=== PATIENT | male | born 1955 | race Caucasian/White ===

== ENCOUNTER 2016-09-13 09:35 | Inpatient (IN) | payer BC ==
[2016-09-13] VITALS (18 sets, daily range): BP systolic 97–160; BP diastolic 65–89
[~2016-09-13] VITALS: Ht 172.7 cm; Wt 65.3 kg
[2016-09-13] MEDS ORDERED: IV NORMAL SALINE 1000ML BAG 1,000 ML IV SCH (10:44)
[2016-09-13] MEDS ORDERED: MECLIZINE HCL 12.5 MG TABLET. PO ONE (10:45)
[2016-09-13] MEDS ORDERED: FENTANYL PF 100 MCG/2 ML VIAL. IV ONE (10:45)
[2016-09-13 10:56] LABS: BASO # 0.1 x10^3/uL (0.0-0.2); BASO % 1 % (0-3); EOS % 3 % (0-3); HEMATOCRIT 40.1 % (39.0-53.0); HEMOGLOBIN 13.2 g/dL (13.0-17.5); LYMPH # 0.8 x10^3/uL (1.0-4.8); LYMPH % 12 % (24-48); MEAN CORPUSCULAR HEMOGLOBIN 28 pg (25-35); MEAN CORPUSCULAR HGB CONC 33 g/dL (31-37); MEAN CORPUSCULAR VOLUME 84 fL (79-100); MONO % 8 % (0-9); NEUT % 76 % (31-73); PLATELET COUNT 253 x10^3/uL (140-400); RED BLOOD COUNT 4.77 x10^6/uL (4.30-5.70); RED CELL DISTRIBUTION WIDTH 16.5 % (11.5-14.5); WHITE BLOOD COUNT 6.6 x10^3/uL (4.0-11.0)
[2016-09-13] MEDS ORDERED: NICARDIPINE HCL 50 MG in IV NORMAL SALINE 250ML 250 ML IV PRN ×2 (11:15→12:00)
--- NOTE | 2016-09-13 11:16 | RAD ---
Indication difficulty walking. Nausea. Ataxia. Noncontrast imaging through the head was performed. No prior imaging of the head is available. The calvarium appears unremarkable. The visualized paranasal sinuses appear normal. There is a hyperdense, reasonably well-defined, 4.5 cm mass in the right posterior fossa consistent with an area of bleeding. There is some surrounding edema and mass effect. It is uncertain whether the bleeding is intra or extra-axial. There is some associated mild obstructive hydrocephalus. Supratentorially, apart from the mild obstructive hydrocephalus the examination is unremarkable. IMPRESSION: 4.5 cm mass in the right posterior fossa compatible with an area of bleeding. There is some associated obstructive hydrocephalus. It is uncertain whether the bleeding is intra or extra-axial in nature. The etiology is not clear on this exam. MRI should be considered for additional evaluation PQRS Compliance Statement: One or more of the following individualized dose reduction techniques were utilized for this examination: 1. Automated exposure control 2. Adjustment of the mA and/or kV according to patient size 3. Use of iterative reconstruction technique
[2016-09-13 11:18] LABS: CREATININE 0.9 mg/dL (0.7-1.3); GFR 86.4; POTASSIUM 3.5 mmol/L (3.5-5.1)
[2016-09-13] MEDS ORDERED: ONDANSETRON PF 4 MG/2 ML VIAL. IV PRN (11:30)
[2016-09-13] MEDS ORDERED: ACETAMINOPHEN 325 MG TABLET. PO PRN (11:30)
--- NOTE | 2016-09-13 11:55 | EKG ---
[facility] [address] [place] [address] Test Date: 2016-09-13 Test Time: 11:17:24 Pat Name: TERRA SANTAMARIA Department: Room: Gender: [employer] Operator: : 1955 Requested By: Juan David MOSELEY Order Number: [id number] Reading MD: Florencia Avendano Measurements Intervals [place] Rate: 65 P: 36 [place]: 136 QRS: 33 QRSD: 90 T: 36 QT: 446 QTc: 469 Interpretive Statements SINUS RHYTHM NORMAL ECG RI6.01 Unconfirmed report No previous ECG available for comparison Electronically Signed On 09-17-2016 10:13:35 [employer] by Florencia Avendano
[2016-09-13] MEDS ORDERED: DEXAMETHASONE SOD PHOS 20 MG/5 ML VIAL. IV ONE (12:00)
[2016-09-13] MEDS ORDERED: GADOBUTROL 7.5 MMOL/7.5 ML VIAL IV ONE (13:00)
--- NOTE | 2016-09-13 13:04 | RAD ---
PROCEDURE MRI brain without and with contrast. HISTORY Headache with hypertension, [place], dizziness, ataxia, hemorrhage TECHNIQUE Multiplanar, multi sequential pre and post contrast MR imaging was performed of the head. Contrast: 7.5 cc Gadavist COMPARISON None other than CT head earlier the same day FINDINGS Corresponding with the CT findings, there is a large intra-axial, enhancing mass of the right cerebellum, slightly hyperintense on the T1 sequence. Mass measures on the order of 4.6 centimeters transverse by 4.4 centimeters AP by 2.9 centimeters cc. There is some corresponding mild decreased signal on the gradient echo sequence. There is adjacent vasogenic edema signified by T2 and FLAIR hyperintense signal abnormality. There is mass effect of upon the partially effaced 4th ventricle which is somewhat deviated to the left. There are other smaller foci of abnormal intra-axial enhancement such as of the right occipital cortex axial image 12 0.4 cm, left caudate head 0.4 cm, left parietal lobe 0.4 cm axial image 15, left parietal lobe axial image 18 0.2 cm, tiny 0.1 cm right frontal lesion axial image 22, 2 right parietal lesions axial images 18 and 21 with the largest 0.6 cm, right frontal lobe axial image 21 0.4 cm, left lateral cerebellum axial image 3 0.7 cm. There are multiple other small foci of nonenhancing T2 and FLAIR hyperintense signal of the supratentorial white matter in a bilateral distribution greatest of the frontal parietal lobes. Other small enhancing lesions are associated with variable mild T2 and FLAIR hyperintense signal abnormality. There is very mild 3rd and lateral ventriculomegaly. There is no supratentorial midline shift. There is no restricted diffusion suggestive of recent infarct. 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 There is patchy minimal fluid and thickening of the mastoid air cells bilaterally. There is preservation of the major arterial intracranial flow voids at the skull base. There is patchy minimal ethmoid air cell mucosal thickening. There is some deviation of the nasal septum to the left. There is no significant abnormality of the pineal gland or the pituitary gland. IMPRESSION 1. There is a large, partially hemorrhagic, enhancing mass of the right cerebellum, multiple other smaller foci of the supratentorial parenchyma and also left lateral cerebellum. 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 Right cerebellar lesion results in partial effacement of the 4th ventricle, very mild 3rd and lateral ventriculomegaly. 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 2. Other scattered small foci of nonenhancing T2 and FLAIR hyperintense signal abnormality of the supratentorial white matter are nonspecific, may be due to chronic microvascular ischemic disease. Electronically signed by: Иван Ugalde MD (Sep 13, 2016 13:03:55)
[2016-09-13] MEDS: FENTANYL PF 100 MCG/2 ML VIAL. IV PRN ×2 (13:09→17:51)
--- NOTE | 2016-09-13 13:10 | PHYS DOC ---
Past Medical History Past Medical History: GERD Additional Past Medical Histor: Esophageal cancer s/p esophagectomy Past Surgical History: Cholecystectomy Additional Past Surgical Histo: PARTIAL STOMACH AND ESOPHAGUS REMOVED Alcohol Use: None Drug Use: None Adult General Chief Complaint Chief Complaint: NAUSEA/VOMITING/DIARRHA HPI HPI Patient is a 61 year old male who presents with 5 weeks of intermittent headaches, constant dizziness with fluctuations of intensity, and intermittent nausea. He was in [place] when his symptoms started. He saw a doctor in [place] with no workup and received medication for headache and dizziness. He has had occipital headaches that are gradual in onset and intermittent every 2-3 days over the past 5 weeks. States he has a baseline mild dizziness that worsens with head movements or standing up. When his headache and dizziness is worst, he has nausea without emesis. He denies vision changes, numbness, tingling, weakness, chest pain, palpitations, diaphoresis, lightheadedness, fever or chills, abdominal pain, diarrhea, dysuria. He notes he has esophagectomy with partial gastrectomy due to esophageal cancer. States he had full body imaging other than his head. Review of Systems Review of Systems Constitutional: Denies fever or chills [] Eyes: Denies change in visual acuity, redness, or eye pain [] HENT: Denies nasal congestion or sore throat [] Respiratory: Denies cough or shortness of breath [] Cardiovascular: No additional information not addressed in HPI [] GI: Denies abdominal pain, nausea, vomiting, bloody stools or diarrhea [] : Denies dysuria or hematuria [] Musculoskeletal: Denies back pain or joint pain [] Integument: Denies rash or skin lesions [] Neurologic: Denies focal weakness or sensory changes [] Endocrine: Denies polyuria or polydipsia [] Current Medications Current Medications Current Medications Medications (Trade) Dose Ordered Sig/Isai Start Time Stop Time Status Last Admin Dose Admin Fentanyl Citrate (Fentanyl 2ml Vial) 50 mcg 1X ONCE 09/13/16 10:45 09/13/16 10:53 DC 09/13/16 11:20 50 MCG Meclizine HCl 25 mg 25 mg 1X ONCE 09/13/16 10:45 09/13/16 10:53 DC 09/13/16 11:19 25 MG Nicardipine HCl/ Sodium Chloride (Cardene/Iv Sodium Chloride 0.9% 250ml) 270 ml @ 0 mls/hr CONT PRN 09/13/16 11:15 09/13/16 11:22 DC Sodium Chloride (Iv Sodium Chloride 0.9% 1000ml Bag) 1,000 ml @ 1,000 mls/hr Q1H 09/13/16 10:44 09/13/16 11:43 DC 09/13/16 11:20 1,000 MLS/HR Allergies Allergies Allergies Coded Allergies Type Severity Reaction Last Updated Verified No Known Drug Allergies 09/13/16 No Physical Exam Physical Exam Constitutional: Well developed, well nourished, no acute distress, non-toxic appearance. [] HENT: Normocephalic, atraumatic, bilateral external ears normal, oropharynx moist, no oral exudates, nose normal. [] Eyes: PERRLA, EOMI. [] Neck: Normal range of motion, supple. [] Cardiovascular:Heart rate regular rhythm [] Lungs & Thorax: Bilateral breath sounds clear to auscultation [] Abdomen: Bowel sounds normal, soft, no tenderness. [] Skin: Warm, dry, no erythema, no rash. [] Back: No tenderness, no CVA tenderness. [] Extremities: ROM intact, no edema. [] Neurologic: Alert and oriented X 3, normal motor function, normal sensory function, no focal deficits noted, cranial nerves II through XII intact, no nystagmus with right lateral gaze, positive Romberg, no extremity drift. [] Psychologic: Affect normal, judgement normal, mood normal. [] Current Patient Data Vital Signs Vital Signs Date Time Temp Pulse Resp B/P Pulse Ox O2 Delivery O2 Flow Rate FiO2 09/13/16 11:20 20 97 Room Air 09/13/16 11:15 60 175/88 09/13/16 09:43 97.4 97.4 Lab Values Laboratory Tests Test 09/13/16 09:40 White Blood Count 6.6x10^3/uL (4.0-11.0) Red Blood Count 4.77x10^6/uL (4.30-5.70) Hemoglobin 13.2g/dL (13.0-17.5) Hematocrit 40.1% (39.0-53.0) Mean Corpuscular Volume 84fL (79-100) Mean Corpuscular Hemoglobin 28pg (25-35) Mean Corpuscular Hemoglobin Concent 33g/dL (31-37) Red Cell Distribution Width 16.5% (11.5-14.5) H Platelet Count 253x10^3/uL (140-400) Neutrophils (%) (Auto) 76% (31-73) H Lymphocytes (%) (Auto) 12% (24-48) L Monocytes (%) (Auto) 8% (0-9) Eosinophils (%) (Auto) 3% (0-3) Basophils (%) (Auto) 1% (0-3) Neutrophils # (Auto) 5.0x10^3uL (1.8-7.7) Lymphocytes # (Auto) 0.8x10^3/uL (1.0-4.8) L Monocytes # (Auto) 0.5x10^3/uL (0.0-1.1) Eosinophils # (Auto) 0.2x10^3/uL (0.0-0.7) Basophils # (Auto) 0.1x10^3/uL (0.0-0.2) Sodium Level 141mmol/L (136-145) Potassium Level 3.5mmol/L (3.5-5.1) Chloride Level 107mmol/L (98-107) Carbon Dioxide Level 23mmol/L (21-32) Anion Gap 11 (6-14) Blood Urea Nitrogen 20mg/dL (8-26) Creatinine 0.9mg/dL (0.7-1.3) Estimated GFR (Cockcroft-Gault) 86.4 Glucose Level 102mg/dL (70-99) H Calcium Level 9.0mg/dL (8.5-10.1) Laboratory Tests 09/13/16 09:40 Laboratory Tests 09/13/16 09:40 EKG EKG EKG as interpreted by me as normal sinus rhythm, rate 65, no ST-T changes, MT 136, QTC 469, no ectopy Radiology/Procedures Radiology/Procedures CT head without contrast IMPRESSION: 4.5 cm mass in the right posterior fossa compatible with an area of bleeding. There is some associated obstructive hydrocephalus. It is uncertain whether the bleeding is intra or extra-axial in nature. The etiology is not clear on this exam. MRI should be considered for additional evaluation DICTATED and SIGNED BY: DAVID BLAIR MD DATE: 09/13/16 1110 Course & Med Decision Making Course & Med Decision Making Pertinent Labs and Imaging studies reviewed. (See chart for details) Laboratory evaluation is unremarkable. CT imaging is remarkable as above. Discussed case with Dr. Ortiz, neurosurgery, who recommends aggressive blood pressure control with nicardipine drip, IV Decadron, MRI brain w/wo contrast and admission to the ICU for every hour neuro checks. Neurology consult placed. Discussed case with Dr. Bailon, who will admit. Dragon Disclaimer Dragon Disclaimer This electronic medical record was generated, in whole or in part, using a voice recognition dictation system. Departure Departure Impression: Primary Impression: Intracranial hemorrhage Disposition: ADMITTED INPATIENT Condition: CRITICAL Referrals: NON,STAFF (PCP) Juan David MOSELEY MD Sep 13, 2016 13:10
[2016-09-13] MEDS ORDERED: LORAZEPAM 2 MG/ML VIAL IV PRN (14:15)
[2016-09-13 14:18] LABS: BARBITURATES NEG (NEG); BENZODIAZEPINES NEG (NEG); CANNABINOIDS NEG (NEG); COCAINE NEG (NEG); ETHANOL, URINE NEG (NEG); METHADONE NEG (NEG); OPIATES NEG (NEG); PHENCYCLIDINE NEG (NEG)
--- NOTE | 2016-09-13 14:35 | ACF ---
Admission Forms Criteria INTENSIVE CARE UNIT ADMISSION Intensive Care Admission Guidelines ( Place 'X' for any and all applicable criteria): Admission to ICU may be indicated when need is demonstrated by ANY ONE of the following (1)(2)(3)(4)(5)(6)(7)(8)(9) : [ ]I. Vital sign abnormalities, including ANY ONE of the following: [ ]a) Systolic arterial pressure less than 90 mm Hg, or 20 mm Hg below the patient's usual pressure [ ]b) Diastolic arterial pressure greater than 120 mm Hg [ ]c) Mean arterial pressure less than 70 mm Hg [A] [ ]d) Pulse less than 40 or greater than 140 beats per minute (in adult) [ ]e) Respiratory rate greater than 35 or less than 8 breaths per minute [ ]II. Laboratory findings (new), including ANY ONE of the following (10): [ ]a) Saturation of arterial oxygen less than 88% or partial pressure of oxygen less than 60 mm Hg (8.0 kPa) despite oxygen supplementation [ ]b) Rising partial pressure of carbon dioxide with respiratory acidosis [ ]c) pH less than 7.2 or greater than 7.65 [ ]d) Serum glucose greater than 800 mg/dL (44.4 mmol/L) [ ]e) Serum sodium less than 110 mEq/L (mmol/L) or greater than 160 mEq/L (mmol/L) [ ]f) Serum potassium less than 2 mEq/L (mmol/L) or greater than 7 mEq /L (mmol/L) [ ]g) Serum calcium greater than 15 mg/dL (3.75 mmol/L) [ ]h) Serum phosphorus less than 1 mg/dL (0.32 mmol/L) [ ]i) Toxic drug level or poisoning causing or likely to cause neurologic or Hemodynamic instability [ ]j) Less severe laboratory abnormalities contributing to ANY ONE of the following: [ ]i) Seizure [ ]ii) Altered mental status [ ]iii) Muscle weakness [ ]iv) Arrhythmias [ ]v) Hemodynamic instability [ ]vi) Other significant clinical manifestations [ ]III. Electrocardiogram (or cardiac monitoring) findings, including ANY ONE of the following: [ ]a) Inherently unstable or life-threatening arrhythmia (eg, sustained ventricular tachycardia, ventricular fibrillation, asystole) [ ]b) Arrhythmia causing severe hypotension (eg, bradycardia, tachycardia) [ ]c) Complete heart block causing severe hypotension [ ]d) Other findings indicative of a need for intensive care (eg , AL) [ ]IV.Physical findings, including ANY ONE of the following: [ ]a) Threatened airway [ ]b) Sudden altered mental status [ ]c) Repeated or prolonged seizures [ ]d) Coma [ ]e) New-onset anuria (urine output <0.1 mL/kg/hr over 4 h) [ ]f) Cyanosis (new) [ ]g) Cardiac tamponade [ ]h) Status post respiratory or cardiac arrest [ ]i) Severe villalba (eg, partial thickness villalba over more than 10% of body surface, third-degree villalba) [ ]j) Findings consistent with abdominal emergency (eg, peritoneal signs) [ ]V.Imaging findings, such as dissecting aneurysm or ruptured viscus [ ].Specific intervention or monitoring needed, as indicated by ANY ONE of the following: [ ]a) New need for assisted ventilation, invasive or noninvasive(11) [ ]b) New need for intubation (eg, to protect airway) [ ]c) New tracheostomy (less than 48 hours old) [ ]d) Hourly vital signs or neurologic checks [ ]e) Pulmonary artery line monitoring needed [ ]f) Continuous arterial line monitoring needed [ ]g) Continuous IV vasoactive drugs [ ]h) Continuous IV antiarrhythmics [ ]i) Large volume IV fluid resuscitation (eg, greater than 6 L per day ) [ ]j) Large or rapid transfusion needs (eg, more than 6 units within 24 hours) [ ]k) High-risk IV treatment, such as bolus IV medicatns or mannitol infusion [ ]l) Acute cardiac pacing [ ]m) Intra-aortic balloon pump [ ]n) Ventricular assist device [ ]o) Cardioversion [ ]p) Pericardiocentesis [ ]q) Hemodialysis in unstable patient [ ]r) Continuous renal replacement therapy (eg, continuous veno-venous hemofiltration) [ ]s) Peritoneal dialysis initiation [ ]t) Emergency bronchoscopic therapy (eg, for hemoptysis) [ ]u) Emergency endoscopic therapy for bleeding [ ]v) Balloon tamponade for variceal bleeding [ ]w) Intracranial pressure monitoring or tissue oxygen monitoring [ ]x) Ventriculostomy monitoring [ ]y) Treatment of ongoing seizures [ ]z) Induced hypothermia or coma [ ]aa) Ongoing frequent testing and treatment for acute conditions, including ANY ONE of the following: [ ]i) Correction of severe metabolic acidosis/ alkalosis [ ]ii). Severe fluid overload [ ]iii) Cerebral edema [ ]iv) Monitoring or suctioning for respiratory insufficiency or acidosis [ ]v) Monitoring for active bleeding [ ]bb) Rapid desensitization for high-risk hypersensitivity reaction to required medication (eg, penicillin)(12) [ ]cc) Other need for treatment or monitoring not available outside the ICU [ ]VII.Cardiology diagnoses or procedures, including ANY ONE of the following (13)(14)(15)(16)(17): [ ]a) Chest pain with ANY ONE of the following: [ ]i) Hemodynamic instability [ ]ii) Suspicion of diagnoses needing ICU care (eg, aortic dissection) [ ]iii) New unstable or symptomatic arrhythmia or ECG finding (eg, ventricular tachycardia, ventricular fibrillation, advanced heart block) [ ]iv) Syncope or near-syncope [ ]v) SBP less than 100 mm Hg [ ]vi) Pulmonary edema thought to be due to ischemia [ ]vii) New or worsening mitral regurgitation murmur, S3 , or rales [ ]b) Acute AL with complications as indicated by ANY ONE of the following: [ ]i) Persistent chest pain [ ]ii) Hemodynamic instability [ ]iii) New unstable or symptomatic arrhythmia or ECG finding (eg, ventricular tachycardia, ventricular fibrillation, advanced heart block) [ ]iv) Syncope or near-syncope [ ]v) Pulmonary edema thought to be due to ischemia [ ]vi) New or worsening mitral regurgitation murmur, S3 , or rales [ ]vii) New-onset bundle branch block [ ]viii) Hemorrhagic complication (eg, intracranial or access site bleed following thrombolysis) [ ]c) Cardiac arrhythmia or conduction defect with Hemodynamic instability [ ]d) Complication of cardiac ablation, including ANY ONE of the following(18): [ ]i) Pericardial tamponade [ ]ii) Hemodynamic instability [ ]iii) Thromboembolic stroke [ ]iv) Aortic valve injury [ ]v) Vascular injuries [ ]vi) Esophageal perforation [ ]vii) Severe arrhythmia [ ]viii) Air embolism [ ]ix) Other severe complication [ ]e) Cardiogenic shock [ ]f) Hypertensive emergency, with need for ANY ONE of the following(19): [ ]i) IV antihypertensive therapy [ ]ii) Invasive hemodynamic monitoring (eg, arterial line) [ ]g) Pericardial tamponade [ ]h) Severe heart failure, with ANY ONE of the following(15): [ ]i) Respiratory failure [ ]ii) Cardiogenic shock [ ]iii) Severe arrhythmias [ ]iv) Evidence of cardiac ischemia [ ]i Myocarditis, with ANY ONE of the following [ ]i) Hemodynamic instability [ ]ii) Respiratory failure [ ]iii) Severe arrhythmias [ ]iv) Need for cardiac assist device (eg, left ventricular assist device or extracorporeal membrane oxygenator) [ ]j) Status post cardiac arrest(20) [ ]VIII. Cardiovascular Surgery diagnoses or procedures, including ANY ONE of the following.(21)(22): [ ]a) Acute aortic dissection [ ]b) Aortic surgery for ANY ONE of the following: [ ]i) Thoracic aneurysm [ ]ii) Abdominal aneurysm with ANY ONE of the following(23): [ ]1) Emergency repair [ ]2) Severe cardiopulmonary disease [ ]3) Dialysis-dependent renal failure [ ]4) Need for IV blood pressure control [ ]5) Need for ongoing ventilatory support [ ]6) Perioperative complications, including ANY ONE of the following: [ ]A. Sustained Hemodynamic instability [ ]B. Cardiac ischemia or arrhythmia [ ]C. Hypothermia (less than 35 degrees C (95 degrees F)) [ ]D. Blood transfusion greater than 3 L [ ]iii) Aortic coarctation operative excision or repair [ ]iv) Aortofemoral or aortoiliac bypass with ANY ONE of the following: [ ]1) Continued intubation [ ]2) Hemodynamic instability [ ]3) Need for IV blood pressure control [ ]4) Severe cardiopulmonary disease [ ]c) Cardiac surgery [ ]d) Carotid endarterectomy or stent placement with ANY ONE of the following: [ ]i) Blood pressure <100/60 mm Hg or >160/90 mm Hg despite 4 h of postanesthetic management [ ]ii) New or progressive neurologic defect [ ]iii) Chest pain [ ]iv) Continued intubation [ ]v) Heart failure [ ]vi) Airway compromise by hematoma or vocal cord paralysis [ ]vi) Need for IV blood pressure control [ ]e) Heart transplant [ ]f) Infrainguinal peripheral vascular surgery with ANY ONE of the following: [ ]i) Hemodynamic instability [ ]ii) Acute complications such as persistent chest pain or respiratory distress [ ]iii) Requirement for IV antiarrhythmic or vasoactive agent [ ]iv) Requirement for pulmonary artery catheter [ ]v) Severe hypertension despite 6 hours of recovery room management [ ]g) Complications of any surgery requiring ICU intervention as indicated by ANY ONE of the following(24): [ ]i) Hemodynamic instability [ ]ii) Myocardial infarction with complications (eg, severe arrhythmia, hypotension) [ ]iii) Excessive bleeding or severe coagulopathy [ ]iv) Respiratory failure [ ]v) Renal failure [ ]vi) Airway instability or obstruction [ ]vii) Neurologic deterioration [ ]viii) Infection with likelihood of sepsis syndrome or significant fluid shifts [ ]IX.Endocrinology diagnoses or procedures, including ANY ONE of the following(25)(26): [ ]a) Adrenal crisis with Hemodynamic instability(27) [ ]b) Pheochromocytoma with ANY ONE of the following(28): [ ]i) Hypertensive crisis [ ]ii) Postoperative Hemodynamic instability [ ]iii) Need for IV vasoactive therapy [ ]iv) Need for invasive arterial or central venous pressure monitoring [ ]v) Organ ischemia [ ]c) Diabetic hyperosmolar state with obtundation or coma [ ]d) Diabetic ketoacidosis with ANY ONE of the following: [ ]i) Serum pH less than 7.10 or bicarbonate level less than 10 mEq/L (mmol/L) [ ]ii) Rapidly changing electrolytes [ ]iii) Hypotension [ ]iv) Requirement for large-volume fluid resuscitation [ ]v) Respiratory insufficiency [ ]vi) Life-threatening cardiac dysrhythmias [ ]vii) Obtundation [ ]viii) Severe precipitating condition such as sepsis, stroke, or acute AL [ ]e) Severe hypoglycemia requiring continuous glucose infusion with frequent adjustment or glucagon infusion [ ]f) Hyperthyroidism associated with thyroid storm (also known as thyrotoxic crisis)(29) [ ]g) Myxedema with life-threatening neurologic, cardiovascular, electrolyte, or renal dysfunction(29) [ ]h) Diabetes insipidus that cannot be controlled with routine medication (30) [ ]X. Gastroenterology diagnoses or procedures, including ANY ONE of the following: [ ]a) Esophageal perforation(31) [ ]b) Severe caustic esophageal injury(31) [ ]c) Liver disease complications with ANY ONE of the following(32): [ ]i) Severe hepatic encephalopathy (eg, stage 3 (somnolent) or higher) [ ]ii) Type 1 hepatorenal syndrome [ ]iii) Other cirrhosis-associated causes of acute renal failure ( eg, severe hypovolemia, acute tubular necrosis, abdominal compartment syndrome) [ ]iv) Hemodynamic instability [ ]v) Respiratory insufficiency due to severe ascites [ ]vi) Sepsis due to spontaneous bacterial peritonitis [ ]d) Fulminant hepatic failure when aggressive intervention or transplant is anticipated (32) [ ]e) Gastrointestinal hemorrhage (upper or lower) with ANY ONE of the following(33)(34): [ ]i) Active ongoing bleeding [ ]ii) Transfusion requirement greater than 2 units of packed red cells [ ]iii) Bleeding ulcer or nonbleeding visible vessel seen on endoscopy [ ]iv) Bleeding ulcer, visible blood vessel, bleeding (or recently bleeding) esophageal varices seen on endoscopy [ ]v) Hypotension [ ]vi) Syncope [ ]vii) Coagulopathy [ ]viii) Hepatic cirrhosis [ ]ix) Abnormal mental status [ ]x) Unstable comorbid condition or end organ dysfunction [ ]xi) Ischemia due to poor perfusion [ ]xii) Need for hemodynamic monitoring (eg, for patients with heart failure or valvular disease) [ ]f) Severe pancreatitis indicated by ANY ONE of the following (35)(36): [ ]i) Requirement for aggressive fluid resuscitation [ ]ii) Life-threatening electrolyte abnormality [ ]iii) SBP less than 90 mm Hg [ ]iv) Persistent tachycardia greater than 120 beats per minute [ ]v) Patients at high risk of rapid deterioration, including ANY ONE of the following: [ ]1) Calculated [place] II score greater than 8 [ ]2) Age older than 55 years [ ]3) BMI greater than 30 [ ]4) Greater than 30% pancreatic necrosis on CT scan [ ]5) Admission hematocrit greater than 47% (0.47) [ ]vi) Organ failure as indicated by ANY ONE of the following: [ ]1) Serum creatinine greater than 1.9 mg/dL (168 micromoles/L) [ ]2) Requirement for mechanical ventilation [ ]3) Urine output less than 50 mL/hour [ ]4) Arterial partial pressure of oxygen less than 60 mm Hg (8.0 kPa) despite supplemental oxygen [ ]5) PiO2/FiO2 ratio less than 300 [ ]vii) Expanding pseudocyst [ ]viii) Infected pancreas [ ]ix) Pleural effusion [ ]x) Encephalopathy [ ]xi) Severe comorbidities [ ]XI. General Surgery diagnoses or procedures, including ANY ONE of the following (9)(24)(37): [ ]a) Acute abdominal catastrophe (eg, ischemic bowel, perforated viscus, abdominal compartment syndrome) [ ]b) Complications of any surgery requiring ICU intervention as indicated by ANY ONE of the following: [ ]i) Hemodynamic instability [ ]ii) AL with complications (eg, severe arrhythmia, hypotension) [ ]iii) Excessive bleeding or severe coagulopathy [ ]iv) Respiratory failure [ ]v) Renal failure [ ]vi) Airway instability or obstruction [ ]vii) Neurologic deterioration [ ]viii) Infection with likelihood of sepsis syndrome or significant fluid shifts [ ]c) Multiple trauma with complicating features as indicated by ANY ONE of the following(38): [ ]i) Impending acute respiratory failure due to lung contusion, unstable chest wall, aspiration, or hemorrhage [ ]ii) Facial or neck injury threatening airway patency [ ]iii) Cardiac contusion [ ]iv) Pericardial effusion [ ]v) Bronchial tear [ ]vi) Hemodynamic instability [ ]vii) Rhabdomyolisis requiring large volume IV fluid resuscitation [ ]viii)Other significant complicating feature [ ]d) Organ transplant(39)(40) [ ]e) Esophagectomy(31) [ ]f) Whipple procedure [ ]g) Preoperative or postoperative patients requiring ICU intervention, such as hemodynamic optimization, pulmonary artery monitoring, mechanical ventilation, or extensive nursing care [ ]h) Obesity surgery patients with ANY ONE of the following(41): [ ]i) ICU management needs for comorbid conditions, such as sleep apnea or airway management needs [ ]ii) Failed postoperative extubation [ ]iii) Intraoperative complications [ ]XII. Nephrology diagnoses or procedures, including acute, or acute on chronic renal insufficiency with ANY ONE of the following(44)(45): [ ]a) Life-threatening electrolyte or acid-base disorder [ ]b) Acute pulmonary edema [ ]c) Hypotension or significant volume depletion [ ]d) Hypertensive emergency [ ]e) Underlying critical illness contributing to renal failure (eg, septic shock, hepatorenal syndrome) [ ]f) Need for continuous renal replacement therapy [X]XIII. Neurology diagnoses or procedures, including ANY ONE of the following (46)(47) [B] : [ ]a) Intracranial hypertension requiring ANY ONE of the following(49 ): [ ]i) Induced barbiturate coma [ ]ii) Pharmacologic paralysis or deep sedation and mechanical ventilation [ ]iii) Intracranial pressure or cerebral perfusion pressure monitoring [ ]iv) IV mannitol or hypertonic saline [ ]v) Frequent serum osmolality measurements [ ]b) Seizures with ANY ONE of the following(50): [ ]i) Status epilepticus [ ]ii) Airway compromise requiring or likely to require mechanical ventilation [ ]iii) Severe electrolyte abnormalities causing seizures [ ]c) Progressive acute neurologic dysfunction requiring or likely to require ANY ONE of the following: [ ]i) Mechanical ventilation [ ]ii) Intracranial pressure or cerebral perfusion pressure monitoring [ ]d) Meningitis with obtundation or respiratory insufficiency [C])(51 ) [ ]e) Stroke with ANY ONE of the following(52)(53): [ ]i) Need for observation after thrombolysis [ ]ii) Altered mental status [ ]iii) Need for mechanical ventilation [ ]iv) Elevated intracranial pressure [ ]v) Hypertensive emergency [ ]vi) High risk of progressive infarction or deterioration based on CT scan or MRI [ ]vii) Hemorrhage [ ]f) Acute coma [X]g) Acute spontaneous intracranial hemorrhage(53)(54) [ ]h) Drug ingestion with ANY ONE of the following(56)(57): [ ]i) Hemodynamic instability [ ]ii) Respiratory depression (partial pressure of carbon dioxide >45 mm Hg (6.0 kPa), new) [ ]iii) Patient requires or is likely to require mechanical ventilation. [ ]iv) Arrhythmias [ ]v) Seizures [ ]vi) Altered mental status ([place] coma scale score less than 12, new) [ ]vii) Significant risk for acute deterioration (eg, toxic level of hypotension or arrhythmia-producing drug) [ ]viii) Drug-induced hypothermia or hyperthermia [ ]ix) Increasing metabolic acidosis [ ]x) Severe hypoglycemia requiring glucose infusion with frequent adjustment or glucagon administration [ ]xi) Ongoing antidote administration (eg, continuous naloxone infusion, organophosphate toxicity treatment) [ ]xii) Emergency intervention need (eg, dialysis, hemoperfusion, restraints) [ ]i) Brain with preparation for organ donation [ ]j) Traumatic brain injury with ANY ONE of the following(55): [ ]i) Altered mental status (eg, new onset [place] coma scale score less than 10) [ ]ii) Cerebral edema [ ]iii) Cerebral hemorrhage [ ]iv) Increased intracranial pressure [ ]XIV. Neurosurgery diagnoses or procedures, including ANY ONE of the following(49)(58)(59): [ ]a) Emergency craniotomy for tumor, hematoma, or trauma [ ]b) Elective craniotomy for posterior fossa tumor [ ]c) Elective craniotomy (supratentorial) for tumor with ANY ONE of the following: [ ]i) Postoperative neurologic deficit or impaired consciousness 6 hours after completion of procedure [ ]ii) SBP less than 110 mm Hg or greater than 180 mm Hg despite therapy [ ]iii) Extensive operative blood loss [ ]iv) High anesthesia risk (eg, [place] [employer] score greater than 3 [ ]d) Craniotomy for aneurysm with ANY ONE of the following: [ ]i) Postoperative neurologic deficit or impaired consciousness 6 hours after completion of procedure [ ]ii) Preoperative [place] grade 3 or higher [ ]iii) SBP less than 110 mm Hg or greater than 180 mm Hg despite therapy [ ]iv) Intracranial pressure monitoring [ ]e) Acute spinal cord injury [ ]f) Subarachnoid hemorrhage [ ]g) Traumatic brain injury with ANY ONE of the following: [ ]i) Acute mental status change ([place] coma scale score less than 10) [ ]ii) CT scan showing cerebral edema or hemorrhage [ ]iii) Intracranial pressure monitoring [ ]h) Complications of any surgery requiring ICU intervention as indicated by ANY ONE of the following(60): [ ]i) Hemodynamic instability [ ]ii) AL with complications (eg, severe arrhythmia, hypotension) [ ]iii) Excessive bleeding or severe coagulopathy [ ]iv) Respiratory failure [ ] v) Renal failure [ ]vi) Airway instability or obstruction [ ]vii) Neurologic deterioration [ ]viii) Infection with likelihood of sepsis syndrome or significant fluid shifts [ ]i) Preoperative or postoperative patients requiring ICU intervention, such as hemodynamic optimization, pulmonary artery monitoring, mechanical ventilation, or extensive nursing care [ ]XV.Obstetrics and Gynecology diagnoses or procedures, including ANY ONE of the ffg. (61)(62)(63): [ ]a) Severe peripartum condition as indicated by ANY ONE of the following: [ ]i) Eclampsia [ ]ii) Hypertensive emergency [ ]iii) HELLP syndrome (hemolysis, elevated liver enzymes, and low platelet count) [ ]iv) Pulmonary edema [ ]v) Respiratory failure [ ]vi) Pulmonary embolism [ ]vii) Anaphylactoid syndrome of (amniotic fluid embolus) [ ]viii) Ovarian hyperstimulation syndrome [D] [ ]ix) Acute fatty liver of (hepatic failure) [ ]x) Complications such as placental abruption or severe hemorrhage [ ]xi) Sepsis (eg, puerperal sepsis, chorioamnionitis, septic ) [ ]xii) cardiomyopathy with severe congestive heart failure (eg, respiratory failure, cardiogenic shock) [ ]b) Ruptured ectopic [ ]c) Complications of any surgery requiring ICU intervention as indicated by ANY ONE of the following: [ ]i) Hemodynamic instability [ ]ii) AL with complications (eg, severe arrhythmia, hypotension) [ ]iii) Excessive bleeding or severe coagulopathy [ ]iv) Respiratory failure [ ]v) Renal failure [ ]vi) Airway instability or obstruction [ ]vii) Neurologic deterioration [ ]viii) Infection with likelihood of sepsis syndrome or significant fluid shifts [ ]d) Preoperative or postoperative patients requiring ICU intervention , such as hemodynamic optimization, pulmonary artery monitoring, mechanical ventilation, or extensive nursing care [ ]XVI.Ophthalmology diagnoses or procedures, including ANY ONE of the following (64): [ ]a) Complications of any surgery requiring ICU intervention, such as ANY ONE of the following: [ ]i) Hemodynamic instability [ ]ii) AL with complications (eg, severe arrhythmia, hypotension) [ ]iii) Excessive bleeding or severe coagulopathy [ ]iv) Respiratory failure [ ]v) Renal failure [ ]vi) Airway instability or obstruction [ ]vii) Neurologic deterioration [ ]viii) Infection with likelihood of sepsis syndrome or significant fluid shifts [ ]b) Preoperative or postoperative patients requiring ICU intervention , such as hemodynamic optimization, pulmonary artery monitoring, mechanical ventilation, or extensive nursing care [ ]XVII.Orthopedics diagnoses or procedures, including ANY ONE of the following [phone]): [ ]a) Complications of any surgery requiring ICU intervention as indicated by ANY ONE of the following: [ ]i) Hemodynamic instability [ ]ii) AL with complications (eg, severe arrhythmia, hypotension) [ ]iii) Excessive bleeding or severe coagulopathy [ ]iv) Respiratory failure [ ]v) Renal failure [ ]vi) Airway instability or obstruction [ ] vii) Neurologic deterioration [ ]viii) Infection with likelihood of sepsis syndrome or significant fluid shifts [ ]b) Multiple trauma with complicating features as indicated by ANY ONE of the following(38): [ ]i) Impending acute respiratory failure due to lung contusion, unstable chest wall, pneumothorax, aspiration, or hemorrhage [ ]ii) Facial or neck injury threatening airway patency [ ]iii) Cardiac contusion [ ]iv) Rhabdomyolysis requiring large volume IV fluid resuscitation [ ]v) Pericardial effusion [ ]vi) Bronchial tear [ ]vii) Hemodynamic instability [ ]viii) Other significant complicating feature [ ]c) Threatened compartment syndrome [ ]d) Severe villalba with ANY ONE of the following(68)(69)(70): [ ]i) Hypotension or requirement for aggressive fluid resuscitation [ ]ii) Respiratory insufficiency with requirement for high- flow oxygen or mechanical ventilation [ ]iii) Carbon monoxide poisoning [ ]iv) Life-threatening cardiac, renal, pulmonary, or neurologic dysfunction [ ]v) High-voltage (eg, 1000 volts or more) electrical burn [ ]vi) Requirement for frequent or intensive debridement and dressing changes; examples include: [ ]1) Partial thickness villalba greater than 10% of body surface [ ]2) Villalba on face, hands, feet, genitalia, perineum , or major joints [ ]3) Third-degree villalba [ ]4) Any burn greater than 15% of body surface area [ ]vii) Inhalation lung injury [ ]viii) Concomitant trauma or other medical condition requiring ICU care [ ]e) Preoperative or postoperative patients requiring ICU intervention , such as hemodynamic optimization, pulmonary artery monitoring, mechanical ventilation, or extensive nursing care [ ]XVIII.Otolaryngology diagnoses or procedures, including ANY ONE of the following (71)(72): [ ]a) Complications of any surgery requiring ICU intervention as indicated by ANY ONE of the following: [ ]i) Hemodynamic instability [ ]ii) AL with complications (eg, severe arrhythmia, hypotension) [ ]iii) Excessive bleeding or severe coagulopathy [ ]iv) Respiratory failure [ ]v) Renal failure [ ]vi) Airway instability or obstruction [ ]vii) Neurologic deterioration [ ]viii) Infection with likelihood of sepsis syndrome or significant fluid shifts [ ]b) Airway or hemodynamic compromise that persists after 3 hours of observation in postanesthesia care unit following nasal, palate (eg, uvulopalatopharyngoplasty or palatoplasty), or tongue surgery for sleep apnea [ ]c) Preoperative or postoperative patient requiring ICU intervention, such as hemodynamic optimization, pulmonary artery monitoring, mechanical ventilation, or extensive nursing care [ ]d) Symptomatic upper airway compromise (eg, laryngeal edema, mass) [ ]e) Other airway-compromising procedure (eg, posterior nasal packing) [ ]XIX.Thoracic Surgery and Pulmonary Disease Diagnosis or procedures, including ANY ONE of the following(6): [ ]a) Asthma with ANY ONE of the following(73)(74): [ ]i) Impending or actual respiratory arrest [ ]ii) Need for mechanical ventilation [ ]iii) Peak expiratory flow rate less than 30% of predicted or personal best [ ]iv) Peak expiratory flow rate or FEV1 less than 40% predicted after 1 hour of initial treatment [ ]v) Acidosis [ ]vi) Persistent or worsening hypoxia after initial treatment [ ]vii) Hypercapnia (eg, partial pressure of carbon dioxide greater than 43 mm Hg (5.7 kPa)) [ ]viii) Severe drowsiness, confusion, or coma [ ]ix) Requiring continuous inhaled bronchodilator [ ]b) COPD with ANY ONE of the following(75): [ ]i) Need for assisted ventilation [ ]ii) Hemodynamic instability [ ]iii) Severe dyspnea unresponsive to initial treatment [ ]iv) Change in level of consciousness [ ]v) Persistent findings despite oxygen and outpatient management, including ANY ONE of the following: [ ]1) Partial pressure of oxygen less than 40 mm Hg ( 5.3 kPa) [ ]2) Partial pressure of carbon dioxide greater than 60 mm Hg (8.0 kPa) [ ]3) pH less than 7.25 [ ]4) Worsening hypoxemia or acidosis [ ]c) Cor pulmonale with ANY ONE of the following(75)(76)(77): [ ]i) Hemodynamic instability [ ]ii) Need for IV inotropic or vasoactive agent [ ]iii) Need for invasive hemodynamic monitoring (eg, central venous, pulmonary artery, or arterial catheter) [ ]iv) Hypoxemia with partial pressure of oxygen less than 40 mm Hg (5.3 kPa) [ ]v) Worsening hypoxemia or acidosis despite oxygen therapy [ ]vi) Need for assisted ventilation [ ]vii) Need for right ventricular assist device [ ]viii) Unstable atrial tachyarrhythmia [ ]ix) Need for inhaled nitric oxide [ ]d) Aspiration pneumonia with ANY ONE of the following(78): [ ]i) Acute respiratory distress syndrome (PaO2/FiO2 ratio of 300 or less) [ ]ii) Impending or actual respiratory arrest [ ]iii) Need for invasive or noninvasive mechanical ventilation [ ]e) Pneumocystis jiroveci pneumonia with ANY ONE of the following(79): [ ]i) Impending or actual respiratory arrest [ ]ii) Hypoxia (eg, PO260 mmGh (8.0 kPa) or less despite oxygen therapy) [ ]iii) Need for invasive or noninvasive mechanical ventilation [ ]f) Pneumonia with ANY ONE of the following(80)(81)(82): [ ]i) Need for invasive or noninvasive assisted ventilation [ ]ii) Hemodynamic instability [ ]iii) Severity factors as indicated by 3 or MORE of the following: [ ]1) Respiratory rate 30 breaths per minute or greater [ ]2) PaO2/FiO2 ratio of 250 or less [ ]3) Multilobed infiltrates [ ]4) Altered mental status [ ]5) BUN 20 mg/dL (7.1 mmol/L) or greater [ ]6) WBC count less than 4000/mm3 (4 x109/L) [ ]7) Platelet count <100,000/mm3 (100 x109/L) [ ]8) Temperature less than 36 degrees C (96.8 degrees F ) [ ]9) Hypotension requiring aggressive fluid resuscitation [ ]g) Pulmonary hypertension requiring initiation of parenteral pulmonary vasodilator or trial of inhaled nitric oxide (eg, need for right heart catheterization)(76) [ ]h) Impending respiratory failure as indicated by ANY ONE of the following: [ ]i) Respiratory rate greater than 30 or partial pressure of oxygen less than 60 mm Hg (8.0 kPa) on 50% oxygen or more [ ]ii) Partial pressure of carbon dioxide greater than 45 mm Hg (6.0 kPa) with pH less than 7.35 [ ]i) Respiratory failure with ANY ONE of the following (47): [ ]i) Need for invasive or noninvasive mechanical ventilation [ ]ii) High likelihood of requiring mechanical ventilation within 24 hours [ ]iii) Observation in the first several hours immediately after extubation from mechanical ventilation [ ]iv) Need for close observation and aggressive therapy, such as suctioning, chest physiotherapy, or inhalation treatments at intervals less than 1 hour [ ]v) Pharmacologic ventilatory paralysis [ ]j) Venous thromboembolism with need for systemic or catheter- directed thrombolysis (eg, for limb-threatening thrombosis, phlegmasia cerulea dolens) (83) [ ]k) Pulmonary embolus with ANY ONE of the following(83): [ ]i) Hypotension [ ]ii) Severe hypoxia [ ]iii) Dangerous arrhythmia [ ]iv) Bleeding [ ]v) Need for systemic or catheter-directed thrombolysis [ ]l) Lobectomy or other major thoracic surgery [ ]m) Lung transplant [ ]n) Symptomatic upper airway obstruction (eg, laryngeal edema, mass) [ ]o) Massive hemoptysis [ ]p) Infection or thrombosis of an intravenous device with ANY ONE of the following(6)(84): [ ]i) Hemodynamic instability [ ]ii) Requirement for frequent hemodynamic measurements [ ]iii) Shock [ ]iv) End organ dysfunction [ ] v) Acute renal failure due to missed dialysis [ ]vi) Unstable acute complication (eg, pericardial tamponade , tension pneumothorax) [ ]q) Traumatic rib fracture or fractures with ANY ONE of the following(85): [ ]i) Injury severity score of 19 or greater [ ]ii) Respiratory insufficiency [ ]iii) Flail chest [ ]iv) Sternum fracture [ ]v) Vascular injury (eg, heart or great vessels) [ ]r) Pleural effusion with ANY ONE of the following(86): [ ]i) Respiratory insufficiency [ ]ii) Hemothorax with active ongoing bleeding [ ]iii) Hemodynamic instability [ ]iv) Unstable comorbid condition (eg, sepsis or heart failure [ ]XX. Urology diagnoses or procedures, including ANY ONE of the following ( 87)(88): [ ]a) Renal transplant [ ]b) Complications of any surgery requiring ICU intervention as indicated by ANY ONE of the following: [ ]i) Hemodynamic instability [ ]ii) AL with complications (eg, severe arrhythmia, hypotension) [ ]iii) Excessive bleeding or severe coagulopathy [ ]iv) Respiratory failure [ ]v) Renal failure [ ]vi) Airway instability or obstruction [ ]vii) Neurologic deterioration [ ]viii) Infection with likelihood of sepsis syndrome or significant fluid shifts [ ]c) Preoperative or postoperative patients requiring ICU intervention , such as hemodynamic optimization, pulmonary artery monitoring, mechanical ventilation , or extensive nursing care [ ]XXI.Infectious Disease diagnoses or procedures, with ANY ONE of the following (6)(43): [ ]a) Hemodynamic instability [ ]b) Shock [ ]c) Requirement for frequent hemodynamic measurements (eg, arterial catheter, pulmonary artery catheter) [ ]d) Sepsis or suspected sepsis with end organ dysfunction (eg, acute kidney injury, acute respiratory distress syndrome) [ ]e) Necrotizing soft tissue infection [ ] XXII.Hematology - Oncology diagnoses or procedures, including chemotherapy administration with ANY ONE of the following(42): [ ]a) Hemodynamic instability [ ]b) Tumor lysis syndrome with ANY ONE of the following : [ ]1) Acute kidney injury [ ]2) Severe electrolyte abnormality [ ]3) Cardiac dysrhythmia [ ]XXIII. Systemic conditions, including ANY ONE of the following: [ ]a) Severe electrolyte or metabolic disturbance causing or likely to cause ANY ONE of the following(10)(89)(90): [ ]i) Life-threatening cardiac dysrhythmia [ ]ii) Respiratory insufficiency [ ]iii) Altered mental status [ ]iv) Seizures [ ]v) Hemodynamic instability [ ]vi) Muscular weakness [ ]b) Environmental injuries such as hypothermia, hyperthermia, electrical injuries, or near drowning(70)(91)(92) The original [employer] content created by [employer] has been revised. The portions of the content which have been revised are identified through the use of italic text or in bold, and [facility] has neither reviewed nor approved the modified material. All other unmodified content is copyright [employer]. Please see references footnoted in the original [facility] edition 2016 Admission Criteria Met?: Yes ZAHRAA LIRIANO Sep 13, 2016 14:35
--- NOTE | 2016-09-13 14:50 | PDOC ---
SUBJECTIVE Subjective Pt seen/examined consult dictated #[id number]. 61M with recent esophageal CA s/p resection with chemo and xrt about 4 months ago presents with 4 weeks of headache, nausea, vomiting. Some ataxia. Recently flew back from [place] and had increased headache, n/v. Imaging reveals right hemorrhagic cerebellar mass and multiple small diffuse enhancing masses throughout the cerebral and cerebellar parenchyma. Neurologically intact except some decreased right cerebellar fxn. Awake, bright, and alert with intact upgaze and equal pupils. States feels better now that SBP is lower (was 200 in ED). Steroid initiated. Monitor closely for decline. On cardene gtt -SBP goal less than 140. Consult onc services. Medical clearance. Plan for suboccipital craniectomy for removal of large right cerebellar hemorrhagic mass AM 09/15/16 if continues to be stable. Discussed in detail with patient and family. OBJECTIVE Vital Signs Vital Signs Date Time Temp Pulse Resp B/P Pulse Ox O2 Delivery O2 Flow Rate FiO2 09/13/16 13:09 18 96 Room Air 09/13/16 13:06 72 20 170/79 97 Room Air 09/13/16 12:06 70 20 152/79 97 Room Air 09/13/16 11:45 62 20 161/83 97 Room Air 09/13/16 11:20 20 97 Room Air 09/13/16 11:15 60 18 175/88 96 Room Air 09/13/16 10:45 54 18 177/88 96 Room Air 09/13/16 10:15 56 18 177/93 96 Room Air 09/13/16 09:43 97.4 61 18 200/95 96 Room Air 97.4 COMMENT Lab Laboratory Tests Test 09/13/16 09:40 09/13/16 13:55 White Blood Count 6.6x10^3/uL (4.0-11.0) Red Blood Count 4.77x10^6/uL (4.30-5.70) Hemoglobin 13.2g/dL (13.0-17.5) Hematocrit 40.1% (39.0-53.0) Mean Corpuscular Volume 84fL (79-100) Mean Corpuscular Hemoglobin 28pg (25-35) Mean Corpuscular Hemoglobin Concent 33g/dL (31-37) Red Cell Distribution Width 16.5% (11.5-14.5) Platelet Count 253x10^3/uL (140-400) Neutrophils (%) (Auto) 76% (31-73) Lymphocytes (%) (Auto) 12% (24-48) Monocytes (%) (Auto) 8% (0-9) Eosinophils (%) (Auto) 3% (0-3) Basophils (%) (Auto) 1% (0-3) Neutrophils # (Auto) 5.0x10^3uL (1.8-7.7) Lymphocytes # (Auto) 0.8x10^3/uL (1.0-4.8) Monocytes # (Auto) 0.5x10^3/uL (0.0-1.1) Eosinophils # (Auto) 0.2x10^3/uL (0.0-0.7) Basophils # (Auto) 0.1x10^3/uL (0.0-0.2) Sodium Level 141mmol/L (136-145) Potassium Level 3.5mmol/L (3.5-5.1) Chloride Level 107mmol/L (98-107) Carbon Dioxide Level 23mmol/L (21-32) Anion Gap 11 (6-14) Blood Urea Nitrogen 20mg/dL (8-26) Creatinine 0.9mg/dL (0.7-1.3) Estimated GFR (Cockcroft-Gault) 86.4 Glucose Level 102mg/dL (70-99) Calcium Level 9.0mg/dL (8.5-10.1) Urine Opiates Screen Neg (NEG) Urine Methadone Screen Neg (NEG) Urine Barbiturates Neg (NEG) Urine Phencyclidine Screen Neg (NEG) Urine Amphetamine/Methamphetamine Neg (NEG) Urine Benzodiazepines Screen Neg (NEG) Urine Cocaine Screen Neg (NEG) Urine Cannabinoids Screen Neg (NEG) Urine Ethyl Alcohol Neg (NEG) BHARTI VALADEZ MD Sep 13, 2016 14:50
[2016-09-13] MEDS ORDERED: POTASSIUM CL 20MEQ D5-0.45NACL 1,000 ML IV ONE (15:00)
--- NOTE | 2016-09-13 15:15 | PDOC1 ---
History and Physical Date of Admission Date of Admission DATE: 09/13/16 TIME: 14:55 Identification/Chief Complaint Chief Complaint headache Source Source: Caregiver, Chart review, Patient History of Present Illness History of Present Illness patient has worsening headache for weeks. Pain 5/10 now, he takes Percocet 10/325 for intermittent pain. Had hx of esophageal cancer s/p resection in [place], [place], has been following there Admit today with nausea, some ataxia and worsening headache CT concerning for acute bleed MRI shows subacute bleed, likley metastatic lesions Past Medical History Past Medical History has 4 kids, 7 grandkids Cardiovascular: No pertinent hx Pulmonary: No pertinent hx GI: GERD Heme/Onc: Cancer Rheumatologic: No pertinent hx Infectious disease: No pertinent hx ENT: No pertinent hx Renal/: Chronic renal insuff Endocrine: No pertinent hx Dermatology: No pertinent hx Past Surgical History Past Surgical History: Other (esosp resection) Family History Family History: No Significant Social History Smoke: No ALCOHOL: none Current Problem List Problem List Problems Medical Problems: (1) Intracranial hemorrhage Status: Acute Problems: Current Medications Current Medications Current Medications Sodium Chloride (Iv Sodium Chloride 0.9% 1000ml Bag) 1,000 ml @ 1,000 mls/hr Q1H IV Last administered on 09/13/16 11:20; Start 09/13/16 at 10:44; Stop at 11:43; Status DC Fentanyl Citrate (Fentanyl 2ml Vial) 50 mcg 1X ONCE IV Last administered on 11:20; Start 09/13/16 at 10:45; Stop 09/13/16 at 10:53; Status DC Meclizine HCl 25 mg 25 mg 1X ONCE PO Last administered on 09/13/16 11:19; Start 09/13/16 at 10:45; Stop 09/13/16 at 10:53; Status DC Nicardipine HCl/ Sodium Chloride (Cardene/Iv Sodium Chloride 0.9% 250ml) 270 ml @ 0 mls/hr CONT PRN IV SEE I/O RECORD; Start 09/13/16 at 11:15; Stop 09/13/16 at 11:22; Status DC Dexamethasone Sodium Phosphate 10 mg 10 mg 1X ONCE IV Last administered on 09/13 11:33; Start 09/13/16 at 12:00; Stop 09/13/16 at 12:01; Status DC Nicardipine HCl/ Sodium Chloride (Cardene/Iv Sodium Chloride 0.9% 250ml) 270 ml @ 0 mls/hr CONT PRN IV SEE I/O RECORD; Start 09/13/16 at 12:00 Ondansetron HCl (Zofran) 4 mg PRN Q8HRS PRN IV NAUSEA/VOMITING; Start 09/13/16 at 11:30; Stop 09/14/16 at 11:29 Fentanyl Citrate (Fentanyl 2ml Vial) 50 mcg PRN Q1HR PRN IV PAIN Last administered on 09/13/16 13:09; Start 09/13/16 at 11:30; Stop 09/14/16 at 11:29 Acetaminophen (Tylenol) 650 mg PRN Q4HRS PRN PO FEVER; Start 09/13/16 at 11:30; Stop 09/14/16 at 11:29 Dexamethasone Sodium Phosphate (Decadron) 2 mg Q6HRS IV ; Start 09/13/16 at 18:00 ; Stop 09/13/16 at 18:00; Status DC Gadobutrol (Gadavist) 7.5 mmol 1X ONCE IV Last administered on 09/13/16 12:56 ; Start 09/13/16 at 13:00; Stop 09/13/16 at 13:01; Status DC Dexamethasone Sodium Phosphate 4 mg 4 mg Q6HRS IV ; Start 09/13/16 at 18:00 Levetiracetam/ Sodium Chloride (Keppra/Iv Sodium Chloride 0.9% 100ml) 105 ml @ 400 mls/hr Q12HR IV ; Start 09/13/16 at 14:30 Lorazepam (Ativan) 2 mg PRN Q6HRS PRN IV ANXIETY / AGITATION; Start 09/13/16 at 14:15 Allergies Allergies: Coded Allergies: No Known Drug Allergies (Unverified , 09/13/16) ROS General: No: Appetite, Chills, Fatigue, Malaise, Night Sweats, Other PSYCHOLOGICAL ROS: No: Anxiety, Behavioral Disorder, Concentration difficultie , Decreased libido, Depression, Disorientation, Hallucinations, Hostility, Irritablity, Memory difficulties, Mood Swings, Obsessive thoughts, Other, Physical abuse, Sexual abuse, Sleep disturbances, Suicidal ideation Eyes: No Blurry vision, No Decreased vision, No Double vision, No Dry eyes, No Excessive tearing, No Eye Pain, No Itchy Eyes, No Loss of vision, No Other, No Photophobia, No Scotomata, No Uses contacts, No Uses glasses HEENT: YES: Heacaches, No: Epistaxis, Hearing change, Nasal congestion, Nasal discharge, Oral lesions, Other, Sinus pain, Sneezing, Snoring, Sore Throat, Tinnitus, Vertigo, Visual Changes, Vocal changes Respiratory: No: Hemoptysis, Orthopnea, Other, Pleuritic Pain, SOB with excertion, Shortness of breath, Sputum Changes, Stridor, Tachypnea, Wheezing Cardiovascular: No Chest Pain, No Edema, No Lt Headedness, No Orthopnea, No Other, No Palpitations, No Paroxysmal Noc. Dyspnea Gastrointestinal: Yes Abdominal Pain, Yes Nausea, No Constipation, No Diarrhea, No Hematochezia, No Melena, No Other, No Vomiting Genitourinary: No , No , No , No , No , No , No , No Discharge, No Dysuria, No Flank Pain, No Frequency, No Hematuria, No Incontinence, No Other, No Pain, No Retention, No Urgency Musculoskeletal: Yes Gait Disturbance, No Joint Pain, No Joint Stiffness, No Joint Swelling, No Muscle Pain, No Muscular Weakness, No Other, No Pain In:, No Swelling In: Neurological: Yes Dizziness, Yes Headaches, Yes Weakness, No Behavorial Changes, No Bowel/Bladder ControlChng, No Confusion, No Gait Disturbance, No Impaired Coord/balance, No Memory Loss, No Numbness/Tingling, No Other, No Seizures, No Speech Problems, No Tremors, No Visual Changes Skin: No Acne, No Dry Skin, No Eczema, No Hair Changes, No Lumps, No Mole Changes, No Mottling, No Nail Changes, No Other, No Pruritus, No Rash, No Skin Lesion Changes Physical Exam General: Alert, Oriented X3, Cooperative, mild distress HEENT: Atraumatic, PERRLA Lungs: Clear to auscultation Heart: S1S2, no murmurs Abdomen: Normal bowel sounds, Soft Extremities: No clubbing, No cyanosis, No edema Neuro: Normal speech, Sensation intact, Cranial nerves 3-12 NL Psych/Mental Status: Mood NL Vitals Vitals Vital Signs Date Time Temp Pulse Resp B/P Pulse Ox O2 Delivery O2 Flow Rate FiO2 2/6/17 13:09 18 96 Room Air 09/13/16 13:06 72 170/79 09/13/16 09:43 97.4 97.4 Labs Labs Laboratory Tests Test 09/13/16 09:40 09/13/16 13:55 White Blood Count 6.6x10^3/uL (4.0-11.0) Red Blood Count 4.77x10^6/uL (4.30-5.70) Hemoglobin 13.2g/dL (13.0-17.5) Hematocrit 40.1% (39.0-53.0) Mean Corpuscular Volume 84fL (79-100) Mean Corpuscular Hemoglobin 28pg (25-35) Mean Corpuscular Hemoglobin Concent 33g/dL (31-37) Red Cell Distribution Width 16.5% (11.5-14.5) Platelet Count 253x10^3/uL (140-400) Neutrophils (%) (Auto) 76% (31-73) Lymphocytes (%) (Auto) 12% (24-48) Monocytes (%) (Auto) 8% (0-9) Eosinophils (%) (Auto) 3% (0-3) Basophils (%) (Auto) 1% (0-3) Neutrophils # (Auto) 5.0x10^3uL (1.8-7.7) Lymphocytes # (Auto) 0.8x10^3/uL (1.0-4.8) Monocytes # (Auto) 0.5x10^3/uL (0.0-1.1) Eosinophils # (Auto) 0.2x10^3/uL (0.0-0.7) Basophils # (Auto) 0.1x10^3/uL (0.0-0.2) Sodium Level 141mmol/L (136-145) Potassium Level 3.5mmol/L (3.5-5.1) Chloride Level 107mmol/L (98-107) Carbon Dioxide Level 23mmol/L (21-32) Anion Gap 11 (6-14) Blood Urea Nitrogen 20mg/dL (8-26) Creatinine 0.9mg/dL (0.7-1.3) Estimated GFR (Cockcroft-Gault) 86.4 Glucose Level 102mg/dL (70-99) Calcium Level 9.0mg/dL (8.5-10.1) Urine Opiates Screen Neg (NEG) Urine Methadone Screen Neg (NEG) Urine Barbiturates Neg (NEG) Urine Phencyclidine Screen Neg (NEG) Urine Amphetamine/Methamphetamine Neg (NEG) Urine Benzodiazepines Screen Neg (NEG) Urine Cocaine Screen Neg (NEG) Urine Cannabinoids Screen Neg (NEG) Urine Ethyl Alcohol Neg (NEG) Laboratory Tests Test 09/13/16 09:40 09/13/16 13:55 White Blood Count 6.6x10^3/uL (4.0-11.0) Red Blood Count 4.77x10^6/uL (4.30-5.70) Hemoglobin 13.2g/dL (13.0-17.5) Hematocrit 40.1% (39.0-53.0) Mean Corpuscular Volume 84fL (79-100) Mean Corpuscular Hemoglobin 28pg (25-35) Mean Corpuscular Hemoglobin Concent 33g/dL (31-37) Red Cell Distribution Width 16.5% (11.5-14.5) Platelet Count 253x10^3/uL (140-400) Neutrophils (%) (Auto) 76% (31-73) Lymphocytes (%) (Auto) 12% (24-48) Monocytes (%) (Auto) 8% (0-9) Eosinophils (%) (Auto) 3% (0-3) Basophils (%) (Auto) 1% (0-3) Neutrophils # (Auto) 5.0x10^3uL (1.8-7.7) Lymphocytes # (Auto) 0.8x10^3/uL (1.0-4.8) Monocytes # (Auto) 0.5x10^3/uL (0.0-1.1) Eosinophils # (Auto) 0.2x10^3/uL (0.0-0.7) Basophils # (Auto) 0.1x10^3/uL (0.0-0.2) Sodium Level 141mmol/L (136-145) Potassium Level 3.5mmol/L (3.5-5.1) Chloride Level 107mmol/L (98-107) Carbon Dioxide Level 23mmol/L (21-32) Anion Gap 11 (6-14) Blood Urea Nitrogen 20mg/dL (8-26) Creatinine 0.9mg/dL (0.7-1.3) Estimated GFR (Cockcroft-Gault) 86.4 Glucose Level 102mg/dL (70-99) Calcium Level 9.0mg/dL (8.5-10.1) Urine Opiates Screen Neg (NEG) Urine Methadone Screen Neg (NEG) Urine Barbiturates Neg (NEG) Urine Phencyclidine Screen Neg (NEG) Urine Amphetamine/Methamphetamine Neg (NEG) Urine Benzodiazepines Screen Neg (NEG) Urine Cocaine Screen Neg (NEG) Urine Cannabinoids Screen Neg (NEG) Urine Ethyl Alcohol Neg (NEG) VTE Prophylaxis Ordered VTE Prophylaxis Devices: No VTE Pharmacological Prophylaxi: Yes Assessment/Plan Assessment/Plan subacute hemmoragic mass, cerebellar headache nausea metastatic lesions from esoph cancer, maybe 12 small lesions admit to ICU, decadron, neuro checks Neurosurg eval, consider to OR on tuesday consult Rad Onc and med onc, Add MS contin for pain control, DONN SAM MD Sep 13, 2016 15:15
[2016-09-13 15:39] LABS: INR 1.1 (0.8-1.1); PROTHROMBIN TIME PATIENT 13.2 SEC (11.7-14.0)
[2016-09-13] MEDS: MORPHINE ER 15 MG TABLET.ER PO SCH ×2 (16:33→20:30)
[2016-09-13] MEDS: LEVETIRACETAM 500 MG in IV NORMAL SALINE 100ML 100 ML IV SCH (16:35)
--- NOTE | 2016-09-13 17:06 | PDOC2 ---
NEUROLOGY CONSULT Date of Admission Date of Admission DATE: 09/13/16 TIME: 16:48 Reason for Consult Reason for Consult: IMPRESSION: Large right cerebellar metastatic mass with hemorrhage and mass effect and effacement of the 4th ventricle. Multiple small metastatic lesions in bilateral hemispheres. Cerebral edema. Headache ICP Vomiting Esophageal cancer s/p surgical resection about 5 months ago. Received chemo and radiation therapy before surgery. Right cerebellar tonsillar ectopia. GERD RECOMMENDATIONS/PLAN: Decadron 4 mg IV q6h. Keppra 500 mg bid. Ativan 2 mg IV if has seizure. BP control. Neurosurgery consulted. Oncology on team Brain MRI performed. Discussed with his family at bedside in ICU. HISTORY OF THE PRESENT ILLNESS: 61-y-old male patient with Hx of esophageal cancer and received presurgical chemo and radiation therapies then surgery about 5 months ago. He developed symptoms of nausea, vomiting and headaches this time and metastatic intracranial disease with large hemorrhage in right cerebellar was evidential. PAST MEDICAL HISTORY: Please see above. PAST SURGERY HISTORY: Cholecystectomy Esophagectomy ALLERGY: Reviewed. MEDICATIONS: Refer to [facility] FAMILY HISTORY: Non contributory. SOCIAL HISTORY: Denies current smoking, drinking, and illicit drug use. He smoked 2 pack of cigarettes a day for many years but quit in 1991. REVIEW OF SYSTEMS: Constitutional: Mildly malnutrition. Head: No recent traumatic brain or head injury. Skin: No edema, or rash. Ear: No infection, tinnitus. Eyes: No vision loss or color blindness. Nose: No bleeding or purulent discharges. Hearing: No hearing decrease. Neck: No injury. Cardiac: No MN, arrhythmia. Pulmonary: No COPD. GI: GERD. Urinary/genital: No dysuria, hematuria, incontinence, urinary retention. Endocrinologic: No cousin face, craniofacial dysmorphism, polydactyly, goiter. Skeletomuscular: No muscular atrophy, deformity. Neurological: see HP. Psychiatric: Denies current drug use/abuse. Otherwise, not [id number] review of systems. PHYSICAL EXAMINATION: General appearance is in acute distress. HEENT: Normocephalic and nontraumatic. Eyes, nose, ears, and throat are unremarkable. Neck is supple. No lymphadenopathy. No crepitus. Cardiovascular: S1, S2, regular rate and rhythm. Pulmonary: Clear to auscultation bilaterally. Abdomen: Bowel sounds are positive. Extremities: No rash, lesions, or edema. No restriction of range of motion NEUROLOGICAL EXAMINATION: Awake. Oriented to time, place and person. PERRL. EOMI. CN: no focal findings. Muscle tone: within normal. Muscle strength: 4+ DTR: 2 Plantar reflex: Flexor response bilaterally Gait: not examined in bed. Sensory exam: no acute abnormal findings. F-T-N test not accurate. Current Medications Current Medications Current Medications Sodium Chloride (Iv Sodium Chloride 0.9% 1000ml Bag) 1,000 ml @ 1,000 mls/hr Q1H IV Last administered on 09/13/16 11:20; Start 09/13/16 at 10:44; Stop at 11:43; Status DC Fentanyl Citrate (Fentanyl 2ml Vial) 50 mcg 1X ONCE IV Last administered on 11:20; Start 09/13/16 at 10:45; Stop 09/13/16 at 10:53; Status DC Meclizine HCl 25 mg 25 mg 1X ONCE PO Last administered on 09/13/16 11:19; Start 09/13/16 at 10:45; Stop 09/13/16 at 10:53; Status DC Nicardipine HCl/ Sodium Chloride (Cardene/Iv Sodium Chloride 0.9% 250ml) 270 ml @ 0 mls/hr CONT PRN IV SEE I/O RECORD; Start 09/13/16 at 11:15; Stop 09/13/16 at 11:22; Status DC Dexamethasone Sodium Phosphate 10 mg 10 mg 1X ONCE IV Last administered on 09/13 11:33; Start 09/13/16 at 12:00; Stop 09/13/16 at 12:01; Status DC Nicardipine HCl/ Sodium Chloride (Cardene/Iv Sodium Chloride 0.9% 250ml) 270 ml @ 0 mls/hr CONT PRN IV SEE I/O RECORD; Start 09/13/16 at 12:00 Ondansetron HCl (Zofran) 4 mg PRN Q8HRS PRN IV NAUSEA/VOMITING; Start 09/13/16 at 11:30; Stop 09/14/16 at 11:29 Fentanyl Citrate (Fentanyl 2ml Vial) 50 mcg PRN Q1HR PRN IV PAIN Last administered on 09/13/16 13:09; Start 09/13/16 at 11:30; Stop 09/14/16 at 11:29 Acetaminophen (Tylenol) 650 mg PRN Q4HRS PRN PO FEVER; Start 09/13/16 at 11:30; Stop 09/14/16 at 11:29 Dexamethasone Sodium Phosphate (Decadron) 2 mg Q6HRS IV ; Start 09/13/16 at 18:00 ; Stop 09/13/16 at 18:00; Status DC Gadobutrol (Gadavist) 7.5 mmol 1X ONCE IV Last administered on 09/13/16 12:56 ; Start 09/13/16 at 13:00; Stop 09/13/16 at 13:01; Status DC Dexamethasone Sodium Phosphate 4 mg 4 mg Q6HRS IV ; Start 09/13/16 at 18:00 Levetiracetam/ Sodium Chloride (Keppra/Iv Sodium Chloride 0.9% 100ml) 105 ml @ 400 mls/hr Q12HR IV Last administered on 09/13/16 16:35; Start 09/13/16 at 14:30 Lorazepam (Ativan) 2 mg PRN Q6HRS PRN IV ANXIETY / AGITATION; Start 09/13/16 at 14:15 Oxycodone/ Acetaminophen (Percocet 10/325) 1 tab PRN Q4HRS PRN PO pain; Start 09/13/16 at 15:00 Morphine Sulfate 15 mg 15 mg BID PO Last administered on 09/13/16 16:33; Start 09/13/16 at 15:00 Potassium Chloride/Dextrose/ Sod Cl (KCl 20 Meq In D5W-1/2 NS) 1,000 ml @ 100 mls/hr 1X ONCE IV Last administered on 09/13/16 16:33; Start 09/13/16 at 15:00 ; Stop 09/14/16 at 00:59 Allergies Allergies: Coded Allergies: No Known Drug Allergies (Unverified , 09/13/16) Vitals VITALS Vital Signs Date Time Temp Pulse Resp B/P Pulse Ox O2 Delivery O2 Flow Rate FiO2 09/13/16 16:33 16 99 Room Air 09/13/16 15:37 77 141/76 09/13/16 13:30 97.9 97.9 Labs Labs Laboratory Tests Test 09/13/16 09:40 09/13/16 13:55 White Blood Count 6.6x10^3/uL (4.0-11.0) Red Blood Count 4.77x10^6/uL (4.30-5.70) Hemoglobin 13.2g/dL (13.0-17.5) Hematocrit 40.1% (39.0-53.0) Mean Corpuscular Volume 84fL (79-100) Mean Corpuscular Hemoglobin 28pg (25-35) Mean Corpuscular Hemoglobin Concent 33g/dL (31-37) Red Cell Distribution Width 16.5% (11.5-14.5) Platelet Count 253x10^3/uL (140-400) Neutrophils (%) (Auto) 76% (31-73) Lymphocytes (%) (Auto) 12% (24-48) Monocytes (%) (Auto) 8% (0-9) Eosinophils (%) (Auto) 3% (0-3) Basophils (%) (Auto) 1% (0-3) Neutrophils # (Auto) 5.0x10^3uL (1.8-7.7) Lymphocytes # (Auto) 0.8x10^3/uL (1.0-4.8) Monocytes # (Auto) 0.5x10^3/uL (0.0-1.1) Eosinophils # (Auto) 0.2x10^3/uL (0.0-0.7) Basophils # (Auto) 0.1x10^3/uL (0.0-0.2) Prothrombin Time 13.2SEC (11.7-14.0) Prothromb Time International Ratio 1.1 (0.8-1.1) Activated Partial Thromboplast Time 27SEC (24-38) Sodium Level 141mmol/L (136-145) Potassium Level 3.5mmol/L (3.5-5.1) Chloride Level 107mmol/L (98-107) Carbon Dioxide Level 23mmol/L (21-32) Anion Gap 11 (6-14) Blood Urea Nitrogen 20mg/dL (8-26) Creatinine 0.9mg/dL (0.7-1.3) Estimated GFR (Cockcroft-Gault) 86.4 Glucose Level 102mg/dL (70-99) Calcium Level 9.0mg/dL (8.5-10.1) Urine Opiates Screen Neg (NEG) Urine Methadone Screen Neg (NEG) Urine Barbiturates Neg (NEG) Urine Phencyclidine Screen Neg (NEG) Urine Amphetamine/Methamphetamine Neg (NEG) Urine Benzodiazepines Screen Neg (NEG) Urine Cocaine Screen Neg (NEG) Urine Cannabinoids Screen Neg (NEG) Urine Ethyl Alcohol Neg (NEG) Laboratory Tests Test 09/13/16 09:40 09/13/16 13:55 White Blood Count 6.6x10^3/uL (4.0-11.0) Red Blood Count 4.77x10^6/uL (4.30-5.70) Hemoglobin 13.2g/dL (13.0-17.5) Hematocrit 40.1% (39.0-53.0) Mean Corpuscular Volume 84fL (79-100) Mean Corpuscular Hemoglobin 28pg (25-35) Mean Corpuscular Hemoglobin Concent 33g/dL (31-37) Red Cell Distribution Width 16.5% (11.5-14.5) Platelet Count 253x10^3/uL (140-400) Neutrophils (%) (Auto) 76% (31-73) Lymphocytes (%) (Auto) 12% (24-48) Monocytes (%) (Auto) 8% (0-9) Eosinophils (%) (Auto) 3% (0-3) Basophils (%) (Auto) 1% (0-3) Neutrophils # (Auto) 5.0x10^3uL (1.8-7.7) Lymphocytes # (Auto) 0.8x10^3/uL (1.0-4.8) Monocytes # (Auto) 0.5x10^3/uL (0.0-1.1) Eosinophils # (Auto) 0.2x10^3/uL (0.0-0.7) Basophils # (Auto) 0.1x10^3/uL (0.0-0.2) Prothrombin Time 13.2SEC (11.7-14.0) Prothromb Time International Ratio 1.1 (0.8-1.1) Activated Partial Thromboplast Time 27SEC (24-38) Sodium Level 141mmol/L (136-145) Potassium Level 3.5mmol/L (3.5-5.1) Chloride Level 107mmol/L (98-107) Carbon Dioxide Level 23mmol/L (21-32) Anion Gap 11 (6-14) Blood Urea Nitrogen 20mg/dL (8-26) Creatinine 0.9mg/dL (0.7-1.3) Estimated GFR (Cockcroft-Gault) 86.4 Glucose Level 102mg/dL (70-99) Calcium Level 9.0mg/dL (8.5-10.1) Urine Opiates Screen Neg (NEG) Urine Methadone Screen Neg (NEG) Urine Barbiturates Neg (NEG) Urine Phencyclidine Screen Neg (NEG) Urine Amphetamine/Methamphetamine Neg (NEG) Urine Benzodiazepines Screen Neg (NEG) Urine Cocaine Screen Neg (NEG) Urine Cannabinoids Screen Neg (NEG) Urine Ethyl Alcohol Neg (NEG) BOYD SURESH MD Sep 13, 2016 17:06
[2016-09-13] MEDS: DEXAMETHASONE SOD PHOS 4 MG/ML VIAL IV SCH (17:56)
[2016-09-13] MEDS ORDERED: DEXAMETHASONE SOD PHOS 4 MG/ML VIAL IV SCH (18:00)
[2016-09-13] MEDS: OXYCODONE/APAP 10/325 TABLET. PO PRN (21:28)
[2016-09-14] VITALS (23 sets, daily range): BP systolic 92–130; BP diastolic 62–80
[2016-09-14] MEDS: OXYCODONE/APAP 10/325 TABLET. PO PRN ×3 (02:23→20:01)
[2016-09-14] MEDS: FENTANYL PF 100 MCG/2 ML VIAL. IV PRN ×6 (04:47→23:31)
[2016-09-14] MEDS: DEXAMETHASONE SOD PHOS 4 MG/ML VIAL IV SCH ×5 (05:57→23:31)
[2016-09-14] MEDS ORDERED: IOHEXOL 300 MG/ML 75 ML VIAL IV ONE (08:00)
[2016-09-14] MEDS ORDERED: CONTRAST GIVEN MC PRN (08:00)
[2016-09-14] MEDS: LEVETIRACETAM 500 MG in IV NORMAL SALINE 100ML 100 ML IV SCH ×4 (08:15→21:13)
[2016-09-14] MEDS: MORPHINE ER 15 MG TABLET.ER PO SCH ×2 (08:16→21:14)
--- NOTE | 2016-09-14 09:02 | CONS ---
DATE OF CONSULTATION: 09/13/2016 REASON FOR CONSULTATION: Cerebellar mass with cerebellar hemorrhage. HISTORY OF PRESENT ILLNESS: The patient is a pleasant, 61-year-old gentleman, who presented to the Emergency Department with worsening headache, nausea, and vomiting. He explains that approximately 4 weeks ago, he was vacationing in [place] when he had sudden onset of a right-sided suboccipital headache. This has persisted intermittently since that time over the last 4 weeks. He explains that the headaches occur nearly everyday without a clear inciting event and spontaneously resolve without a clear alleviating event. He reports that the headaches are associated with nausea. He denies photophobia or phonophobia. He reports that he has had a couple of episodes of emesis associated with these headaches. When in [place], he saw a physician and reports that he was treated with medication for migraine and nausea. Just yesterday, he returned from [place] and after his flight he reports that his headache had increased and he had increased nausea and vomiting and sought medical attention. Imaging was obtained in the Emergency Department here showing right cerebellar hyperdensity consistent with potential hemorrhage. An MRI was subsequently obtained showing this hemorrhage with adjacent enhancing mass, also with multiple diffuse enhancing masses throughout the bilateral hemispheres of the cerebrum and the cerebellum, consistent with potential metastatic disease. Of note, he has had a recent history of esophageal cancer. He was treated in [place], [place], where he lives for this. He had partial resection of the esophagus and stomach with associated chemotherapy and radiation. He explains that his treatments finished approximately 4 months ago. This cancer was diagnosed after he had been losing weight and developing some mild GI symptoms approximately one year prior. He explains that his most recent systemic imaging was in July 2016 and was reportedly clear of any systemic disease. He denies having any problems or symptoms prior to the onset of headache and nausea 4 weeks ago. PAST MEDICAL HISTORY: Includes the aforementioned esophageal cancer and treatments. There is a history of chronic renal insufficiency. He has gastroesophageal reflux disease. PAST SURGICAL HISTORY: He reports the aforementioned esophageal and stomach resection. He also reports history of a cholecystectomy and a hernia repair. MEDICATIONS: He reports that he had been taking some Percocet which he had from his prior surgery. He also reports taking some Excedrin and ibuprofen. ALLERGIES: He reports no known drug allergies. SOCIAL HISTORY: He has 4 children and 7 grandchildren. He reports approximately 15 to 20-year smoking history in the past. He has quit smoking since the early . He denies any current use of tobacco, alcohol, or illicit drugs. REVIEW OF SYSTEMS: A 10-point review of systems is negative except for the aforementioned with the exception of some mild ataxia with gait since the onset of his headache approximately 4 weeks ago. He denies any falls. PHYSICAL EXAMINATION: VITAL SIGNS: His blood pressure is 142/80, his pulse is 80, respirations 20, O2 sat is 96% on room air. GENERAL: He is awake, alert, and oriented x 4. He does not appear to be in acute distress. He is pleasant and cooperative. HEAD: Normocephalic without evidence of trauma. NECK: Supple and nontender. CARDIOVASCULAR: His pulse is regular. LUNGS: His respirations are even and nonlabored. ABDOMEN: Soft and nontender. EXTREMITIES: He has no cyanosis, clubbing, or edema in the extremities. SKIN: Warm and dry. NEUROLOGICAL: Cranial nerves 2-12 are individually tested and intact bilaterally. Strength is 5/5 in all major muscle groups in his bilateral upper and bilateral lower extremities. There is no pronator drift appreciated. Deep tendon reflexes are symmetrical. Sensation is intact to light touch. With cerebellar testing, his [id number] maneuver is accurate bilaterally; however, he is able to perform the maneuver much more quickly on the left side relative to the right. Similarly, his thyu-xs-[id number] coordination is accurate bilaterally, but much quicker and somewhat more precise on the left relative to the right. RADIOLOGY: As mentioned above, he had a noncontrast CT scan of the head showing approximately 4-cm hyperdensity in the right cerebellum. There is some prominence of the lateral ventricles. There is an MRI of the brain which was performed with and without contrast, showing the approximately 4 x 3-cm mass lesion in the right cerebellum that enhances. There is some mild adjacent edema identified and multiple smaller foci of intraaxial enhancements identified in the bilateral hemispheres in the cerebrum as well as a small lesion in the contralateral cerebellum. This appears to be consistent with probable metastatic disease. ASSESSMENT AND PLAN: This is a 61-year-old gentleman with reported history of recent esophageal cancer, who presents with a hemorrhagic right cerebellar mass with multiple enhancing foci located diffusely throughout the brain, which appears to be consistent with metastatic disease, who appears to be neurologically stable at this time. He was admitted to the ICU where frequent neuro checks will be instituted. With regard to his systemic evaluation, he will receive a CT of the chest, abdomen and pelvis with contrast. He has been started on Decadron for the adjacent edema. He is on Cardene for hypertension which is recommended to be maintained less than 140. Coagulation labs will be obtained. Potential treatments were discussed with the patient and family. Based on his symptoms and the radiographic findings, it was felt that evacuation of this lesion to alleviate compression within the posterior fossa be performed. He will be maintained on steroids for the adjacent edema to maximize safety of the surgery as long as he remains neurologically stable. We will request medical clearance for posterior fossa craniectomy and the Radiation and Medical Oncology services will be consulted as well. Pending these things and pending his workup and given his present stable neurological status, surgery is tentatively planned for the morning of 09/15/2016. The surgery including potential risks, benefits, and expectations were discussed with the patient and family and the possibility of placement of an external ventricular drain ____ was discussed as well should it be needed. We will continue to follow closely and provide any additional recommendations as appropriate. BHARTI VALADEZ MD DR: PAULINE/nancy JOB#: [id number] / [id number]
--- NOTE | 2016-09-14 10:26 | CONS ---
DATE OF CONSULTATION: 09/13/2016 REFERRING PHYSICIANS: Dr. Bry Moreno. Jackie Bailon MD. DIAGNOSIS: A 61-year-old gentleman with prior preoperative radiation and chemotherapy followed by surgical resection for carcinoma of the esophagus with surgery completed in [place], [place] in 04/2016. He now has a 4-week history of headaches, dizziness and ataxia. CT followed by MRI imaging here reveal hemorrhagic 4.7 cm mass in the right cerebellum with enhancing lesions elsewhere in the brain consistent with metastatic disease. He is now scheduled to undergo cerebellar resection which is necessary due to fourth ventricular compromise. We were asked to see him regarding the role of palliative radiation therapy in his care. HISTORY OF PRESENT ILLNESS: The patient is a 61-year-old gentleman who one year ago following a 4-week vacation was noted to have significant weight loss. He ultimately was found to have a primary carcinoma of the esophagus. He underwent preoperative radiation and chemotherapy in [place], [place] in February through March 2016 under the care of Dr. Sheri Mak and Dr. Douglas Aragon. He then underwent surgical resection there and did well following surgery in 04/2016. Details of his prior history are not available. This history was provided to me by patient and . He recently returned from a vacation in [facility] and just flew back from his [place]. During this time, he has had a 4-week history of headaches worse in the right cerebellar region, 6-7 on a 10 scale of pain associated with dizziness and wobbly gait with no falls or seizures or other focal neurologic deficits. He has had some nausea with no vomiting. He has had stable weight with normal swallowing. As a result of his symptoms while staying with his brother nearby in [place], [place] he was brought to the Emergency Room. CT scan without contrast revealed a 4.5-cm right cerebellar hemorrhage with mass effect , midline shift and compromise of the fourth ventricle. MRI scan following this revealed 4.7 cm hemorrhagic mass in the right cerebellar hemisphere causing mass affect and significant compromise of the fourth ventricle associated with mild hydrocephalus. There were at least 10 other scattered small enhancing masses in both cerebral and the contralateral left cerebellar hemispheres, all consistent with metastatic disease. He has now been evaluated by Dr. Bry Moreno here in neurosurgery and he will undergo a right cerebellar surgical resection on 09/15/2016. PAST MEDICAL HISTORY: Remarkable for cholecystectomy,esophageal cancer as summarized above. FAMILY HISTORY: Grandmother had some form of malignancy. ALLERGIES: No known allergies. MEDICATIONS: See hospital list. SOCIAL HISTORY: for 27 years, 4 children, 7 grandchildren. No alcohol use. 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 PHYSICAL EXAMINATION: GENERAL: Revealed a pleasant, articulate gentleman, in no acute distress, conversant and appropriate during the examination. HEENT: Unremarkable. He had no scleral icterus. He had good dentition. LYMPH NODES: He had no palpable cervical or supraclavicular adenopathy. CHEST: Clear. HEART: Regular. ABDOMEN: Revealed no hepatomegaly, mass or tenderness. EXTREMITIES: Revealed no clubbing, cyanosis or edema. NEUROLOGIC: Cranial nerves 2-12 are intact. Strength, reflexes and sensation intact in all extremities. Ojgzek-lh-kxnq exam was slow on the right side, normal on the left. Gait was not tested. MRI and CT scans were summarized above. LABORATORY STUDIES: Hemoglobin 13.2, white count 6600, platelet count 253,000. Chemistry panel revealed normal electrolytes, creatinine 0.9, calcium 9.0. ASSESSMENT AND PLAN: In summary, my impression is that of primary carcinoma of the esophagus. He underwent preoperative radiation and chemotherapy followed by surgical resection in 04/2016. He now has multiple intracranial metastatic lesions seen on MRI. He has a hemorrhagic metastasis in the right cerebellum causing significant mass effect and compromise of the fourth ventricle, also symptomatic for headache, dizziness and ataxia. At this time, surgical resection of the dominant hemorrhagic metastasis is in order in an effort to stabilize and improve his neurologic status. Following this, he would be a candidate best treated with postoperative whole brain radiation therapy. He prefers to have postoperative treatment in [place], [place], which I think is reasonable. This would occur 2-4 weeks following surgery. In addition, it would be valuable to proceed with restaging evaluation with visceral imaging of CT scan of the chest, abdomen and pelvis and this could be done here or in [place], [place] following discharge. I discussed the treatable, but likely incurable situation at hand with the patient and his . I outlined the need for surgical resection and the value of postoperative radiation. We will continue to follow him during this hospitalization. Thank you for allowing us to participate in his evaluation. SID SANTANA MD DR: EDILMA/nancy JOB#: [id number] / [id number] Douglas Newton MD, Claudia MD Poore, Justin DO MTDD
--- NOTE | 2016-09-14 10:58 | PDOC ---
PROGRESS NOTES Chief Complaint Chief Complaint CC: HEADACHES A/P Recent esophageal cancer, who presents with a hemorrhagic right cerebellar mass , suspected malignant lesions Headaches, Nausea IV Decadron BP controlled, off nicardipine gtt, goals sbp < 140 Possibility of placement of an external ventricular drain in AM , Neuro surgery following IV Keppra IV Zofran PRN cbc/bmp in AM CT Chest/ abdomen, pelvis pending pain control with iv morphine Neuro checks per protocol ICU stay d/w family at bedside, son and at bedside, History of Present Illness History of Present Illness headaches better no seizures no fever no chills. Vitals Vitals Vital Signs Date Time Temp Pulse Resp B/P Pulse Ox O2 Delivery O2 Flow Rate FiO2 09/14/16 10:50 62 18 116/64 94 Room Air 09/14/16 07:49 97.9 97.9 09/13/16 20:00 16.0 Physical Exam General: Alert, Oriented X3, Cooperative, mild distress Heart: Normal S1, Normal S2 Lungs: Clear Abdomen: Normal bowel sounds, Soft Extremities: No clubbing, No cyanosis, No edema Labs LABS Laboratory Tests Test 09/13/16 13:55 Urine Opiates Screen Neg (NEG) Urine Methadone Screen Neg (NEG) Urine Barbiturates Neg (NEG) Urine Phencyclidine Screen Neg (NEG) Urine Amphetamine/Methamphetamine Neg (NEG) Urine Benzodiazepines Screen Neg (NEG) Urine Cocaine Screen Neg (NEG) Urine Cannabinoids Screen Neg (NEG) Urine Ethyl Alcohol Neg (NEG) Assessment and Plan Assessmemt and Plan Problems Medical Problems: (1) Intracranial hemorrhage Status: Acute Problems: Comment Review of Relevant I have reviewed the following items samara (where applicable) has been applied. Labs Laboratory Tests Test 09/13/16 09:40 09/13/16 13:55 White Blood Count 6.6x10^3/uL (4.0-11.0) Red Blood Count 4.77x10^6/uL (4.30-5.70) Hemoglobin 13.2g/dL (13.0-17.5) Hematocrit 40.1% (39.0-53.0) Mean Corpuscular Volume 84fL (79-100) Mean Corpuscular Hemoglobin 28pg (25-35) Mean Corpuscular Hemoglobin Concent 33g/dL (31-37) Red Cell Distribution Width 16.5% (11.5-14.5) Platelet Count 253x10^3/uL (140-400) Neutrophils (%) (Auto) 76% (31-73) Lymphocytes (%) (Auto) 12% (24-48) Monocytes (%) (Auto) 8% (0-9) Eosinophils (%) (Auto) 3% (0-3) Basophils (%) (Auto) 1% (0-3) Neutrophils # (Auto) 5.0x10^3uL (1.8-7.7) Lymphocytes # (Auto) 0.8x10^3/uL (1.0-4.8) Monocytes # (Auto) 0.5x10^3/uL (0.0-1.1) Eosinophils # (Auto) 0.2x10^3/uL (0.0-0.7) Basophils # (Auto) 0.1x10^3/uL (0.0-0.2) Prothrombin Time 13.2SEC (11.7-14.0) Prothromb Time International Ratio 1.1 (0.8-1.1) Activated Partial Thromboplast Time 27SEC (24-38) Sodium Level 141mmol/L (136-145) Potassium Level 3.5mmol/L (3.5-5.1) Chloride Level 107mmol/L (98-107) Carbon Dioxide Level 23mmol/L (21-32) Anion Gap 11 (6-14) Blood Urea Nitrogen 20mg/dL (8-26) Creatinine 0.9mg/dL (0.7-1.3) Estimated GFR (Cockcroft-Gault) 86.4 Glucose Level 102mg/dL (70-99) Calcium Level 9.0mg/dL (8.5-10.1) Urine Opiates Screen Neg (NEG) Urine Methadone Screen Neg (NEG) Urine Barbiturates Neg (NEG) Urine Phencyclidine Screen Neg (NEG) Urine Amphetamine/Methamphetamine Neg (NEG) Urine Benzodiazepines Screen Neg (NEG) Urine Cocaine Screen Neg (NEG) Urine Cannabinoids Screen Neg (NEG) Urine Ethyl Alcohol Neg (NEG) Laboratory Tests Test 09/13/16 13:55 Urine Opiates Screen Neg (NEG) Urine Methadone Screen Neg (NEG) Urine Barbiturates Neg (NEG) Urine Phencyclidine Screen Neg (NEG) Urine Amphetamine/Methamphetamine Neg (NEG) Urine Benzodiazepines Screen Neg (NEG) Urine Cocaine Screen Neg (NEG) Urine Cannabinoids Screen Neg (NEG) Urine Ethyl Alcohol Neg (NEG) Medications Current Medications Sodium Chloride (Iv Sodium Chloride 0.9% 1000ml Bag) 1,000 ml @ 1,000 mls/hr Q1H IV Last administered on 09/13/16 11:20; Start 09/13/16 at 10:44; Stop at 11:43; Status DC Fentanyl Citrate (Fentanyl 2ml Vial) 50 mcg 1X ONCE IV Last administered on 11:20; Start 09/13/16 at 10:45; Stop 09/13/16 at 10:53; Status DC Meclizine HCl 25 mg 25 mg 1X ONCE PO Last administered on 09/13/16 11:19; Start 09/13/16 at 10:45; Stop 09/13/16 at 10:53; Status DC Nicardipine HCl/ Sodium Chloride (Cardene/Iv Sodium Chloride 0.9% 250ml) 270 ml @ 0 mls/hr CONT PRN IV SEE I/O RECORD; Start 09/13/16 at 11:15; Stop 09/13/16 at 11:22; Status DC Dexamethasone Sodium Phosphate 10 mg 10 mg 1X ONCE IV Last administered on 09/13 11:33; Start 09/13/16 at 12:00; Stop 09/13/16 at 12:01; Status DC Nicardipine HCl/ Sodium Chloride (Cardene/Iv Sodium Chloride 0.9% 250ml) 270 ml @ 0 mls/hr CONT PRN IV SEE I/O RECORD Last administered on 09/13/16 22:20; Start 09/13/16 at 12:00 Ondansetron HCl (Zofran) 4 mg PRN Q8HRS PRN IV NAUSEA/VOMITING Last administered on 09/14/16 08:31; Start 09/13/16 at 11:30; Stop 09/14/16 at 11:29 Fentanyl Citrate (Fentanyl 2ml Vial) 50 mcg PRN Q1HR PRN IV PAIN Last administered on 09/14/16 08:16; Start 09/13/16 at 11:30; Stop 09/14/16 at 11:29 Acetaminophen (Tylenol) 650 mg PRN Q4HRS PRN PO FEVER; Start 09/13/16 at 11:30; Stop 09/14/16 at 11:29 Dexamethasone Sodium Phosphate (Decadron) 2 mg Q6HRS IV ; Start 09/13/16 at 18:00 ; Stop 09/13/16 at 18:00; Status DC Gadobutrol (Gadavist) 7.5 mmol 1X ONCE IV Last administered on 09/13/16 12:56 ; Start 09/13/16 at 13:00; Stop 09/13/16 at 13:01; Status DC Dexamethasone Sodium Phosphate 4 mg 4 mg Q6HRS IV Last administered on 05:57; Start 09/13/16 at 18:00 Levetiracetam/ Sodium Chloride (Keppra/Iv Sodium Chloride 0.9% 100ml) 105 ml @ 400 mls/hr Q12HR IV Last administered on 09/14/16 08:15; Start 09/13/16 at 14:30 Lorazepam (Ativan) 2 mg PRN Q6HRS PRN IV ANXIETY / AGITATION; Start 09/13/16 at 14:15 Oxycodone/ Acetaminophen (Percocet 10/325) 1 tab PRN Q4HRS PRN PO pain Last administered on 09/14/16 10:06; Start 09/13/16 at 15:00 Morphine Sulfate 15 mg 15 mg BID PO Last administered on 09/14/16 08:16; Start 09/13/16 at 15:00 Potassium Chloride/Dextrose/ Sod Cl (KCl 20 Meq In D5W-1/2 NS) 1,000 ml @ 100 mls/hr 1X ONCE IV Last administered on 09/13/16 16:33; Start 09/13/16 at 15:00 ; Stop 09/14/16 at 00:59; Status DC Iohexol (Omnipaque 300 Mg/ml) 75 ml 1X ONCE IV Last administered on 09/14/16 08:40; Start 09/14/16 at 08:00; Stop 09/14/16 at 08:01; Status DC Info (Do NOT chart on this entry -- for MONITORING) 1 each PRN DAILY PRN MC SEE COMMENTS; Start 09/14/16 at 08:00; Stop 09/16/16 at 07:59 Ondansetron HCl (Zofran) 4 mg PRN Q6HRS PRN IV Nausea; Start 09/15/16 at 07:00; Stop 09/16/16 at 06:59 Fentanyl Citrate (Fentanyl 2ml Vial) 25 mcg PRN Q5MIN PRN IV MILD PAIN; Start 09/15/16 at 07:00; Stop 09/16/16 at 06:59 Fentanyl Citrate (Fentanyl 2ml Vial) 50 mcg PRN Q5MIN PRN IV MODERATE PAIN; Start 09/15/16 at 07:00; Stop 09/16/16 at 06:59 Morphine Sulfate 1 mg 1 mg PRN Q10MIN PRN IV SEVERE PAIN; Start 09/15/16 at 07: 00; Stop 09/16/16 at 06:59 Lactated Ringer's (Iv Lactated Ringers) 1,000 ml @ 0 mls/hr Q0M IV ; Start 09/15 at 07:00; Stop 09/15/16 at 18:59 Lidocaine HCl 2 ml 1X PRN PRN ID IV START; Start 09/15/16 at 07:00; Stop at 06:59 Hydromorphone HCl (Dilaudid) 0.5 mg PRN Q10MIN PRN IV SEVERE PAIN, Second choice; Start 09/15/16 at 07:00; Stop 09/16/16 at 06:59 Prochlorperazine Edisylate (Compazine) 5 mg PACU PRN PRN IV NAUSEA; Start at 07:00; Stop 09/16/16 at 06:59 Vitals/I & O Vital Sign - Last 24 Hours 09/13/16 09/13/16 09/13/16 09/13/16 11:15 11:20 11:45 12:06 Pulse 60 62 70 Resp 18 20 20 20 B/P 175/88 161/83 152/79 Pulse Ox 96 97 97 97 O2 Delivery Room Air Room Air Room Air Room Air 09/13/16 09/13/16 09/13/16 09/13/16 13:06 13:09 13:30 13:45 Temp 97.9 97.9 Pulse 72 68 70 Resp 20 18 20 22 B/P 170/79 160/89 151/82 Pulse Ox 97 96 96 96 O2 Delivery Room Air Room Air Room Air Room Air 09/13/16 09/13/16 09/13/1617 14:00 14:15 14:30 14:45 Pulse 76 80 80 82 Resp 18 20 22 18 B/P 152/87 155/84 143/80 152/89 Pulse Ox 96 96 96 96 O2 Delivery Room Air Room Air Room Air Room Air 09/13/16 09/13/16 09/13/16 09/13/16 15:00 15:15 15:18 15:37 Pulse 80 72 77 Resp 20 20 20 B/P 142/80 140/79 141/76 Pulse Ox 96 95 97 O2 Delivery Room Air Room Air Room Air Room Air 09/13/16 09/13/16 09/13/16 09/13/16 16:33 17:00 17:51 18:00 Temp 97.9 97.9 Pulse 80 79 Resp 16 16 14 19 B/P 127/79 129/76 Pulse Ox 99 99 99 94 O2 Delivery Room Air Room Air Room Air Room Air 09/13/16 09/13/16 09/13/16 09/13/16 19:00 20:00 20:00 20:00 Temp 98.0 98.0 Pulse 77 94 78 Resp 16 18 16 B/P 135/74 116/73 129/73 Pulse Ox 95 96 95 O2 Delivery Room Air Room Air Room Air Room Air O2 Flow Rate 16.0 09/13/16 09/13/16 09/13/16 09/13/16 20:30 21:00 21:22 21:28 Pulse 94 Resp 16 18 16 B/P 116/73 Pulse Ox 95 96 94 O2 Delivery Room Air Room Air Room Air Room Air 09/13/16 09/13/16 09/13/16 09/14/16 22:00 23:00 23:59 00:00 Temp 97.9 97.9 Pulse 80 78 64 Resp 16 14 18 15 B/P 110/69 97/65 100/66 Pulse Ox 94 94 95 94 O2 Delivery Room Air Room Air Room Air Room Air 09/14/16 09/14/16 09/14/16 09/14/16 00:00 00:30 01:00 02:00 Pulse 61 60 Resp 12 12 14 B/P 103/66 105/67 Pulse Ox 95 94 O2 Delivery Room Air Room Air Room Air Room Air 09/14/16 09/14/16 09/14/16 09/14/16 02:23 03:00 03:30 04:00 Temp 97.8 97.8 Pulse 60 58 Resp 12 15 12 16 B/P 105/70 109/68 Pulse Ox 95 95 95 95 O2 Delivery Room Air Room Air Room Air Room Air 09/14/16 09/14/16 09/14/16 09/14/16 04:00 04:47 05:00 06:00 Pulse 62 67 Resp 15 16 16 B/P 121/77 112/72 Pulse Ox 95 96 95 O2 Delivery Room Air Room Air Room Air Room Air 09/14/16 09/14/16 09/14/16 09/14/16 06:58 07:22 07:49 08:16 Temp 97.9 97.9 Pulse 60 63 Resp 16 18 16 B/P 112/74 115/74 Pulse Ox 95 95 95 O2 Delivery Room Air Room Air Room Air Room Air 09/14/16 09/14/16 09/14/16 09/14/16 08:16 08:45 09:00 10:00 Pulse 64 66 Resp 16 12 16 16 B/P 125/73 117/73 Pulse Ox 95 95 95 97 O2 Delivery Room Air Room Air Room Air Room Air 09/14/16 09/14/16 10:06 10:50 Pulse 62 Resp 16 18 B/P 116/64 Pulse Ox 95 94 O2 Delivery Room Air Room Air Intake and Output 09/13/16 09/13/16 09/14/16 15:00 23:00 07:00 Intake Total 1000 ml 410 ml 1719 ml Output Total 1250 ml 1500 ml Balance 1000 ml -840 ml 219 ml MARIOLA WASHINGTON MD Sep 14, 2016 10:58
--- NOTE | 2016-09-14 11:00 | PDOC ---
Provider Note Provider Note Onc consult dictated- [id number] H/o locally advanced esophageal cancer s/p neoadjuvant chemoradiation followed by esophagectomy in [place], [place], primary oncologist is Dr. Douglas Aragon. [employer] masses concerned for malignancy- Resection of predominant right cerebellar mass planned tomorrow. Plan: Continue steroids F/u CT C/A/P I have requested onc records Will f/u path from resxn tomorrow. He will return home for tx with ERIC Lubin DO Sep 14, 2016 11:00
--- NOTE | 2016-09-14 12:03 | PDOC ---
SUBJECTIVE Subjective Denies acute changes. Just received ativan for anxiety. Sleeping but easily arouses to voice. ROS: denies visual changes, focal weakness, paresthesias OBJECTIVE Vital Signs Vital Signs Date Time Temp Pulse Resp B/P Pulse Ox O2 Delivery O2 Flow Rate FiO2 09/14/16 12:00 Room Air 09/14/16 12:00 97.7 89 16 103/64 94 Room Air 97.7 09/14/16 11:05 16 94 Room Air 09/14/16 10:50 62 18 116/64 94 Room Air 09/14/16 10:06 16 95 Room Air 09/14/16 10:00 66 16 117/73 97 Room Air 09/14/16 09:00 64 16 125/73 95 Room Air 09/14/16 08:45 12 95 Room Air 09/14/16 08:16 16 95 Room Air 09/14/16 08:16 16 95 Room Air 09/14/16 07:49 97.9 63 18 115/74 95 Room Air 97.9 09/14/16 07:22 Room Air 09/14/16 06:58 60 16 112/74 95 Room Air 09/14/16 06:00 67 16 112/72 95 Room Air 09/14/16 05:00 62 16 121/77 96 Room Air 09/14/16 04:47 15 95 Room Air 09/14/16 04:00 Room Air 09/14/16 04:00 97.8 58 16 109/68 95 Room Air 97.8 09/14/16 03:00 60 15 105/70 95 Room Air 09/14/16 02:23 12 95 Room Air 09/14/16 02:00 60 14 105/67 94 Room Air 09/14/16 01:00 61 12 103/66 95 Room Air 09/14/16 00:30 12 Room Air 09/14/16 00:00 Room Air 09/14/16 00:00 15 94 Room Air 09/13/16 23:59 97.9 64 18 100/66 95 Room Air 97.9 09/13/16 23:00 78 14 97/65 94 Room Air 09/13/16 22:00 80 16 110/69 94 Room Air 09/13/16 21:28 16 94 Room Air 09/13/16 21:22 Room Air 09/13/16 21:00 94 18 116/73 96 Room Air 09/13/16 20:30 16 95 Room Air 09/13/16 20:00 Room Air 09/13/16 20:00 98.0 78 16 129/73 95 Room Air 16.0 98.0 09/13/16 20:00 94 18 116/73 96 Room Air 09/13/16 19:00 77 16 135/74 95 Room Air 09/13/16 18:00 79 19 129/76 94 Room Air 09/13/16 17:51 14 99 Room Air 09/13/16 17:00 97.9 80 16 127/79 99 Room Air 97.9 09/13/16 16:33 16 99 Room Air 09/13/16 15:37 77 20 141/76 97 Room Air 09/13/16 15:18 Room Air 09/13/16 15:15 72 20 140/79 95 Room Air 09/13/16 15:00 80 20 142/80 96 Room Air 09/13/16 14:45 82 18 152/89 96 Room Air 09/13/16 14:30 80 22 143/80 96 Room Air 09/13/16 14:15 80 20 155/84 96 Room Air 09/13/16 14:00 76 18 152/87 96 Room Air 09/13/16 13:45 70 22 151/82 96 Room Air 09/13/16 13:30 97.9 68 20 160/89 96 Room Air 97.9 09/13/16 13:09 18 96 Room Air 09/13/16 13:06 72 20 170/79 97 Room Air 09/13/16 12:06 70 20 152/79 97 Room Air I & O Intake and Output 09/14/16 07:00 Intake Total 3129 ml Output Total 2750 ml Balance 379 ml Intake Oral 510 ml IV Total 2619 ml Output Urine Total 2750 ml PHYSICAL EXAM Physical Exam AAOx4, NAD, PERRL, EOMI, RAMESH 5/5, sensation intact LT ASSESSMENT/PLAN Assessment/Plan 61M with intracranial masses with prominent right cerebellar hemorrhagic mass. -suboccipital craniectomy for resection planned in AM -appears neurologically stable -plans to receive post-surgical adjunctive treatments with his prior oncologist in [place] -surgery again discussed in detail with explanation of potential risks, benefits , and expectations -elects to proceed, all questions answered, all in agreement Problems: COMMENT Lab Laboratory Tests Test 09/13/16 13:55 Urine Opiates Screen Neg (NEG) Urine Methadone Screen Neg (NEG) Urine Barbiturates Neg (NEG) Urine Phencyclidine Screen Neg (NEG) Urine Amphetamine/Methamphetamine Neg (NEG) Urine Benzodiazepines Screen Neg (NEG) Urine Cocaine Screen Neg (NEG) Urine Cannabinoids Screen Neg (NEG) Urine Ethyl Alcohol Neg (NEG) BHARTI VALADEZ MD Sep 14, 2016 12:03
--- NOTE | 2016-09-14 14:01 | RAD ---
Indication [employer] findings compatible with metastatic disease. Axial images of the chest abdomen and pelvis were obtained. IV contrast, 75 cc of Omnipaque 300, was administered. No prior CT imaging of the chest, abdomen or pelvis is available. History of esophageal malignancy is noted. CT chest: Findings The thoracic aorta appears unremarkable. There is some coronary artery calcification. Changes compatible with a gastric pull-up are noted. Significant hilar or mediastinal adenopathy is not seen. There are underlying emphysematous changes. Acute finding in the chest is not seen. A dominant soft tissue mass is not apparent CT abdomen and pelvis: Findings. The liver and spleen appear unremarkable. Clips are seen in the gallbladder fossa. No pancreatic mass is seen. No adrenal or significant renal finding is seen. There is a small right renal cyst. There is a small infrarenal abdominal aortic aneurysm measuring 3 cm in greatest dimension. Significant central or retroperitoneal adenopathy in the abdomen is not seen. Mass inflammatory process or acute finding in the elbows is not seen. Definite evidence of primary or metastatic disease in the abdomen or pelvis is not seen. The prostate is enlarged. There is moderate distention of the urinary bladder IMPRESSION: No acute finding seen in the chest, abdomen or pelvis. Status post gastric pull-up. Underlying emphysematous changes. No definite evidence of primary or metastatic disease. Small abdominal aortic aneurysm Enlarged prostate with an associated distended urinary bladder PQRS Compliance Statement: One or more of the following individualized dose reduction techniques were utilized for this examination: 1. Automated exposure control 2. Adjustment of the mA and/or kV according to patient size 3. Use of iterative reconstruction technique
--- NOTE | 2016-09-14 14:24 | PDOC ---
PROGRESS NOTES Assessment Assessment Large right most likely cerebellar metastatic mass with hemorrhage and mass effect and effacement of the 4th ventricle. Multiple small metastatic lesions in bilateral hemispheres. Cerebral edema. Headache ICP Vomiting Esophageal cancer s/p surgical resection about 5 months ago. Received chemo and radiation therapy before surgery. Right cerebellar tonsillar ectopia. GERD RECOMMENDATIONS/PLAN: Decadron 4 mg IV q6h. Keppra 500 mg bid. Ativan 2 mg IV if has seizure. BP control. Neurosurgery consulted. Surgery planned. Oncology on team Discussed with his family at bedside in ICU on 09/13/16. HISTORY OF THE PRESENT ILLNESS: 61-y-old male patient with Hx of esophageal cancer and received presurgical chemo and radiation therapies then surgery about 5 months ago. He developed symptoms of nausea, vomiting and headaches this time and metastatic intracranial disease with large hemorrhage in right cerebellar was evidential. PAST MEDICAL HISTORY: Please see above. PAST SURGERY HISTORY: Cholecystectomy Esophagectomy ALLERGY: Reviewed. MEDICATIONS: Refer to [facility] FAMILY HISTORY: Non contributory. SOCIAL HISTORY: Denies current smoking, drinking, and illicit drug use. He smoked 2 pack of cigarettes a day for many years but quit in 1991. REVIEW OF SYSTEMS: Constitutional: Mildly malnutrition. Head: No recent traumatic brain or head injury. Skin: No edema, or rash. Ear: No infection, tinnitus. Eyes: No vision loss or color blindness. Nose: No bleeding or purulent discharges. Hearing: No hearing decrease. Neck: No injury. Cardiac: No RI, arrhythmia. Pulmonary: No COPD. GI: GERD. Urinary/genital: No dysuria, hematuria, incontinence, urinary retention. Endocrinologic: No cousin face, craniofacial dysmorphism, polydactyly, goiter. Skeletomuscular: No muscular atrophy, deformity. Neurological: see HP. Psychiatric: Denies current drug use/abuse. Otherwise, not [id number] review of systems. PHYSICAL EXAMINATION: General appearance is in acute distress. HEENT: Normocephalic and nontraumatic. Eyes, nose, ears, and throat are unremarkable. Neck is supple. No lymphadenopathy. No crepitus. Cardiovascular: S1, S2, regular rate and rhythm. Pulmonary: Clear to auscultation bilaterally. Abdomen: Bowel sounds are positive. Extremities: No rash, lesions, or edema. No restriction of range of motion NEUROLOGICAL EXAMINATION: Sleepiness but arousable. Oriented to time, place and person on 09/13. PERRL. EOMI. CN: no focal findings. Muscle tone: within normal. Muscle strength: 4+ DTR: 2 Plantar reflex: Flexor response bilaterally Gait: not examined in bed. Sensory exam: no acute abnormal findings. F-T-N test not accurate. Objective Objective Vital Signs Date Time Temp Pulse Resp B/P Pulse Ox O2 Delivery O2 Flow Rate FiO2 09/14/16 13:00 76 18 92/62 94 Room Air 09/14/16 12:00 97.7 97.7 09/13/16 20:00 16.0 Intake and Output 09/14/16 07:00 Intake Total 3129 ml Output Total 2750 ml Balance 379 ml Intake Oral 510 ml IV Total 2619 ml Output Urine Total 2750 ml Vitals Signs Vitals VS - Last 72 Hours, by Label Date Time Temp Pulse Resp B/P Pulse Ox O2 Delivery O2 Flow Rate FiO2 09/14/16 13:00 76 18 92/62 94 Room Air 09/14/16 12:15 14 94 Room Air 09/14/16 12:00 Room Air 09/14/16 12:00 97.7 89 16 103/64 94 Room Air 97.7 09/14/16 11:05 16 94 Room Air 09/14/16 10:50 62 18 116/64 94 Room Air 09/14/16 10:06 16 95 Room Air 09/14/16 10:00 66 16 117/73 97 Room Air 09/14/16 09:00 64 16 125/73 95 Room Air 09/14/16 08:45 12 95 Room Air 09/14/16 08:16 16 95 Room Air 09/14/16 08:16 16 95 Room Air 09/14/16 07:49 97.9 63 18 115/74 95 Room Air 97.9 09/14/16 07:22 Room Air 09/14/16 06:58 60 16 112/74 95 Room Air 09/14/16 06:00 67 16 112/72 95 Room Air 09/14/16 05:00 62 16 121/77 96 Room Air 09/14/16 04:47 15 95 Room Air 09/14/16 04:00 Room Air 09/14/16 04:00 97.8 58 16 109/68 95 Room Air 97.8 09/14/16 03:00 60 15 105/70 95 Room Air 09/14/16 02:23 12 95 Room Air 09/14/16 02:00 60 14 105/67 94 Room Air 09/14/16 01:00 61 12 103/66 95 Room Air 09/14/16 00:00 Room Air 09/14/16 00:00 15 94 Room Air 09/13/16 23:59 97.9 64 18 100/66 95 Room Air 97.9 09/13/16 23:00 78 14 97/65 94 Room Air 09/13/16 22:00 80 16 110/69 94 Room Air 09/13/16 21:28 16 94 Room Air 09/13/16 21:22 Room Air 09/13/16 21:00 94 18 116/73 96 Room Air 09/13/16 20:30 16 95 Room Air 09/13/16 20:00 Room Air 09/13/16 20:00 98.0 78 16 129/73 95 Room Air 16.0 98.0 09/13/16 20:00 94 18 116/73 96 Room Air 09/13/16 19:00 77 16 135/74 95 Room Air 09/13/16 18:00 79 19 129/76 94 Room Air 09/13/16 17:51 14 99 Room Air 09/13/16 17:00 97.9 80 16 127/79 99 Room Air 97.9 09/13/16 16:33 16 99 Room Air 09/13/16 15:37 77 20 141/76 97 Room Air 09/13/16 15:18 Room Air 09/13/16 15:15 72 20 140/79 95 Room Air 09/13/16 15:00 80 20 142/80 96 Room Air 09/13/16 14:45 82 18 152/89 96 Room Air 09/13/16 14:30 80 22 143/80 96 Room Air 09/13/16 14:15 80 20 155/84 96 Room Air 09/13/16 14:00 76 18 152/87 96 Room Air 09/13/16 13:45 70 22 151/82 96 Room Air 09/13/16 13:30 97.9 68 20 160/89 96 Room Air 97.9 09/13/16 13:09 18 96 Room Air 09/13/16 13:06 72 20 170/79 97 Room Air 09/13/16 12:06 70 20 152/79 97 Room Air 09/13/16 11:45 62 20 161/83 97 Room Air 09/13/16 11:20 20 97 Room Air 09/13/16 11:15 60 18 175/88 96 Room Air 09/13/16 10:45 54 18 177/88 96 Room Air 09/13/16 10:15 56 18 177/93 96 Room Air 09/13/16 09:43 97.4 61 18 200/95 96 Room Air 97.4 Medication Medications Current Medications Bacitracin/Sodium Chloride (Iv Sodium Chloride 0.9% 1000ml Bag) 1,000 ml @ 1, 000 mls/hr 1X PERIOP ONCE IRR ; Start 09/15/16 at 08:00; Stop 09/15/16 at 08:59 Dexamethasone Sodium Phosphate (Decadron) 2 mg Q6HRS IV ; Start 09/13/16 at 18:00 ; Stop 09/13/16 at 18:00; Status DC Dexamethasone Sodium Phosphate 4 mg 4 mg Q6HRS IV Last administered on 11:39; Start 09/13/16 at 18:00 Fentanyl Citrate (Fentanyl 2ml Vial) 25 mcg PRN Q5MIN PRN IV MILD PAIN; Start 09/15/16 at 07:00; Stop 09/16/16 at 06:59 Fentanyl Citrate (Fentanyl 2ml Vial) 50 mcg PRN Q5MIN PRN IV MODERATE PAIN; Start 09/15/16 at 07:00; Stop 09/16/16 at 06:59 Fentanyl Citrate 25 mcg 25 mcg PRN Q1HR PRN IV PAIN; Start 09/14/16 at 12:30 Hydromorphone HCl (Dilaudid) 0.5 mg PRN Q10MIN PRN IV SEVERE PAIN, Second choice; Start 09/15/16 at 07:00; Stop 09/16/16 at 06:59 Info (Do NOT chart on this entry -- for MONITORING) 1 each PRN DAILY PRN MC SEE COMMENTS; Start 09/14/16 at 08:00; Stop 09/16/16 at 07:59 Iohexol (Omnipaque 300 Mg/ml) 75 ml 1X ONCE IV Last administered on 09/14/16 08:40; Start 09/14/16 at 08:00; Stop 09/14/16 at 08:01; Status DC Lactated Ringer's (Iv Lactated Ringers) 1,000 ml @ 0 mls/hr Q0M IV ; Start 09/15 at 07:00; Stop 09/15/16 at 18:59 Levetiracetam/ Sodium Chloride (Keppra/Iv Sodium Chloride 0.9% 100ml) 105 ml @ 400 mls/hr Q12HR IV Last administered on 09/14/16 08:15; Start 09/13/16 at 14:30 Lidocaine HCl 2 ml 1X PRN PRN ID IV START; Start 09/15/16 at 07:00; Stop at 06:59 Morphine Sulfate 1 mg 1 mg PRN Q10MIN PRN IV SEVERE PAIN; Start 09/15/16 at 07: 00; Stop 09/16/16 at 06:59 Morphine Sulfate 15 mg 15 mg BID PO Last administered on 09/14/16 08:16; Start 09/13/16 at 15:00 Ondansetron HCl (Zofran) 4 mg PRN Q6HRS PRN IV Nausea; Start 09/15/16 at 07:00; Stop 09/16/16 at 06:59 Oxycodone/ Acetaminophen (Percocet 10/325) 1 tab PRN Q4HRS PRN PO pain Last administered on 09/14/16 10:06; Start 09/13/16 at 15:00 Potassium Chloride/Dextrose/ Sod Cl (KCl 20 Meq In D5W-1/2 NS) 1,000 ml @ 100 mls/hr 1X ONCE IV Last administered on 09/13/16 16:33; Start 09/13/16 at 15:00 ; Stop 09/14/16 at 00:59; Status DC Prochlorperazine Edisylate (Compazine) 5 mg PACU PRN PRN IV NAUSEA; Start at 07:00; Stop 09/16/16 at 06:59 Comment Review of Relevant I have reviewed the following items samara (where applicable) has been applied. BOYD SURESH MD Sep 14, 2016 14:24
--- NOTE | 2016-09-14 15:19 | PDOC ---
Provider Note Provider Note Staging evaluation of CT chest abd and pelvis all clear of occult visceral metastatic disease. Right cerebellar exploration and resection of hemorrhagic metastasis planned for 09/15/2016. Anticipate post operative whole brain treatment to occur after recovery. Family want to pursue this in [facility] where previous pre operative treatment of primary esophageal was performed. SID SANTANA MD Sep 14, 2016 15:19
[2016-09-14] MEDS ORDERED: POTASSIUM CL 20MEQ D5-0.45NACL 1,000 ML IV ONE (17:30)
[2016-09-14] MEDS ORDERED: POTASSIUM CHLORIDE 20 MEQ in IV DEXTROSE 5 %-0.45 % NACL 1,000 ML IV SCH (23:15)
[2016-09-14] MEDS: POTASSIUM CL 20MEQ D5-0.45NACL 1,000 ML IV SCH (23:33)
[2016-09-15] VITALS (23 sets, daily range): BP systolic 93–211; BP diastolic 54–101
[2016-09-15] MEDS: FENTANYL PF 100 MCG/2 ML VIAL. IV PRN ×7 (04:29→21:04)
[2016-09-15] MEDS: DEXAMETHASONE SOD PHOS 4 MG/ML VIAL IV SCH ×3 (05:50→17:25)
[2016-09-15 06:14] LABS: HEMATOCRIT 35.5 % (39.0-53.0); HEMOGLOBIN 11.6 g/dL (13.0-17.5); RED BLOOD COUNT 4.14 x10^6/uL (4.30-5.70); RED CELL DISTRIBUTION WIDTH 16.9 % (11.5-14.5); WHITE BLOOD COUNT 16.2 x10^3/uL (4.0-11.0)
[2016-09-15 06:35] LABS: ALBUMIN 2.8 g/dL (3.4-5.0); ALBUMIN/GLOBULIN RATIO 0.8 (1.0-1.7); CALCIUM 8.5 mg/dL (8.5-10.1); CREATININE 0.8 mg/dL (0.7-1.3); GFR 98.9; POTASSIUM 4.1 mmol/L (3.5-5.1); TOTAL BILIRUBIN 0.3 mg/dL (0.2-1.0); TOTAL PROTEIN 6.1 g/dL (6.4-8.2)
[2016-09-15 06:40] LABS: INR 1.1 (0.8-1.1); PROTHROMBIN TIME PATIENT 13.2 SEC (11.7-14.0)
[2016-09-15] MEDS ORDERED: LIDOCAINE 1%/EPI 1:100,000 20 ML VIAL. ONE (06:41)
[2016-09-15] MEDS ORDERED: THROMBIN 20,000 UNIT SPRAY.SYRN KIT TP ONE (06:42)
[2016-09-15] MEDS ORDERED: GELATIN SPONGE SIZE 100. ONE ×2 (06:42→10:14)
[2016-09-15] MEDS ORDERED: GELATIN MUCOSAL POWDER. ONE (06:42)
[2016-09-15] MEDS ORDERED: BACITRACIN TOPICAL OINT 14GM TUBE. TP ONE (06:43)
[2016-09-15] MEDS ORDERED: POVIDONE-IODINE 10% TOPICAL OINTMENT 28GM TUBE. TP ONE (06:43)
[2016-09-15] MEDS ORDERED: IV RINGERS,LACTATED 1000ML 1,000 ML IV SCH (07:00)
[2016-09-15] MEDS ORDERED: LIDOCAINE 1% 1 ML SYRINGE. ID PRN (07:00)
[2016-09-15] MEDS ORDERED: PROCHLORPERAZINE 10 MG/2 ML VIAL. IV PRN (07:00)
[2016-09-15] MEDS ORDERED: ONDANSETRON PF 4 MG/2 ML VIAL. IV PRN (07:00)
[2016-09-15] MEDS ORDERED: MORPHINE SULFATE 2 MG/ML DISP.SYRIN. IV PRN (07:00)
[2016-09-15] MEDS ORDERED: BACITRACIN 50,000 UNIT in IV NORMAL SALINE 1000ML BAG 1,000 ML IRR ONE (08:00)
[2016-09-15] MEDS ORDERED: GADOBUTROL 7.5 MMOL/7.5 ML VIAL IV ONE (08:15)
--- NOTE | 2016-09-15 08:47 | PDOC ---
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 No weakness, speech issues. Headed to surgery shortly. Objective: Vital Signs: Vital Signs Date Time Temp Pulse Resp B/P Pulse Ox O2 Delivery O2 Flow Rate FiO2 09/15/16 08:00 Room Air 09/15/16 07:04 16 96 09/15/16 07:00 97.8 65 123/76 97.8 09/14/16 17:34 16.0 Physical Exam: General: Alert, Oriented X3, No acute distress Lungs: Other (no resp distress) Neuro: Other (no cranial deficits) Psych/Mental Status: Mental status NL, Mood NL Labs/Imaging: Ct C/A/P neg for systemic disease Assessment/Plan A/P: 1. H/o locally advanced esophageal cancer s/p neoadjuvant chemoradiation followed by esophagectomy in [place], [place], primary oncologist is Dr. Douglas Aragon.- Have requested clinic records. 2. 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
[2016-09-15] MEDS ORDERED: ONDANSETRON PF 4 MG/2 ML VIAL. ONE (08:54)
[2016-09-15] MEDS ORDERED: PROPOFOL 50 ML IV ONE (08:54)
[2016-09-15] MEDS ORDERED: DEXAMETHASONE SOD PHOS 20 MG/5 ML VIAL. ONE (08:54)
[2016-09-15] MEDS ORDERED: FENTANYL PF 100 MCG/2 ML VIAL. ONE (08:54)
[2016-09-15] MEDS ORDERED: PROPOFOL 20 ML IV ONE (08:54)
[2016-09-15] MEDS ORDERED: LIDOCAINE 2% 100 MG/5 ML DISP.SYRIN. ONE (08:54)
[2016-09-15] MEDS ORDERED: REMIFENTANIL 2 MG VIAL. IV ONE (08:54)
[2016-09-15] MEDS ORDERED: 0.9 % SODIUM CHLORIDE 50 ML VIAL. IJ ONE (08:55)
[2016-09-15] MEDS ORDERED: ROCURONIUM 50 MG/5 ML VIAL. ONE (09:00)
[2016-09-15] MEDS: LEVETIRACETAM 500 MG in IV NORMAL SALINE 100ML 100 ML IV SCH ×2 (09:00→21:04)
[2016-09-15] MEDS: MORPHINE ER 15 MG TABLET.ER PO SCH ×2 (09:00→19:28)
--- NOTE | 2016-09-15 09:01 | RAD ---
PROCEDURE MRI brain lab with contrast. HISTORY Preop, history of esophageal cancer TECHNIQUE Post contrast MR imaging was performed as per the brain lab protocol. Contrast: 6 cc Gadavist. COMPARISON 09/13/2016 FINDINGS Corresponding with the recent exam, there is a large enhancing mass of the right cerebellum on the order of 4.6 centimeters. There are other enhancing intra-axial nodules as seen on the recent exam. There is again mass effect upon the 4th ventricle. IMPRESSION 1. There are intracranial enhancing masses, largest of the right cerebellum. Electronically signed by: Иван Ugalde MD (Sep 15, 2016 08:59:28)
[2016-09-15] MEDS ORDERED: MIDAZOLAM HCL 2 MG/2 ML VIAL. ONE (09:02)
[2016-09-15] MEDS ORDERED: CEFAZOLIN 2GM PREMIX 50 ML IV ONE ×3 (09:12→09:30)
--- NOTE | 2016-09-15 09:24 | PDOC ---
SUBJECTIVE Subjective Headaches and nausea improved. Likely due to steroid. Denies other acute changes. ROS: denies cp, soa, visual changes, paresthesias, focal weakness OBJECTIVE Objective MRI brain lab for stereotaxis reviewed CT c/a/p neg for other systemic lesions Vital Signs Vital Signs Date Time Temp Pulse Resp B/P Pulse Ox O2 Delivery O2 Flow Rate FiO2 09/15/16 09:08 97.6 65 140/74 96 Room Air 97.6 09/15/16 08:00 Room Air 09/15/16 07:34 14 96 Room Air 09/15/16 07:04 16 96 Room Air 09/15/16 07:00 97.8 65 20 123/76 95 Room Air 97.8 09/15/16 06:00 57 16 113/68 94 Room Air 09/15/16 05:15 12 95 Room Air 09/15/16 05:00 64 15 117/71 95 Room Air 09/15/16 04:29 20 96 Room Air 09/15/16 04:00 Room Air 09/15/16 04:00 97.9 62 16 96/54 95 Room Air 97.9 09/15/16 03:00 63 12 93/54 93 Room Air 09/15/16 02:00 72 12 117/68 94 Room Air 09/15/16 01:20 12 94 Room Air 09/15/16 01:00 65 14 115/71 95 Room Air 09/15/16 00:00 97.9 65 15 118/74 95 Room Air 97.9 09/15/16 00:00 Room Air 09/14/16 23:31 16 96 Room Air 09/14/16 23:00 60 16 112/71 94 Room Air 09/14/16 22:00 63 14 109/67 95 Room Air 09/14/16 21:15 15 95 Nasal Cannula 09/14/16 21:15 16 95 Room Air 09/14/16 21:14 16 95 Room Air 09/14/16 21:00 75 15 117/67 96 Room Air 09/14/16 20:01 16 94 Room Air 09/14/16 20:00 Room Air 09/14/16 20:00 97.9 82 18 118/73 94 Room Air 97.9 09/14/16 19:00 82 16 109/72 94 Room Air 09/14/16 18:04 14 96 Room Air 09/14/16 18:00 82 18 109/71 96 Room Air 09/14/16 17:34 16 96 Room Air 16.0 09/14/16 17:00 98.2 100 19 130/80 96 Room Air 98.2 09/14/16 16:00 Room Air 09/14/16 16:00 70 16 109/66 95 Room Air 09/14/16 15:00 74 16 109/66 94 Room Air 09/14/16 14:00 74 16 97/63 95 Room Air 09/14/16 13:00 76 18 92/62 94 Room Air 09/14/16 12:00 Room Air 09/14/16 12:00 97.7 89 16 103/64 94 Room Air 97.7 09/14/16 10:50 62 18 116/64 94 Room Air 09/14/16 10:06 16 95 Room Air 09/14/16 10:00 66 16 117/73 97 Room Air I & O Intake and Output 09/15/16 07:00 Intake Total 2382 ml Output Total 600 ml Balance 1782 ml Intake Oral 1080 ml IV Total 1302 ml Output Urine Total 600 ml # Voids 4 PHYSICAL EXAM Physical Exam AAOX4, NAD, PERRL, EOMI, RAMESH 5/5, sensation intact LT ASSESSMENT/PLAN Assessment/Plan 61M with multiple brain masses. Predominant right posterior fossa mass lesion with mass effect. -stereotactic suboccipital craniectomy for resection today Problems: COMMENT Lab Laboratory Tests Test 09/15/16 05:39 White Blood Count 16.2x10^3/uL (4.0-11.0) Red Blood Count 4.14x10^6/uL (4.30-5.70) Hemoglobin 11.6g/dL (13.0-17.5) Hematocrit 35.5% (39.0-53.0) Mean Corpuscular Volume 86fL (79-100) Mean Corpuscular Hemoglobin 28pg (25-35) Mean Corpuscular Hemoglobin Concent 33g/dL (31-37) Red Cell Distribution Width 16.9% (11.5-14.5) Platelet Count 252x10^3/uL (140-400) Prothrombin Time 13.2SEC (11.7-14.0) Prothromb Time International Ratio 1.1 (0.8-1.1) Sodium Level 139mmol/L (136-145) Potassium Level 4.1mmol/L (3.5-5.1) Chloride Level 105mmol/L (98-107) Carbon Dioxide Level 24mmol/L (21-32) Anion Gap 10 (6-14) Blood Urea Nitrogen 18mg/dL (8-26) Creatinine 0.8mg/dL (0.7-1.3) Estimated GFR (Cockcroft-Gault) 98.9 BUN/Creatinine Ratio 23 (6-20) Glucose Level 124mg/dL (70-99) Calcium Level 8.5mg/dL (8.5-10.1) Total Bilirubin 0.3mg/dL (0.2-1.0) Aspartate Amino Transf (AST/SGOT) 8U/L (15-37) Alanine Aminotransferase (ALT/SGPT) 12U/L (16-63) Alkaline Phosphatase 65U/L (46-116) Total Protein 6.1g/dL (6.4-8.2) Albumin 2.8g/dL (3.4-5.0) Albumin/Globulin Ratio 0.8 (1.0-1.7) BHARTI VALADEZ MD Sep 15, 2016 09:24
[2016-09-15] MEDS ORDERED: SURGICEL HEMOSTAT 4X8 EACH. ONE (10:13)
[2016-09-15] MEDS ORDERED: MANNITOL 25% 12.5 G/50 ML VIAL FOR OR. ONE (10:14)
[2016-09-15] MEDS ORDERED: PHENYLEPHRINE in 0.9% NACL PF 1 MG/10 ML DISP.SYRIN. IV ONE (10:34)
[2016-09-15] MEDS ORDERED: CHONDROIT-SOD-HYALURONATE KIT. ONE (12:58)
[2016-09-15] MEDS ORDERED: MINERAL OIL/PETROLATUM,WHITE OPHTH OINT 3.5GM TUBE. ONE (13:19)
--- NOTE | 2016-09-15 13:58 | PDOC ---
BRIEF OPERATIVE NOTE Date: Sep 15, 2016 Pre-Op Diagnosis right cerebellar mass Post-Op Diagnosis same Procedure Performed stereotactic right suboccipital craniectomy for resection of right cerebellar mass Surgeon [employer] none Anesthesia Type: General Blood Loss 100mL Specimens Obtained frozen and permanent Findings mass lesion right cerebellum, appearance c/w metastatic disease grossly Complications none apparent BHARTI VALADEZ MD Sep 15, 2016 13:57
[2016-09-15] MEDS: HYDROMORPHONE 2 MG/ML VIAL. IV PRN ×3 (14:05→23:22)
[2016-09-15] MEDS ORDERED: FENTANYL PF 100 MCG/2 ML VIAL. IV PRN (14:15)
[2016-09-15] MEDS ORDERED: NICARDIPINE HCL 50 MG in IV NORMAL SALINE 250ML 250 ML IV ONE (14:30)
--- NOTE | 2016-09-15 15:38 | PDOC ---
PROGRESS NOTES Chief Complaint Chief Complaint CC: HEADACHES A/P Recent esophageal cancer, who presents with a hemorrhagic right cerebellar mass , suspected malignant lesions, s/p resection of right cerebellar mass 09/15/16 HTN urgency Plan s/p resection of right cerebellar mass today Pain control IV Dilaudid follow NS recommendations. IV Decadron nicardipine gtt, goals sbp < 140 IV Keppra IV Zofran PRN cbc/bmp in AM pain control with iv morphine Neuro checks per protocol ICU stay History of Present Illness History of Present Illness seen after surgery BP not controlled pain no fever Vitals Vitals Vital Signs Date Time Temp Pulse Resp B/P Pulse Ox O2 Delivery O2 Flow Rate FiO2 09/15/16 15:10 16 100 Room Air 10.0 09/15/16 09:08 97.6 65 140/74 97.6 Physical Exam Heart: Normal S1, Normal S2 Lungs: Clear Abdomen: Normal bowel sounds, Soft Extremities: No clubbing, No cyanosis, No edema Labs LABS Laboratory Tests Test 09/15/16 05:39 White Blood Count 16.2x10^3/uL (4.0-11.0) Red Blood Count 4.14x10^6/uL (4.30-5.70) Hemoglobin 11.6g/dL (13.0-17.5) Hematocrit 35.5% (39.0-53.0) Mean Corpuscular Volume 86fL (79-100) Mean Corpuscular Hemoglobin 28pg (25-35) Mean Corpuscular Hemoglobin Concent 33g/dL (31-37) Red Cell Distribution Width 16.9% (11.5-14.5) Platelet Count 252x10^3/uL (140-400) Prothrombin Time 13.2SEC (11.7-14.0) Prothromb Time International Ratio 1.1 (0.8-1.1) Sodium Level 139mmol/L (136-145) Potassium Level 4.1mmol/L (3.5-5.1) Chloride Level 105mmol/L (98-107) Carbon Dioxide Level 24mmol/L (21-32) Anion Gap 10 (6-14) Blood Urea Nitrogen 18mg/dL (8-26) Creatinine 0.8mg/dL (0.7-1.3) Estimated GFR (Cockcroft-Gault) 98.9 BUN/Creatinine Ratio 23 (6-20) Glucose Level 124mg/dL (70-99) Calcium Level 8.5mg/dL (8.5-10.1) Total Bilirubin 0.3mg/dL (0.2-1.0) Aspartate Amino Transf (AST/SGOT) 8U/L (15-37) Alanine Aminotransferase (ALT/SGPT) 12U/L (16-63) Alkaline Phosphatase 65U/L (46-116) Total Protein 6.1g/dL (6.4-8.2) Albumin 2.8g/dL (3.4-5.0) Albumin/Globulin Ratio 0.8 (1.0-1.7) Assessment and Plan Assessmemt and Plan Problems Medical Problems: (1) Cerebellar mass Status: Acute (2) Intracranial hemorrhage Status: Acute Problems: Comment Review of Relevant I have reviewed the following items samara (where applicable) has been applied. Labs Laboratory Tests Test 09/15/16 05:39 White Blood Count 16.2x10^3/uL (4.0-11.0) Red Blood Count 4.14x10^6/uL (4.30-5.70) Hemoglobin 11.6g/dL (13.0-17.5) Hematocrit 35.5% (39.0-53.0) Mean Corpuscular Volume 86fL (79-100) Mean Corpuscular Hemoglobin 28pg (25-35) Mean Corpuscular Hemoglobin Concent 33g/dL (31-37) Red Cell Distribution Width 16.9% (11.5-14.5) Platelet Count 252x10^3/uL (140-400) Prothrombin Time 13.2SEC (11.7-14.0) Prothromb Time International Ratio 1.1 (0.8-1.1) Sodium Level 139mmol/L (136-145) Potassium Level 4.1mmol/L (3.5-5.1) Chloride Level 105mmol/L (98-107) Carbon Dioxide Level 24mmol/L (21-32) Anion Gap 10 (6-14) Blood Urea Nitrogen 18mg/dL (8-26) Creatinine 0.8mg/dL (0.7-1.3) Estimated GFR (Cockcroft-Gault) 98.9 BUN/Creatinine Ratio 23 (6-20) Glucose Level 124mg/dL (70-99) Calcium Level 8.5mg/dL (8.5-10.1) Total Bilirubin 0.3mg/dL (0.2-1.0) Aspartate Amino Transf (AST/SGOT) 8U/L (15-37) Alanine Aminotransferase (ALT/SGPT) 12U/L (16-63) Alkaline Phosphatase 65U/L (46-116) Total Protein 6.1g/dL (6.4-8.2) Albumin 2.8g/dL (3.4-5.0) Albumin/Globulin Ratio 0.8 (1.0-1.7) Laboratory Tests Test 09/15/16 05:39 White Blood Count 16.2x10^3/uL (4.0-11.0) Red Blood Count 4.14x10^6/uL (4.30-5.70) Hemoglobin 11.6g/dL (13.0-17.5) Hematocrit 35.5% (39.0-53.0) Mean Corpuscular Volume 86fL (79-100) Mean Corpuscular Hemoglobin 28pg (25-35) Mean Corpuscular Hemoglobin Concent 33g/dL (31-37) Red Cell Distribution Width 16.9% (11.5-14.5) Platelet Count 252x10^3/uL (140-400) Prothrombin Time 13.2SEC (11.7-14.0) Prothromb Time International Ratio 1.1 (0.8-1.1) Sodium Level 139mmol/L (136-145) Potassium Level 4.1mmol/L (3.5-5.1) Chloride Level 105mmol/L (98-107) Carbon Dioxide Level 24mmol/L (21-32) Anion Gap 10 (6-14) Blood Urea Nitrogen 18mg/dL (8-26) Creatinine 0.8mg/dL (0.7-1.3) Estimated GFR (Cockcroft-Gault) 98.9 BUN/Creatinine Ratio 23 (6-20) Glucose Level 124mg/dL (70-99) Calcium Level 8.5mg/dL (8.5-10.1) Total Bilirubin 0.3mg/dL (0.2-1.0) Aspartate Amino Transf (AST/SGOT) 8U/L (15-37) Alanine Aminotransferase (ALT/SGPT) 12U/L (16-63) Alkaline Phosphatase 65U/L (46-116) Total Protein 6.1g/dL (6.4-8.2) Albumin 2.8g/dL (3.4-5.0) Albumin/Globulin Ratio 0.8 (1.0-1.7) Medications Current Medications Sodium Chloride (Iv Sodium Chloride 0.9% 1000ml Bag) 1,000 ml @ 1,000 mls/hr Q1H IV Last administered on 09/13/16 11:20; Start 09/13/16 at 10:44; Stop at 11:43; Status DC Fentanyl Citrate (Fentanyl 2ml Vial) 50 mcg 1X ONCE IV Last administered on 11:20; Start 09/13/16 at 10:45; Stop 09/13/16 at 10:53; Status DC Meclizine HCl 25 mg 25 mg 1X ONCE PO Last administered on 09/13/16 11:19; Start 09/13/16 at 10:45; Stop 09/13/16 at 10:53; Status DC Nicardipine HCl/ Sodium Chloride (Cardene/Iv Sodium Chloride 0.9% 250ml) 270 ml @ 0 mls/hr CONT PRN IV SEE I/O RECORD; Start 09/13/16 at 11:15; Stop 09/13/16 at 11:22; Status DC Dexamethasone Sodium Phosphate 10 mg 10 mg 1X ONCE IV Last administered on 09/13 11:33; Start 09/13/16 at 12:00; Stop 09/13/16 at 12:01; Status DC Nicardipine HCl/ Sodium Chloride (Cardene/Iv Sodium Chloride 0.9% 250ml) 270 ml @ 0 mls/hr CONT PRN IV SEE I/O RECORD Last administered on 09/13/16 22:20; Start 09/13/16 at 12:00 Ondansetron HCl (Zofran) 4 mg PRN Q8HRS PRN IV NAUSEA/VOMITING Last administered on 09/14/16 08:31; Start 09/13/16 at 11:30; Stop 09/14/16 at 11:29; Status DC Fentanyl Citrate (Fentanyl 2ml Vial) 50 mcg PRN Q1HR PRN IV PAIN Last administered on 09/14/16 08:16; Start 09/13/16 at 11:30; Stop 09/14/16 at 11:29; Status DC Acetaminophen (Tylenol) 650 mg PRN Q4HRS PRN PO FEVER; Start 09/13/16 at 11:30; Stop 09/14/16 at 11:29; Status DC Dexamethasone Sodium Phosphate (Decadron) 2 mg Q6HRS IV ; Start 09/13/16 at 18:00 ; Stop 09/13/16 at 18:00; Status DC Gadobutrol (Gadavist) 7.5 mmol 1X ONCE IV Last administered on 09/13/16 12:56 ; Start 09/13/16 at 13:00; Stop 09/13/16 at 13:01; Status DC Dexamethasone Sodium Phosphate 4 mg 4 mg Q6HRS IV Last administered on 05:50; Start 09/13/16 at 18:00 Levetiracetam/ Sodium Chloride (Keppra/Iv Sodium Chloride 0.9% 100ml) 105 ml @ 400 mls/hr Q12HR IV Last administered on 09/14/16 21:13; Start 09/13/16 at 14:30 Lorazepam (Ativan) 2 mg PRN Q6HRS PRN IV ANXIETY / AGITATION Last administered on 09/14/16 11:38; Start 09/13/16 at 14:15 Oxycodone/ Acetaminophen (Percocet 10/325) 1 tab PRN Q4HRS PRN PO pain Last administered on 09/14/16 20:01; Start 09/13/16 at 15:00 Morphine Sulfate 15 mg 15 mg BID PO Last administered on 09/14/16 21:14; Start 09/13/16 at 15:00 Potassium Chloride/Dextrose/ Sod Cl (KCl 20 Meq In D5W-1/2 NS) 1,000 ml @ 100 mls/hr 1X ONCE IV Last administered on 09/13/16 16:33; Start 09/13/16 at 15:00 ; Stop 09/14/16 at 00:59; Status DC Iohexol (Omnipaque 300 Mg/ml) 75 ml 1X ONCE IV Last administered on 09/14/16 08:40; Start 09/14/16 at 08:00; Stop 09/14/16 at 08:01; Status DC Info (Do NOT chart on this entry -- for MONITORING) 1 each PRN DAILY PRN MC SEE COMMENTS; Start 09/14/16 at 08:00; Stop 09/16/16 at 07:59 Ondansetron HCl (Zofran) 4 mg PRN Q6HRS PRN IV Nausea; Start 09/15/16 at 07:00; Stop 09/16/16 at 06:59 Fentanyl Citrate (Fentanyl 2ml Vial) 25 mcg PRN Q5MIN PRN IV MILD PAIN Last administered on 09/14/16 21:15; Start 09/15/16 at 07:00; Stop 09/16/16 at 06:59 Fentanyl Citrate (Fentanyl 2ml Vial) 50 mcg PRN Q5MIN PRN IV MODERATE PAIN Last administered on 09/15/16 15:10; Start 09/15/16 at 07:00; Stop 09/16/16 at 06: 59 Morphine Sulfate 1 mg 1 mg PRN Q10MIN PRN IV SEVERE PAIN; Start 09/15/16 at 07: 00; Stop 09/16/16 at 06:59 Lactated Ringer's (Iv Lactated Ringers) 1,000 ml @ 0 mls/hr Q0M IV Last administered on 09/15/16 09:16; Start 09/15/16 at 07:00; Stop 09/15/16 at 18:59 Lidocaine HCl 2 ml 1X PRN PRN ID IV START; Start 09/15/16 at 07:00; Stop at 06:59 Hydromorphone HCl (Dilaudid) 0.5 mg PRN Q10MIN PRN IV SEVERE PAIN, Second choice Last administered on 09/15/16 14:05; Start 09/15/16 at 07:00; Stop at 06:59 Prochlorperazine Edisylate (Compazine) 5 mg PACU PRN PRN IV NAUSEA; Start at 07:00; Stop 09/16/16 at 06:59 Fentanyl Citrate 25 mcg 25 mcg PRN Q1HR PRN IV PAIN Last administered on 07:04; Start 09/14/16 at 12:30 Bacitracin 74326 unit/Sodium Chloride 1,000 ml @ 1,000 mls/hr 1X PERIOP ONCE IRR Last administered on 09/15/16 10:33; Start 09/15/16 at 08:00; Stop 09/15/16 at 08:59; Status DC Potassium Chloride/Dextrose/ Sod Cl 1,000 ml @ 40 mls/hr 1X ONCE IV Last administered on 09/14/16 17:30; Start 09/14/16 at 17:30; Stop 09/15/16 at 18:29 Potassium Chloride/Dextrose/ Sodium Chloride (Iv D5% - 1/2 NS) 1,010 ml @ 40 mls/hr Q24H IV ; Start 09/14/16 at 23:15; Status UNV Fentanyl Citrate 50 mcg 50 mcg PRN Q2HR PRN IV SEVERE PAIN Last administered on 09/15/16 04:29; Start 09/14/16 at 23:15; Stop 09/15/16 at 14:35; Status DC Potassium Chloride/Dextrose/ Sod Cl (KCl 20 Meq In D5W-1/2 NS) 1,000 ml @ 40 mls/hr Q24H IV Last administered on 09/14/16 23:33; Start 09/14/16 at 23:30 Lidocaine/ Epinephrine (Xylocaine 1%-Epi 1:100,000) 20 ml STK-MED ONCE .ROUTE Last administered on 09/15/16 10:33; Start 09/15/16 at 06:41; Stop 09/15/16 at 06: 42; Status DC Thrombin 20,000 unit STK-MED ONCE TP Last administered on 09/15/16 10:33; Start 09/15/16 at 06:42; Stop 09/15/16 at 06:43; Status DC Gelatin (Gelfoam Powder) 1 gm STK-MED ONCE .ROUTE Last administered on 10:33; Start 09/15/16 at 06:42; Stop 09/15/16 at 06:43; Status DC Gelatin (Gelfoam Size 100) 1 each STK-MED ONCE .ROUTE ; Start 09/15/16 at 06:42 ; Stop 09/15/16 at 06:43; Status DC Povidone Iodine ( Betadine Oint) 28 domenica STK-MED ONCE TP ; Start 09/15/16 at 06:43 ; Stop 09/15/16 at 06:44; Status DC Bacitracin 14 domenica STK-MED ONCE TP Last administered on 09/15/16t 10:33; Start at 06:43; Stop 09/15/16 at 06:44; Status DC Gadobutrol (Gadavist) 6 mmol 1X ONCE IV Last administered on 09/15/16t 08:43; Start 09/15/16 at 08:15; Stop 09/15/16 at 08:19; Status DC Dexamethasone Sodium Phosphate (Decadron) 20 mg STK-MED ONCE .ROUTE ; Start 09/15 at 08:54; Stop 09/15/16 at 08:55; Status DC Ondansetron HCl 4 mg 4 mg STK-MED ONCE .ROUTE ; Start 09/15/16 at 08:54; Stop 09/15/16 at 08:55; Status DC Propofol 50 ml @ As Directed STK-MED ONCE IV ; Start 09/15/16 at 08:54; Stop 09/15 at 08:55; Status DC Propofol (Diprivan) 20 ml @ As Directed STK-MED ONCE IV ; Start 09/15/16 at 08:54 ; Stop 09/15/16 at 08:55; Status DC Lidocaine HCl 100 mg STK-MED ONCE .ROUTE ; Start 09/15/16 at 08:54; Stop 09/15/16 at 08:55; Status DC Fentanyl Citrate (Fentanyl 2ml Vial) 100 mcg STK-MED ONCE .ROUTE ; Start at 08:54; Stop 09/15/16 at 08:55; Status DC Remifentanil HCl (Ultiva) 2 mg STK-MED ONCE IV ; Start 09/15/16 at 08:54; Stop at 08:55; Status DC Sodium Chloride (Sodium Chloride) 50 ml STK-MED ONCE IJ ; Start 09/15/16 at 08:55 ; Stop 09/15/16 at 08:56; Status DC Rocuronium Jasper (Zemuron) 50 mg STK-MED ONCE .ROUTE ; Start 09/15/16 at 09:00 ; Stop 09/15/16 at 09:01; Status DC Midazolam HCl 2 mg 2 mg STK-MED ONCE .ROUTE ; Start 09/15/16 at 09:02; Stop at 09:03; Status DC Cefazolin Sodium/ Dextrose 50 ml @ As Directed STK-MED ONCE IV ; Start 09/15/16 at 09:12; Stop 09/15/16 at 09:13; Status DC Cefazolin Sodium/ Dextrose 50 ml @ 100 mls/hr 1X ONCE IV ; Start 09/15/16 at 09 :15; Stop 09/15/16 at 09:44; Status UNV Cefazolin Sodium/ Dextrose (Ancef 2gm Premix) 50 ml @ 100 mls/hr 1X ONCE IV Last administered on 09/15/16 10:11; Start 09/15/16 at 09:30; Stop 09/15/16 at 09: 59; Status DC Cellulose 1 each STK-MED ONCE .ROUTE Last administered on 09/15/16 10:33; Start 09/15/16 at 10:13; Stop 09/15/16 at 10:14; Status DC Mannitol (Mannitol) 12.5 g STK-MED ONCE .ROUTE ; Start 09/15/16 at 10:14; Stop at 10:15; Status DC Gelatin (Gelfoam Size 100) 1 each STK-MED ONCE .ROUTE ; Start 09/15/16 at 10:14 ; Stop 09/15/16 at 10:15; Status DC Phenylephrine HCl 1 mg STK-MED ONCE IV ; Start 09/15/16 at 10:34; Stop 09/15/16 at 10:35; Status DC Irrigating Solution (Duovisc Kit) 1 kit STK-MED ONCE .ROUTE ; Start 09/15/16 at 12:58; Stop 09/15/16 at 12:59; Status DC Multi-Ingred Cream/Lotion/Oil/ Oint (Artificial Tears Eye Oint) 7 domenica STK-MED ONCE .ROUTE ; Start 09/15/16 at 13:19; Stop 09/15/16 at 13:20; Status DC Fentanyl Citrate (Fentanyl 2ml Vial) 50 mcg PRN Q1HR PRN IV SEVERE PAIN; Start 09/15/16 at 14:15 Fentanyl Citrate 25 mcg 25 mcg PRN Q1HR PRN IV SEVERE PAIN; Start 09/15/16 at 14 :15; Stop 09/15/16 at 14:35; Status DC Nicardipine HCl/ Sodium Chloride (Cardene/Iv Sodium Chloride 0.9% 250ml) 270 ml @ 27 mls/hr ONCE ONCE IV Last administered on 09/15/16t 14:26; Start 09/15/16 at 14:30; Stop 09/16/16 at 00:29 Vitals/I & O Vital Sign - Last 24 Hours 09/14/16 09/14/16 09/14/16 09/14/16 16:00 16:00 17:00 17:34 Temp 98.2 98.2 Pulse 70 100 Resp 16 19 16 B/P 109/66 130/80 Pulse Ox 95 96 96 O2 Delivery Room Air Room Air Room Air Room Air O2 Flow Rate 16.0 09/14/16 09/14/16 09/14/16 09/14/16 18:00 18:04 19:00 20:00 Temp 97.9 97.9 Pulse 82 82 82 Resp 18 14 16 18 B/P 109/71 109/72 118/73 Pulse Ox 96 96 94 94 O2 Delivery Room Air Room Air Room Air Room Air 09/14/16 09/14/16 09/14/16 09/14/16 20:00 20:01 21:00 21:14 Pulse 75 Resp 16 15 16 B/P 117/67 Pulse Ox 94 96 95 O2 Delivery Room Air Room Air Room Air Room Air 09/14/16 09/14/16 09/14/16 09/14/16 21:15 21:15 22:00 23:00 Pulse 63 60 Resp 16 15 14 16 B/P 109/67 112/71 Pulse Ox 95 95 95 94 O2 Delivery Room Air Nasal Cannula Room Air Room Air 09/14/16 09/15/16 09/15/16 09/15/16 23:31 00:00 00:00 01:00 Temp 97.9 97.9 Pulse 65 65 Resp 16 15 14 B/P 118/74 115/71 Pulse Ox 96 95 95 O2 Delivery Room Air Room Air Room Air Room Air 09/15/16 09/15/16 09/15/16 09/15/16 01:20 02:00 03:00 04:00 Temp 97.9 97.9 Pulse 72 63 62 Resp 12 12 12 16 B/P 117/68 93/54 96/54 Pulse Ox 94 94 93 95 O2 Delivery Room Air Room Air Room Air Room Air 09/15/16 09/15/16 09/15/16 09/15/16 04:00 04:29 05:00 05:15 Pulse 64 Resp 20 15 12 B/P 117/71 Pulse Ox 96 95 95 O2 Delivery Room Air Room Air Room Air Room Air 09/15/16 09/15/16 09/15/16 09/15/16 06:00 07:00 07:04 07:34 Temp 97.8 97.8 Pulse 57 65 Resp 16 20 16 14 B/P 113/68 123/76 Pulse Ox 94 95 96 96 O2 Delivery Room Air Room Air Room Air Room Air 09/15/16 09/15/16 09/15/16 09/15/16 08:00 08:00 09:08 14:05 Temp 97.6 97.6 Pulse 64 65 Resp 20 20 B/P 113/73 140/74 Pulse Ox 99 96 100 O2 Delivery Room Air Room Air Room Air Simple Mask O2 Flow Rate 10.0 09/15/16 09/15/16 09/15/16 09/15/16 14:15 14:35 14:35 15:10 Resp 16 18 18 16 Pulse Ox 100 100 100 100 O2 Delivery Room Air Room Air Room Air Room Air O2 Flow Rate 10.0 10.0 10.0 10.0 Intake and Output 09/14/16 09/14/16 09/15/16 15:00 23:00 07:00 Intake Total 400 ml 200 ml 1782 ml Output Total 600 ml Balance 400 ml 200 ml 1182 ml MARIOLA WASHINGTON MD Sep 15, 2016 15:38
--- NOTE | 2016-09-15 16:20 | PDOC ---
PROGRESS NOTES Assessment Assessment Large right most likely cerebellar metastatic mass with hemorrhage and mass effect and effacement of the 4th ventricle. Multiple small metastatic lesions in bilateral hemispheres. Cerebral edema. Headache ICP Vomiting Esophageal cancer s/p surgical resection about 5 months ago. Received chemo and radiation therapy before surgery. Right cerebellar tonsillar ectopia. GERD RECOMMENDATIONS/PLAN: Decadron 4 mg IV q6h. Keppra 500 mg bid. Ativan 2 mg IV if has seizure. BP control. Neurosurgery consulted. Right cerebellar mass resection on 09/15. Oncology on team Discussed with his family at bedside in ICU on 09/13/16. HISTORY OF THE PRESENT ILLNESS: 61-y-old male patient with Hx of esophageal cancer and received presurgical chemo and radiation therapies then surgery about 5 months ago. He developed symptoms of nausea, vomiting and headaches this time and metastatic intracranial disease with large hemorrhage in right cerebellar was evidential. He is doing fine on 09/15 after NS surgery for right cerebellar mass resection. PAST MEDICAL HISTORY: Please see above. PAST SURGERY HISTORY: Cholecystectomy Esophagectomy ALLERGY: Reviewed. MEDICATIONS: Refer to [facility] FAMILY HISTORY: Non contributory. SOCIAL HISTORY: Denies current smoking, drinking, and illicit drug use. He smoked 2 pack of cigarettes a day for many years but quit in 1991. REVIEW OF SYSTEMS: Constitutional: Mildly malnutrition. Head: No recent traumatic brain or head injury. Skin: No edema, or rash. Ear: No infection, tinnitus. Eyes: No vision loss or color blindness. Nose: No bleeding or purulent discharges. Hearing: No hearing decrease. Neck: No injury. Cardiac: No IA, arrhythmia. Pulmonary: No COPD. GI: GERD. Urinary/genital: No dysuria, hematuria, incontinence, urinary retention. Endocrinologic: No cousin face, craniofacial dysmorphism, polydactyly, goiter. Skeletomuscular: No muscular atrophy, deformity. Neurological: see HP. Psychiatric: Denies current drug use/abuse. Otherwise, not [id number] review of systems. PHYSICAL EXAMINATION: General appearance is in acute distress. HEENT: Normocephalic and nontraumatic. Eyes, nose, ears, and throat are unremarkable. Neck is supple. No lymphadenopathy. No crepitus. Cardiovascular: S1, S2, regular rate and rhythm. Pulmonary: Clear to auscultation bilaterally. Abdomen: Bowel sounds are positive. Extremities: No rash, lesions, or edema. No restriction of range of motion NEUROLOGICAL EXAMINATION: Sleepiness but arousable. Oriented to time, place and person on 09/15. PERRL. EOMI. CN: no focal findings. Muscle tone: within normal. Muscle strength: 4+ DTR: 2 Plantar reflex: Flexor response bilaterally Gait: not examined in bed. Sensory exam: no acute abnormal findings. F-T-N test not accurate. Objective Objective Vital Signs Date Time Temp Pulse Resp B/P Pulse Ox O2 Delivery O2 Flow Rate FiO2 09/15/16 15:30 88 15 159/70 100 Simple Mask 10.0 09/15/16 14:00 98.4 98.4 Intake and Output 09/15/16 07:00 Intake Total 2382 ml Output Total 600 ml Balance 1782 ml Intake Oral 1080 ml IV Total 1302 ml Output Urine Total 600 ml # Voids 4 Vitals Signs Vitals VS - Last 72 Hours, by Label Date Time Temp Pulse Resp B/P Pulse Ox O2 Delivery O2 Flow Rate FiO2 09/15/16 15:30 88 15 159/70 100 Simple Mask 10.0 09/15/16 15:10 16 100 Room Air 10.0 09/15/16 15:00 92 21 169/77 100 Simple Mask 10.0 09/15/16 14:45 78 16 161/95 100 Simple Mask 10.0 09/15/16 14:35 18 100 Room Air 10.0 09/15/16 14:35 18 100 Room Air 10.0 09/15/16 14:30 68 18 207/95 100 Simple Mask 10.0 09/15/16 14:15 68 14 211/100 100 Simple Mask 10.0 09/15/16 14:15 16 100 Room Air 10.0 09/15/16 14:05 20 100 Simple Mask 10.0 09/15/16 14:00 98.4 68 16 200/101 99 Simple Mask 10.0 98.4 09/15/16 09:08 97.6 65 140/74 96 Room Air 97.6 09/15/16 08:00 Room Air 09/15/16 08:00 64 20 113/73 99 Room Air 09/15/16 07:34 14 96 Room Air 09/15/16 07:04 16 96 Room Air 09/15/16 07:00 97.8 65 20 123/76 95 Room Air 97.8 09/15/16 06:00 57 16 113/68 94 Room Air 09/15/16 05:15 12 95 Room Air 09/15/16 05:00 64 15 117/71 95 Room Air 09/15/16 04:29 20 96 Room Air 09/15/16 04:00 Room Air 09/15/16 04:00 97.9 62 16 96/54 95 Room Air 97.9 09/15/16 03:00 63 12 93/54 93 Room Air 09/15/16 02:00 72 12 117/68 94 Room Air 09/15/16 01:20 12 94 Room Air 09/15/16 01:00 65 14 115/71 95 Room Air 09/15/16 00:00 97.9 65 15 118/74 95 Room Air 97.9 09/15/16 00:00 Room Air 09/14/16 23:31 16 96 Room Air 09/14/16 23:00 60 16 112/71 94 Room Air 09/14/16 22:00 63 14 109/67 95 Room Air 09/14/16 21:15 15 95 Nasal Cannula 09/14/16 21:15 16 95 Room Air 09/14/16 21:14 16 95 Room Air 09/14/16 21:00 75 15 117/67 96 Room Air 09/14/16 20:01 16 94 Room Air 09/14/16 20:00 Room Air 09/14/16 20:00 97.9 82 18 118/73 94 Room Air 97.9 09/14/16 19:00 82 16 109/72 94 Room Air 09/14/16 18:04 14 96 Room Air 09/14/16 18:00 82 18 109/71 96 Room Air 09/14/16 17:34 16 96 Room Air 16.0 09/14/16 17:00 98.2 100 19 130/80 96 Room Air 98.2 09/14/16 16:00 Room Air 09/14/16 16:00 70 16 109/66 95 Room Air 09/14/16 15:00 74 16 109/66 94 Room Air 09/14/16 14:00 74 16 97/63 95 Room Air 09/14/16 13:00 76 18 92/62 94 Room Air 09/14/16 12:00 Room Air 09/14/16 12:00 97.7 89 16 103/64 94 Room Air 97.7 09/14/16 10:50 62 18 116/64 94 Room Air 09/14/16 10:06 16 95 Room Air 09/14/16 10:00 66 16 117/73 97 Room Air 09/14/16 09:00 64 16 125/73 95 Room Air 09/14/16 08:45 12 95 Room Air 09/14/16 08:16 16 95 Room Air 09/14/16 08:16 16 95 Room Air 09/14/16 07:49 97.9 63 18 115/74 95 Room Air 97.9 09/14/16 07:22 Room Air Laboratory Laboratory Laboratory Tests Test 09/15/16 05:39 White Blood Count 16.2x10^3/uL (4.0-11.0) Red Blood Count 4.14x10^6/uL (4.30-5.70) Hemoglobin 11.6g/dL (13.0-17.5) Hematocrit 35.5% (39.0-53.0) Mean Corpuscular Volume 86fL (79-100) Mean Corpuscular Hemoglobin 28pg (25-35) Mean Corpuscular Hemoglobin Concent 33g/dL (31-37) Red Cell Distribution Width 16.9% (11.5-14.5) Platelet Count 252x10^3/uL (140-400) Prothrombin Time 13.2SEC (11.7-14.0) Prothromb Time International Ratio 1.1 (0.8-1.1) Sodium Level 139mmol/L (136-145) Potassium Level 4.1mmol/L (3.5-5.1) Chloride Level 105mmol/L (98-107) Carbon Dioxide Level 24mmol/L (21-32) Anion Gap 10 (6-14) Blood Urea Nitrogen 18mg/dL (8-26) Creatinine 0.8mg/dL (0.7-1.3) Estimated GFR (Cockcroft-Gault) 98.9 BUN/Creatinine Ratio 23 (6-20) Glucose Level 124mg/dL (70-99) Calcium Level 8.5mg/dL (8.5-10.1) Total Bilirubin 0.3mg/dL (0.2-1.0) Aspartate Amino Transf (AST/SGOT) 8U/L (15-37) Alanine Aminotransferase (ALT/SGPT) 12U/L (16-63) Alkaline Phosphatase 65U/L (46-116) Total Protein 6.1g/dL (6.4-8.2) Albumin 2.8g/dL (3.4-5.0) Albumin/Globulin Ratio 0.8 (1.0-1.7) Medication Medications Current Medications Bacitracin 14 domenica STK-MED ONCE TP Last administered on 09/15/16 10:33; Start at 06:43; Stop 09/15/16 at 06:44; Status DC Bacitracin 98630 unit/Sodium Chloride 1,000 ml @ 1,000 mls/hr 1X PERIOP ONCE IRR Last administered on 09/15/16 10:33; Start 09/15/16 at 08:00; Stop 09/15/16 at 08:59; Status DC Cefazolin Sodium/ Dextrose 50 ml @ 100 mls/hr 1X ONCE IV ; Start 09/15/16 at 09 :15; Stop 09/15/16 at 09:44; Status UNV Cefazolin Sodium/ Dextrose 50 ml @ As Directed STK-MED ONCE IV ; Start 09/15/16 at 09:12; Stop 09/15/16 at 09:13; Status DC Cefazolin Sodium/ Dextrose (Ancef 2gm Premix) 50 ml @ 100 mls/hr 1X ONCE IV Last administered on 09/15/16 10:11; Start 09/15/16 at 09:30; Stop 09/15/16 at 09: 59; Status DC Cellulose 1 each STK-MED ONCE .ROUTE Last administered on 09/15/16 10:33; Start 09/15/16 at 10:13; Stop 09/15/16 at 10:14; Status DC Dexamethasone Sodium Phosphate (Decadron) 20 mg STK-MED ONCE .ROUTE ; Start 09/15 at 08:54; Stop 09/15/16 at 08:55; Status DC Fentanyl Citrate (Fentanyl 2ml Vial) 25 mcg PRN Q5MIN PRN IV MILD PAIN Last administered on 09/14/16 21:15; Start 09/15/16 at 07:00; Stop 09/16/16 at 06:59 Fentanyl Citrate (Fentanyl 2ml Vial) 50 mcg PRN Q1HR PRN IV SEVERE PAIN; Start 09/15/16 at 14:15 Fentanyl Citrate (Fentanyl 2ml Vial) 50 mcg PRN Q5MIN PRN IV MODERATE PAIN Last administered on 09/15/16 15:10; Start 09/15/16 at 07:00; Stop 09/16/16 at 06: 59 Fentanyl Citrate (Fentanyl 2ml Vial) 100 mcg STK-MED ONCE .ROUTE ; Start at 08:54; Stop 09/15/16 at 08:55; Status DC Fentanyl Citrate 25 mcg 25 mcg PRN Q1HR PRN IV SEVERE PAIN; Start 09/15/16 at 14 :15; Stop 09/15/16 at 14:35; Status DC Fentanyl Citrate 50 mcg 50 mcg PRN Q2HR PRN IV SEVERE PAIN Last administered on 09/15/16 04:29; Start 09/14/16 at 23:15; Stop 09/15/16 at 14:35; Status DC Gadobutrol (Gadavist) 6 mmol 1X ONCE IV Last administered on 09/15/16 08:43; Start 09/15/16 at 08:15; Stop 09/15/16 at 08:19; Status DC Gelatin (Gelfoam Size 100) 1 each STK-MED ONCE .ROUTE ; Start 09/15/16 at 06:42 ; Stop 09/15/16 at 06:43; Status DC Gelatin (Gelfoam Size 100) 1 each STK-MED ONCE .ROUTE ; Start 09/15/16 at 10:14 ; Stop 09/15/16 at 10:15; Status DC Gelatin (Gelfoam Powder) 1 gm STK-MED ONCE .ROUTE Last administered on 10:33; Start 09/15/16 at 06:42; Stop 09/15/16 at 06:43; Status DC Hydromorphone HCl (Dilaudid) 0.5 mg PRN Q10MIN PRN IV SEVERE PAIN, Second choice Last administered on 09/15/16 14:05; Start 09/15/16 at 07:00; Stop at 06:59 Irrigating Solution (Duovisc Kit) 1 kit STK-MED ONCE .ROUTE ; Start 09/15/16 at 12:58; Stop 09/15/16 at 12:59; Status DC Lactated Ringer's (Iv Lactated Ringers) 1,000 ml @ 0 mls/hr Q0M IV Last administered on 09/15/16 09:16; Start 09/15/16 at 07:00; Stop 09/15/16 at 18:59 Lidocaine HCl 2 ml 1X PRN PRN ID IV START; Start 09/15/16 at 07:00; Stop at 06:59 Lidocaine HCl 100 mg STK-MED ONCE .ROUTE ; Start 09/15/16 at 08:54; Stop 09/15/16 at 08:55; Status DC Lidocaine/ Epinephrine (Xylocaine 1%-Epi 1:100,000) 20 ml STK-MED ONCE .ROUTE Last administered on 09/15/16 10:33; Start 09/15/16 at 06:41; Stop 09/15/16 at 06: 42; Status DC Mannitol (Mannitol) 12.5 g STK-MED ONCE .ROUTE ; Start 09/15/16 at 10:14; Stop at 10:15; Status DC Midazolam HCl 2 mg 2 mg STK-MED ONCE .ROUTE ; Start 09/15/16 at 09:02; Stop at 09:03; Status DC Morphine Sulfate 1 mg 1 mg PRN Q10MIN PRN IV SEVERE PAIN; Start 09/15/16 at 07: 00; Stop 09/16/16 at 06:59 Multi-Ingred Cream/Lotion/Oil/ Oint (Artificial Tears Eye Oint) 7 domenica STK-MED ONCE .ROUTE ; Start 09/15/16 at 13:19; Stop 09/15/16 at 13:20; Status DC Nicardipine HCl/ Sodium Chloride (Cardene/Iv Sodium Chloride 0.9% 250ml) 270 ml @ 27 mls/hr ONCE ONCE IV Last administered on 09/15/16 14:26; Start 09/15/16 at 14:30; Stop 09/16/16 at 00:29 Ondansetron HCl (Zofran) 4 mg PRN Q6HRS PRN IV Nausea; Start 09/15/16 at 07:00; Stop 09/16/16 at 06:59 Ondansetron HCl 4 mg 4 mg STK-MED ONCE .ROUTE ; Start 09/15/16 at 08:54; Stop 09/15/16 at 08:55; Status DC Phenylephrine HCl 1 mg STK-MED ONCE IV ; Start 09/15/16 at 10:34; Stop 09/15/16 at 10:35; Status DC Potassium Chloride/Dextrose/ Sod Cl 1,000 ml @ 40 mls/hr 1X ONCE IV Last administered on 09/14/16 17:30; Start 09/14/16 at 17:30; Stop 09/15/16 at 18:29 Potassium Chloride/Dextrose/ Sod Cl (KCl 20 Meq In D5W-1/2 NS) 1,000 ml @ 40 mls/hr Q24H IV Last administered on 09/14/16 23:33; Start 09/14/16 at 23:30 Potassium Chloride/Dextrose/ Sodium Chloride (Iv D5% - 1/2 NS) 1,010 ml @ 40 mls/hr Q24H IV ; Start 09/14/16 at 23:15; Status UNV Povidone Iodine ( Betadine Oint) 28 domenica STK-MED ONCE TP ; Start 09/15/16 at 06:43 ; Stop 09/15/16 at 06:44; Status DC Prochlorperazine Edisylate 5 mg 5 mg PACU PRN PRN IV NAUSEA; Start 09/15/16 at 07:00; Stop 09/16/16 at 06:59 Propofol 50 ml @ As Directed STK-MED ONCE IV ; Start 09/15/16 at 08:54; Stop 09/15 at 08:55; Status DC Propofol (Diprivan) 20 ml @ As Directed STK-MED ONCE IV ; Start 09/15/16 at 08:54 ; Stop 09/15/16 at 08:55; Status DC Remifentanil HCl (Ultiva) 2 mg STK-MED ONCE IV ; Start 09/15/16 at 08:54; Stop at 08:55; Status DC Rocuronium [place] (Zemuron) 50 mg STK-MED ONCE .ROUTE ; Start 09/15/16 at 09:00 ; Stop 09/15/16 at 09:01; Status DC Sodium Chloride (Sodium Chloride) 50 ml STK-MED ONCE IJ ; Start 09/15/16 at 08:55 ; Stop 09/15/16 at 08:56; Status DC Thrombin 20,000 unit STK-MED ONCE TP Last administered on 09/15/16t 10:33; Start 09/15/16 at 06:42; Stop 09/15/16 at 06:43; Status DC Comment Review of Relevant I have reviewed the following items samara (where applicable) has been applied. BOYD SURESH MD Sep 15, 2016 16:20
--- NOTE | 2016-09-15 20:00 | CONS ---
DATE OF CONSULTATION: 09/14/2016 ONCOLOGY CONSULT NOTE REFERRING PROVIDER: Dr. Bailon REASON FOR CONSULTATION: Esophageal cancer with BUSINESS SERVICES REPRESENTATIVE mass. HISTORY OF PRESENT ILLNESS: The patient is a 61-year-old male who lives in [place], [place] and had previously received Oncology there for what sounds like a locally advanced esophageal cancer. He has been treated by Dr. Douglas Aragon with concurrent chemoradiation, followed by esophagectomy approximately 5 months ago. He had been feeling well and has maintained a very healthy weight since his surgery. He was actually in town after returning from a trip to [place] with his brother. He presented with a 1 month history of persistent headaches, nausea, vomiting, ataxia and some mild memory issues. He was also noted to have hypertensive urgency in the Emergency Room. CT imaging of the head followed by MRI of the head confirmed a 4.6 cm right cerebellar mass with multiple very small probable metastases measuring 0.1 to 0.4 cm. He has been started on steroids and has improvement in his headaches. Neurosurgery has evaluated him and is planning to attempt resection of this large mass tomorrow morning. CT of the chest, abdomen and pelvis was completed this morning with reports pending. CBC and BMP are unremarkable. PAST MEDICAL HISTORY: Esophageal cancer, COPD. PAST SURGICAL HISTORY: Herniorrhaphy, cholecystectomy, esophagectomy. FAMILY HISTORY: Mom from a stroke. Dad with COPD. He has a brother who has hypertension. He also has seven other siblings who are all fairly healthy. SOCIAL HISTORY: He has 4 kids. He has previously smoked 2 packs per day, but quit in 1991. He denies any tobacco, alcohol or drug use now. ALLERGIES: No known drug allergies. CURRENT MEDICATIONS: Tylenol, Decadron, fentanyl, Dilaudid, Ativan, morphine, Zofran, Percocet, Compazine. REVIEW OF SYSTEMS: Twelve-point review of systems completed and unremarkable with the exception of the headaches, nausea, vomiting, balance problems, memory issues, otherwise unremarkable. No abdominal pain. PHYSICAL EXAMINATION: VITAL SIGNS: Temperature 97.9, pulse 62, respiratory rate 18, blood pressure 115/74, 95% O2 on room air. GENERAL: He is alert and oriented. He appears overall very healthy with no distress at this time. HEENT: Extraocular muscle strength is intact. Mucous membranes are moist. No scleral icterus. CARDIOVASCULAR: Heart is regular in rhythm and rate. LUNGS: Clear to auscultation bilaterally. ABDOMEN: Soft and nontender. EXTREMITIES: No edema. NEUROLOGIC: No focal cranial deficits. MUSCULOSKELETAL: Strength globally 5/5 in bilateral upper and lower extremities. IMAGING AND LABORATORY DATA: Pertinent CBC, BMP, CT head and MRI findings reviewed as below. ASSESSMENT AND PLAN: The patient is a 61-year-old male with the following medical problems: 1. History of locally advanced esophageal cancer status post concurrent neoadjuvant chemoradiation followed by esophagectomy in [place], [place] [address] chest, abdomen and pelvis has been ordered and it is pending this morning. I will follow up on these results. I have also requested oncology records, scans and pathology from his primary oncologist, Dr. Aragon in [place], [place]. 2. BUSINESS SERVICES REPRESENTATIVE masses. He is planning to undergo resection of the prominent right cerebellar mass tomorrow morning. We will follow up on the pending pathology. Please continue the steroids. We discussed that as this is a probable malignancy. When he is deemed clinically stable for discharge, he can return to the care of his primary oncologist much closer to home. Thank you for allowing us to participate in his care. I will continue to follow along while he remains admitted. ERIC KAY DO DR: CLAIRE/nancy JOB#: [id number] / [id number] YOLANDA
[2016-09-15] MEDS ORDERED: KETOROLAC TROMETHAMINE 30 MG/ML SYRINGE. IV ONE (20:45)
[2016-09-15] MEDS: POTASSIUM CL 20MEQ D5-0.45NACL 1,000 ML IV SCH (23:30)
[2016-09-16] VITALS (22 sets, daily range): BP systolic 120–169; BP diastolic 68–88
[2016-09-16] MEDS: HYDROMORPHONE 2 MG/ML VIAL. IV PRN (01:48)
[2016-09-16] MEDS: DEXAMETHASONE SOD PHOS 4 MG/ML VIAL IV SCH ×4 (01:53→19:07)
[2016-09-16] MEDS: KETOROLAC 15 MG/ML VIAL. IV PRN ×3 (04:05→16:34)
[2016-09-16] MEDS: HYDROMORPHONE 2 MG/ML VIAL. IVP PRN ×4 (05:53→22:34)
[2016-09-16] MEDS: FENTANYL PF 100 MCG/2 ML VIAL. IV PRN ×3 (07:30→17:59)
--- NOTE | 2016-09-16 09:05 | PDOC ---
SUBJECTIVE Subjective Reports some headache and feeling of dysequilibrium overnight. Reports improved this AM. Denies other acute changes at this time. OBJECTIVE Vital Signs Vital Signs Date Time Temp Pulse Resp B/P Pulse Ox O2 Delivery O2 Flow Rate FiO2 09/16/16 08:01 09/16/16 08:00 98.3 56 12 134/72 100 Nasal Cannula 3.0 98.3 09/16/16 07:30 100 Nasal Cannula 3.0 09/16/16 07:00 58 14 125/73 100 Nasal Cannula 3.0 09/16/16 06:00 59 12 128/75 100 Nasal Cannula 3.0 09/16/16 05:00 56 11 139/74 100 Nasal Cannula 3.0 09/16/16 04:00 Nasal Cannula 3.0 09/16/16 04:00 58 13 132/72 100 Nasal Cannula 3.0 09/16/16 04:00 98.0 98.0 09/16/16 03:00 58 12 120/70 100 Nasal Cannula 3.0 09/16/16 02:00 58 13 122/72 100 Nasal Cannula 3.0 09/16/16 01:00 64 15 133/73 100 Nasal Cannula 3.0 09/16/16 00:00 Nasal Cannula 3.0 09/16/16 00:00 98.1 98.1 09/16/16 00:00 69 16 142/71 100 Nasal Cannula 3.0 09/15/16 23:00 81 14 122/61 100 Nasal Cannula 3.0 09/15/16 22:00 78 16 133/67 100 Nasal Cannula 3.0 09/15/16 21:00 106 18 149/71 100 Nasal Cannula 3.0 09/15/16 20:00 86 16 142/71 100 Nasal Cannula 3.0 09/15/16 20:00 90 09/15/16 20:00 Nasal Cannula 3.0 09/15/16 20:00 98.3 98.3 09/15/16 19:00 106 24 149/74 100 Nasal Cannula 3.0 09/15/16 18:00 106 24 138/67 100 Nasal Cannula 3.0 09/15/16 17:20 16 100 Nasal Cannula 2.0 09/15/16 17:00 92 18 143/67 100 Nasal Cannula 3.0 09/15/16 16:54 15 100 Nasal Cannula 2.0 09/15/16 16:24 16 100 Room Air 10.0 09/15/16 16:00 90 144/70 09/15/16 16:00 86 16 144/70 100 Simple Mask 10.0 09/15/16 16:00 Mask 10.0 09/15/16 15:40 16 100 Simple Mask 10.0 09/15/16 15:30 88 15 159/70 100 Simple Mask 10.0 09/15/16 15:10 16 100 Room Air 10.0 09/15/16 15:00 92 21 169/77 100 Simple Mask 10.0 09/15/16 14:45 78 16 161/95 100 Simple Mask 10.0 09/15/16 14:30 68 18 207/95 100 Simple Mask 10.0 09/15/16 14:15 68 14 211/100 100 Simple Mask 10.0 09/15/16 14:15 16 100 Room Air 10.0 09/15/16 14:05 20 100 Simple Mask 10.0 09/15/16 14:00 98.4 68 16 200/101 99 Simple Mask 10.0 98.4 09/15/16 09:08 97.6 65 140/74 96 Room Air 97.6 I & O Intake and Output 09/16/16 07:00 Intake Total 321 ml Output Total 1150 ml Balance -829 ml Intake Oral 0 ml IV Total 321 ml Output Urine Total 1150 ml PHYSICAL EXAM Physical Exam AA, pupils equal, EOMI without diplopia, RAMESH 5/5, sensation intact LT, head dressing c/d/i ASSESSMENT/PLAN Assessment/Plan POD 1 suboccipital craniectomy for cerebellar mass -appears neurologically stable this AM -routine post-op MRI today -if imaging okay, then gradually advance activity/PT/OT/ST and will consider downgrade from ICU soon Problems: BHARTI VALADEZ MD Sep 16, 2016 09:05
[2016-09-16] MEDS: LEVETIRACETAM 500 MG in IV NORMAL SALINE 100ML 100 ML IV SCH ×2 (09:33→20:42)
[2016-09-16] MEDS: MORPHINE ER 15 MG TABLET.ER PO SCH ×2 (09:40→19:42)
[2016-09-16] MEDS ORDERED: ONDANSETRON PF 4 MG/2 ML VIAL. ONE (10:42)
[2016-09-16] MEDS ORDERED: GADOBUTROL 7.5 MMOL/7.5 ML VIAL IV ONE (11:00)
[2016-09-16] MEDS ORDERED: ONDANSETRON PF 4 MG/2 ML VIAL. IV ONE (11:00)
--- NOTE | 2016-09-16 12:04 | RAD ---
PROCEDURE MRI brain without and with contrast. HISTORY Post tumor excision x1 day, suboccipital craniectomy for mass TECHNIQUE Multiplanar, multi sequential pre and post contrast MR imaging was performed of the brain. Contrast: 6 cc Gadavist COMPARISON 09/13/2016 FINDINGS There has been interval right suboccipital craniectomy there has been resection of the previously seen right cerebellar mass, small nodule of enhancement anteriorly on the order of 0.5 cm as seen axial image 5 series 12 although most of the mass of resected. There are now blood products at the resection cavity site signified by T1 hyperintense signal and decreased signal on the gradient echo sequence. There is also focus of restricted diffusion of the residual parenchyma anterior to the resection cavity of the right cerebellum on the order of 1.2 centimeters in size, other mild restricted diffusion at the periphery of the resection cavity likely due to component of blood products. There is a lesser degree of mass effect and distortion upon the 4th ventricle. There is now left anterior pneumocephalus with mild mass effect upon the left frontal parenchyma. As seen and described previously, there are other approximately 10 other foci of abnormal intra-axial enhancement, small focus of the left mejía radiata better seen on this exam on the order of 0.2 cm. There is also likely a punctate focus of enhancement right parietal lobe axial image 17 better seen on this exam. There is no midline shift. There is increased distortion of the left frontal horn presumably due to pneumocephalus. There are again multiple other scattered foci of nonenhancing T2 and FLAIR hyperintense signal the supratentorial white matter bilaterally. There is some patchy fluid of the mastoid air cells greater on the right, also mild paranasal sinus mucosal thickening. IMPRESSION 1. There has been interval right suboccipital craniectomy with resection of the previously seen right cerebellar mass, now small focus of nodular enhancement anteriorly. There is a lesser degree of mass effect and distortion upon the 4th ventricle. There are now blood products at the resection cavity site. There is also focus of restricted diffusion at the anterior margin of the resection cavity of the right cerebellar, suggestive of focus of acute ischemia. There are other intra axial enhancing lesions/metastases. There is now left frontal pneumocephalus with some mild compression upon the left frontal parenchyma. 2. Other multifocal nonenhancing T2 and FLAIR hyperintense signal abnormality of the supratentorial white matter is nonspecific although most likely due to chronic microvascular ischemic disease. Electronically signed by: Иван Ugalde MD (Sep 16, 2016 12:02:54)
[2016-09-16] MEDS: OXYCODONE/APAP 10/325 TABLET. PO PRN ×2 (14:48→15:40)
[2016-09-16] MEDS: METHOCARBAMOL 750 MG TABLET PO PRN (15:35)
--- NOTE | 2016-09-16 17:46 | PDOC ---
PROGRESS NOTES Assessment Assessment Large right most likely cerebellar metastatic mass with hemorrhage and mass effect and effacement of the 4th ventricle. Multiple small metastatic lesions in bilateral hemispheres. Cerebral edema. Headache ICP Vomiting Esophageal cancer s/p surgical resection about 5 months ago. Received chemo and radiation therapy before surgery. Right cerebellar tonsillar ectopia. GERD RECOMMENDATIONS/PLAN: Decadron 4 mg IV q6h. Keppra 500 mg bid. Ativan 2 mg IV if has seizure. BP control. pain control. Neurosurgery consulted. Right cerebellar mass resection on 09/15. Oncology on team Discussed with his daughter at bedside in ICU on 09/16/16. HISTORY OF THE PRESENT ILLNESS: 61-y-old male patient with Hx of esophageal cancer and received presurgical chemo and radiation therapies then surgery about 5 months ago. He developed symptoms of nausea, vomiting and headaches this time and metastatic intracranial disease with large hemorrhage in right cerebellar was evidential. He is doing fine on 09/15 after NS surgery for right cerebellar mass resection. PAST MEDICAL HISTORY: Please see above. PAST SURGERY HISTORY: Cholecystectomy Esophagectomy ALLERGY: Reviewed. MEDICATIONS: Refer to [facility] FAMILY HISTORY: Non contributory. SOCIAL HISTORY: Denies current smoking, drinking, and illicit drug use. He smoked 2 pack of cigarettes a day for many years but quit in 1991. REVIEW OF SYSTEMS: Constitutional: Mildly malnutrition. Head: No recent traumatic brain or head injury. Skin: No edema, or rash. Ear: No infection, tinnitus. Eyes: No vision loss or color blindness. Nose: No bleeding or purulent discharges. Hearing: No hearing decrease. Neck: No injury. Cardiac: No VT, arrhythmia. Pulmonary: No COPD. GI: GERD. Urinary/genital: No dysuria, hematuria, incontinence, urinary retention. Endocrinologic: No cousin face, craniofacial dysmorphism, polydactyly, goiter. Skeletomuscular: No muscular atrophy, deformity. Neurological: see HP. Psychiatric: Denies current drug use/abuse. Otherwise, not [id number] review of systems. PHYSICAL EXAMINATION: General appearance is in acute distress. HEENT: Normocephalic and nontraumatic. Eyes, nose, ears, and throat are unremarkable. Neck is supple. No lymphadenopathy. No crepitus. Cardiovascular: S1, S2, regular rate and rhythm. Pulmonary: Clear to auscultation bilaterally. Abdomen: Bowel sounds are positive. Extremities: No rash, lesions, or edema. No restriction of range of motion NEUROLOGICAL EXAMINATION: Awake. Oriented to time, place and person on 09/15. PERRL. EOMI. CN: no focal findings. Muscle tone: within normal. Muscle strength: 4+ DTR: 2 Plantar reflex: Flexor response bilaterally Gait: not examined in bed. Sensory exam: no acute abnormal findings. F-T-N test not accurate. Objective Objective Vital Signs Date Time Temp Pulse Resp B/P Pulse Ox O2 Delivery O2 Flow Rate FiO2 09/16/16 17:05 20 98 Nasal Cannula 3.0 09/16/16 13:00 62 147/84 09/16/16 12:00 98.3 98.3 Intake and Output 09/16/16 07:00 Intake Total 321 ml Output Total 1150 ml Balance -829 ml Intake Oral 0 ml IV Total 321 ml Output Urine Total 1150 ml Vitals Signs Vitals VS - Last 72 Hours, by Label Date Time Temp Pulse Resp B/P Pulse Ox O2 Delivery O2 Flow Rate FiO2 09/16/16 17:05 20 98 Nasal Cannula 3.0 09/16/16 16:40 21 98 Nasal Cannula 3.0 09/16/16 15:40 20 98 Nasal Cannula 3.0 09/16/16 14:48 25 99 Nasal Cannula 3.0 09/16/16 14:24 35 98 Nasal Cannula 3.0 09/16/16 13:40 22 99 Nasal Cannula 3.0 09/16/16 13:00 62 147/84 99 Nasal Cannula 3.0 09/16/16 12:15 22 99 Nasal Cannula 3.0 09/16/16 12:00 98.3 61 149/77 99 Nasal Cannula 3.0 98.3 09/16/16 12:00 Nasal Cannula 3.0 09/16/16 11:45 22 98 Nasal Cannula 3.0 09/16/16 11:00 60 99 Nasal Cannula 3.0 09/16/16 10:00 54 158/79 99 Nasal Cannula 3.0 09/16/16 09:40 20 99 Nasal Cannula 3.0 09/16/16 09:00 99 Nasal Cannula 3.0 09/16/16 08:01 09/16/16 08:00 98.3 56 12 134/72 100 Nasal Cannula 3.0 98.3 09/16/16 08:00 Nasal Cannula 3.0 09/16/16 07:30 100 Nasal Cannula 3.0 09/16/16 07:00 58 14 125/73 100 Nasal Cannula 3.0 09/16/16 06:00 59 12 128/75 100 Nasal Cannula 3.0 09/16/16 05:00 56 11 139/74 100 Nasal Cannula 3.0 09/16/16 04:00 Nasal Cannula 3.0 09/16/16 04:00 58 13 132/72 100 Nasal Cannula 3.0 09/16/16 04:00 98.0 98.0 09/16/16 03:00 58 12 120/70 100 Nasal Cannula 3.0 09/16/16 02:00 58 13 122/72 100 Nasal Cannula 3.0 09/16/16 01:00 64 15 133/73 100 Nasal Cannula 3.0 09/16/16 00:00 Nasal Cannula 3.0 09/16/16 00:00 98.1 98.1 09/16/16 00:00 69 16 142/71 100 Nasal Cannula 3.0 09/15/16 23:00 81 14 122/61 100 Nasal Cannula 3.0 09/15/16 22:00 78 16 133/67 100 Nasal Cannula 3.0 09/15/16 21:00 106 18 149/71 100 Nasal Cannula 3.0 09/15/16 20:00 86 16 142/71 100 Nasal Cannula 3.0 09/15/16 20:00 90 09/15/16 20:00 Nasal Cannula 3.0 09/15/16 20:00 98.3 98.3 09/15/16 19:00 106 24 149/74 100 Nasal Cannula 3.0 09/15/16 18:00 106 24 138/67 100 Nasal Cannula 3.0 09/15/16 17:20 16 100 Nasal Cannula 2.0 09/15/16 17:00 92 18 143/67 100 Nasal Cannula 3.0 09/15/16 16:54 15 100 Nasal Cannula 2.0 09/15/16 16:24 16 100 Room Air 10.0 09/15/16 16:00 90 144/70 09/15/16 16:00 86 16 144/70 100 Simple Mask 10.0 09/15/16 16:00 Mask 10.0 09/15/16 15:40 16 100 Simple Mask 10.0 09/15/16 15:30 88 15 159/70 100 Simple Mask 10.0 09/15/16 15:10 16 100 Room Air 10.0 09/15/16 15:00 92 21 169/77 100 Simple Mask 10.0 09/15/16 14:45 78 16 161/95 100 Simple Mask 10.0 09/15/16 14:30 68 18 207/95 100 Simple Mask 10.0 09/15/16 14:15 68 14 211/100 100 Simple Mask 10.0 09/15/16 14:15 16 100 Room Air 10.0 09/15/16 14:05 20 100 Simple Mask 10.0 09/15/16 14:00 98.4 68 16 200/101 99 Simple Mask 10.0 98.4 09/15/16 09:08 97.6 65 140/74 96 Room Air 97.6 09/15/16 08:00 Room Air 09/15/16 08:00 64 20 113/73 99 Room Air 09/15/16 07:34 14 96 Room Air 09/15/16 07:04 16 96 Room Air 09/15/16 07:00 97.8 65 20 123/76 95 Room Air 97.8 Medication Medications Current Medications Gadobutrol (Gadavist) 6 mmol 1X ONCE IV Last administered on 09/16/16 11:00; Start 09/16/16 at 11:00; Stop 09/16/16 at 11:01; Status DC Hydromorphone HCl (Dilaudid) 0.4 mg PRN Q4HRS PRN IVP MODERATE PAIN 2ND CHOICE Last administered on 09/16/16 17:05; Start 09/16/16 at 02:45 Ketorolac Tromethamine (Toradol) 15 mg PRN Q6HRS PRN IV PAIN Last administered on 09/16/16 16:34; Start 09/16/16 at 03:00; Stop 09/21/16 at 02:59 Ketorolac Tromethamine (Toradol) 30 mg 1X ONCE IV Last administered on 21:03; Start 09/15/16 at 20:45; Stop 09/15/16 at 20:46; Status DC Methocarbamol (Robaxin) 750 mg PRN Q6HRS PRN PO MUSCLE SPASMS Last administered on 09/16/16 15:35; Start 09/16/16 at 15:30 Ondansetron HCl (Zofran) 4 mg 1X ONCE IV Last administered on 09/16/16t 11:00; Start 09/16/16 at 11:00; Stop 09/16/16 at 11:01; Status DC Ondansetron HCl (Zofran) 4 mg STK-MED ONCE .ROUTE ; Start 09/16/16 at 10:42; Stop 09/16/16 at 10:43; Status DC Oxycodone/ Acetaminophen (Percocet 10/325) 2 tab PRN Q4HRS PRN PO MODERATE PAIN ; Start 09/16/16 at 15:30 Comment Review of Relevant I have reviewed the following items samara (where applicable) has been applied. BOYD SURESH MD Sep 16, 2016 17:46
--- NOTE | 2016-09-16 20:50 | PDOC ---
PROGRESS NOTES Chief Complaint Chief Complaint CC: HEADACHES A/P Recent esophageal cancer, presents with a hemorrhagic right cerebellar mass, suspected malignant lesions, s/p resection of right cerebellar mass 09/15/16 HTN urgency controlled Plan s/p resection of right cerebellar mass tod Pain control IV Dilaudid follow NS recommendations. MR brain today IV Decadron nicardipine gtt, goals sbp < 140 IV Keppra IV Zofran PRN Neuro checks per protocol ICU stay History of Present Illness History of Present Illness seen this after noon family at bedside no fever doing better Vitals Vitals Vital Signs Date Time Temp Pulse Resp B/P Pulse Ox O2 Delivery O2 Flow Rate FiO2 09/16/16 20:20 Nasal Cannula 2.0 09/16/16 20:20 58 122/81 100 09/16/16 19:00 97.8 97.8 09/16/16 17:59 22 Physical Exam General: Alert, Oriented X3 Heart: Normal S1, Normal S2 Lungs: Clear Abdomen: Normal bowel sounds, Soft Extremities: No clubbing, No cyanosis, No edema Assessment and Plan Assessmemt and Plan Problems Medical Problems: (1) Cerebellar mass Status: Acute (2) Intracranial hemorrhage Status: Acute Problems: Comment Review of Relevant I have reviewed the following items smaara (where applicable) has been applied. Labs Laboratory Tests Test 09/15/16 05:39 White Blood Count 16.2x10^3/uL (4.0-11.0) Red Blood Count 4.14x10^6/uL (4.30-5.70) Hemoglobin 11.6g/dL (13.0-17.5) Hematocrit 35.5% (39.0-53.0) Mean Corpuscular Volume 86fL (79-100) Mean Corpuscular Hemoglobin 28pg (25-35) Mean Corpuscular Hemoglobin Concent 33g/dL (31-37) Red Cell Distribution Width 16.9% (11.5-14.5) Platelet Count 252x10^3/uL (140-400) Prothrombin Time 13.2SEC (11.7-14.0) Prothromb Time International Ratio 1.1 (0.8-1.1) Sodium Level 139mmol/L (136-145) Potassium Level 4.1mmol/L (3.5-5.1) Chloride Level 105mmol/L (98-107) Carbon Dioxide Level 24mmol/L (21-32) Anion Gap 10 (6-14) Blood Urea Nitrogen 18mg/dL (8-26) Creatinine 0.8mg/dL (0.7-1.3) Estimated GFR (Cockcroft-Gault) 98.9 BUN/Creatinine Ratio 23 (6-20) Glucose Level 124mg/dL (70-99) Calcium Level 8.5mg/dL (8.5-10.1) Total Bilirubin 0.3mg/dL (0.2-1.0) Aspartate Amino Transf (AST/SGOT) 8U/L (15-37) Alanine Aminotransferase (ALT/SGPT) 12U/L (16-63) Alkaline Phosphatase 65U/L (46-116) Total Protein 6.1g/dL (6.4-8.2) Albumin 2.8g/dL (3.4-5.0) Albumin/Globulin Ratio 0.8 (1.0-1.7) Medications Current Medications Sodium Chloride (Iv Sodium Chloride 0.9% 1000ml Bag) 1,000 ml @ 1,000 mls/hr Q1H IV Last administered on 09/13/16 11:20; Start 09/13/16 at 10:44; Stop at 11:43; Status DC Fentanyl Citrate (Fentanyl 2ml Vial) 50 mcg 1X ONCE IV Last administered on 11:20; Start 09/13/16 at 10:45; Stop 09/13/16 at 10:53; Status DC Meclizine HCl 25 mg 25 mg 1X ONCE PO Last administered on 09/13/16 11:19; Start 09/13/16 at 10:45; Stop 09/13/16 at 10:53; Status DC Nicardipine HCl/ Sodium Chloride (Cardene/Iv Sodium Chloride 0.9% 250ml) 270 ml @ 0 mls/hr CONT PRN IV SEE I/O RECORD; Start 09/13/16 at 11:15; Stop 09/13/16 at 11:22; Status DC Dexamethasone Sodium Phosphate 10 mg 10 mg 1X ONCE IV Last administered on 09/13 11:33; Start 09/13/16 at 12:00; Stop 09/13/16 at 12:01; Status DC Nicardipine HCl/ Sodium Chloride (Cardene/Iv Sodium Chloride 0.9% 250ml) 270 ml @ 0 mls/hr CONT PRN IV SEE I/O RECORD Last administered on 09/13/16 22:20; Start 09/13/16 at 12:00 Ondansetron HCl (Zofran) 4 mg PRN Q8HRS PRN IV NAUSEA/VOMITING Last administered on 09/14/16 08:31; Start 09/13/16 at 11:30; Stop 09/14/16 at 11:29; Status DC Fentanyl Citrate (Fentanyl 2ml Vial) 50 mcg PRN Q1HR PRN IV PAIN Last administered on 09/14/16 08:16; Start 09/13/16 at 11:30; Stop 09/14/16 at 11:29; Status DC Acetaminophen (Tylenol) 650 mg PRN Q4HRS PRN PO FEVER; Start 09/13/16 at 11:30; Stop 09/14/16 at 11:29; Status DC Dexamethasone Sodium Phosphate (Decadron) 2 mg Q6HRS IV ; Start 09/13/16 at 18:00 ; Stop 09/13/16 at 18:00; Status DC Gadobutrol (Gadavist) 7.5 mmol 1X ONCE IV Last administered on 09/13/16 12:56 ; Start 09/13/16 at 13:00; Stop 09/13/16 at 13:01; Status DC Dexamethasone Sodium Phosphate 4 mg 4 mg Q6HRS IV Last administered on 19:07; Start 09/13/16 at 18:00 Levetiracetam/ Sodium Chloride (Keppra/Iv Sodium Chloride 0.9% 100ml) 105 ml @ 400 mls/hr Q12HR IV Last administered on 09/16/16 20:42; Start 09/13/16 at 14:30 Lorazepam (Ativan) 2 mg PRN Q6HRS PRN IV ANXIETY / AGITATION Last administered on 09/14/16 11:38; Start 09/13/16 at 14:15 Oxycodone/ Acetaminophen (Percocet 10/325) 1 tab PRN Q4HRS PRN PO pain Last administered on 09/16/16 15:40; Start 09/13/16 at 15:00 Morphine Sulfate 15 mg 15 mg BID PO Last administered on 09/16/16 19:42; Start 09/13/16 at 15:00 Potassium Chloride/Dextrose/ Sod Cl (KCl 20 Meq In D5W-1/2 NS) 1,000 ml @ 100 mls/hr 1X ONCE IV Last administered on 09/13/16 16:33; Start 09/13/16 at 15:00 ; Stop 09/14/16 at 00:59; Status DC Iohexol (Omnipaque 300 Mg/ml) 75 ml 1X ONCE IV Last administered on 09/14/16 08:40; Start 09/14/16 at 08:00; Stop 09/14/16 at 08:01; Status DC Info (Do NOT chart on this entry -- for MONITORING) 1 each PRN DAILY PRN MC SEE COMMENTS; Start 09/14/16 at 08:00; Stop 09/16/16 at 07:59; Status DC Ondansetron HCl (Zofran) 4 mg PRN Q6HRS PRN IV Nausea; Start 09/15/16 at 07:00; Stop 09/16/16 at 06:59; Status DC Fentanyl Citrate (Fentanyl 2ml Vial) 25 mcg PRN Q5MIN PRN IV MILD PAIN Last administered on 09/14/16 21:15; Start 09/15/16 at 07:00; Stop 09/16/16 at 06:59; Status DC Fentanyl Citrate (Fentanyl 2ml Vial) 50 mcg PRN Q5MIN PRN IV MODERATE PAIN Last administered on 09/15/16 15:10; Start 09/15/16 at 07:00; Stop 09/16/16 at 06: 59; Status DC Morphine Sulfate 1 mg 1 mg PRN Q10MIN PRN IV SEVERE PAIN; Start 09/15/16 at 07: 00; Stop 09/16/16 at 02:43; Status DC Lactated Ringer's (Iv Lactated Ringers) 1,000 ml @ 0 mls/hr Q0M IV Last administered on 09/15/16 09:16; Start 09/15/16 at 07:00; Stop 09/15/16 at 18:59; Status DC Lidocaine HCl 2 ml 1X PRN PRN ID IV START; Start 09/15/16 at 07:00; Stop at 06:59; Status DC Hydromorphone HCl (Dilaudid) 0.5 mg PRN Q10MIN PRN IV SEVERE PAIN, Second choice Last administered on 09/16/16 01:48; Start 09/15/16 at 07:00; Stop at 02:43; Status DC Prochlorperazine Edisylate (Compazine) 5 mg PACU PRN PRN IV NAUSEA; Start at 07:00; Stop 09/16/16 at 06:59; Status DC Fentanyl Citrate 25 mcg 25 mcg PRN Q1HR PRN IV MODERATE PAIN 1ST CHOICE Last administered on 09/16/16 17:59; Start 09/14/16 at 12:30 Bacitracin 16040 unit/Sodium Chloride 1,000 ml @ 1,000 mls/hr 1X PERIOP ONCE IRR Last administered on 09/15/16 10:33; Start 09/15/16 at 08:00; Stop 09/15/16 at 08:59; Status DC Potassium Chloride/Dextrose/ Sod Cl 1,000 ml @ 40 mls/hr 1X ONCE IV Last administered on 09/14/16 17:30; Start 09/14/16 at 17:30; Stop 09/15/16 at 18:29; Status DC Potassium Chloride/Dextrose/ Sodium Chloride (Iv D5% - 1/2 NS) 1,010 ml @ 40 mls/hr Q24H IV ; Start 09/14/16 at 23:15; Status UNV Fentanyl Citrate 50 mcg 50 mcg PRN Q2HR PRN IV SEVERE PAIN Last administered on 09/15/16 04:29; Start 09/14/16 at 23:15; Stop 09/15/16 at 14:35; Status DC Potassium Chloride/Dextrose/ Sod Cl (KCl 20 Meq In D5W-1/2 NS) 1,000 ml @ 40 mls/hr Q24H IV Last administered on 09/14/16 23:33; Start 09/14/16 at 23:30; Stop 09/16/16 at 19:44; Status DC Lidocaine/ Epinephrine (Xylocaine 1%-Epi 1:100,000) 20 ml STK-MED ONCE .ROUTE Last administered on 09/15/16 10:33; Start 09/15/16 at 06:41; Stop 09/15/16 at 06: 42; Status DC Thrombin 20,000 unit STK-MED ONCE TP Last administered on 09/15/16 10:33; Start 09/15/16 at 06:42; Stop 09/15/16 at 06:43; Status DC Gelatin (Gelfoam Powder) 1 gm STK-MED ONCE .ROUTE Last administered on 10:33; Start 09/15/16 at 06:42; Stop 09/15/16 at 06:43; Status DC Gelatin (Gelfoam Size 100) 1 each STK-MED ONCE .ROUTE ; Start 09/15/16 at 06:42 ; Stop 09/15/16 at 06:43; Status DC Povidone Iodine ( Betadine Oint) 28 domenica STK-MED ONCE TP ; Start 09/15/16 at 06:43 ; Stop 09/15/16 at 06:44; Status DC Bacitracin 14 domenica STK-MED ONCE TP Last administered on 09/15/16 10:33; Start at 06:43; Stop 09/15/16 at 06:44; Status DC Gadobutrol (Gadavist) 6 mmol 1X ONCE IV Last administered on 09/15/16 08:43; Start 09/15/16 at 08:15; Stop 09/15/16 at 08:19; Status DC Dexamethasone Sodium Phosphate (Decadron) 20 mg STK-MED ONCE .ROUTE ; Start 09/15 at 08:54; Stop 09/15/16 at 08:55; Status DC Ondansetron HCl 4 mg 4 mg STK-MED ONCE .ROUTE ; Start 09/15/16 at 08:54; Stop 09/15/16 at 08:55; Status DC Propofol 50 ml @ As Directed STK-MED ONCE IV ; Start 09/15/16 at 08:54; Stop 09/15 at 08:55; Status DC Propofol (Diprivan) 20 ml @ As Directed STK-MED ONCE IV ; Start 09/15/16 at 08:54 ; Stop 09/15/16 at 08:55; Status DC Lidocaine HCl 100 mg STK-MED ONCE .ROUTE ; Start 09/15/16 at 08:54; Stop 09/15/16 at 08:55; Status DC Fentanyl Citrate (Fentanyl 2ml Vial) 100 mcg STK-MED ONCE .ROUTE ; Start at 08:54; Stop 09/15/16 at 08:55; Status DC Remifentanil HCl (Ultiva) 2 mg STK-MED ONCE IV ; Start 09/15/16 at 08:54; Stop at 08:55; Status DC Sodium Chloride (Sodium Chloride) 50 ml STK-MED ONCE IJ ; Start 09/15/16 at 08:55 ; Stop 09/15/16 at 08:56; Status DC Rocuronium [place] (Zemuron) 50 mg STK-MED ONCE .ROUTE ; Start 09/15/16 at 09:00 ; Stop 09/15/16 at 09:01; Status DC Midazolam HCl 2 mg 2 mg STK-MED ONCE .ROUTE ; Start 09/15/16 at 09:02; Stop at 09:03; Status DC Cefazolin Sodium/ Dextrose 50 ml @ As Directed STK-MED ONCE IV ; Start 09/15/16 at 09:12; Stop 09/15/16 at 09:13; Status DC Cefazolin Sodium/ Dextrose 50 ml @ 100 mls/hr 1X ONCE IV ; Start 09/15/16 at 09 :15; Stop 09/15/16 at 09:44; Status UNV Cefazolin Sodium/ Dextrose (Ancef 2gm Premix) 50 ml @ 100 mls/hr 1X ONCE IV Last administered on 09/15/16 10:11; Start 09/15/16 at 09:30; Stop 09/15/16 at 09: 59; Status DC Cellulose 1 each STK-MED ONCE .ROUTE Last administered on 09/15/16 10:33; Start 09/15/16 at 10:13; Stop 09/15/16 at 10:14; Status DC Mannitol (Mannitol) 12.5 g STK-MED ONCE .ROUTE ; Start 09/15/16 at 10:14; Stop at 10:15; Status DC Gelatin (Gelfoam Size 100) 1 each STK-MED ONCE .ROUTE ; Start 09/15/16 at 10:14 ; Stop 09/15/16 at 10:15; Status DC Phenylephrine HCl 1 mg STK-MED ONCE IV ; Start 09/15/16 at 10:34; Stop 09/15/16 at 10:35; Status DC Irrigating Solution (Duovisc Kit) 1 kit STK-MED ONCE .ROUTE ; Start 09/15/16 at 12:58; Stop 09/15/16 at 12:59; Status DC Multi-Ingred Cream/Lotion/Oil/ Oint (Artificial Tears Eye Oint) 7 domenica STK-MED ONCE .ROUTE ; Start 09/15/16 at 13:19; Stop 09/15/16 at 13:20; Status DC Fentanyl Citrate (Fentanyl 2ml Vial) 50 mcg PRN Q1HR PRN IV SEVERE PAIN Last administered on 09/16/16 14:24; Start 09/15/16 at 14:15 Fentanyl Citrate 25 mcg 25 mcg PRN Q1HR PRN IV SEVERE PAIN; Start 09/15/16 at 14 :15; Stop 09/15/16 at 14:35; Status DC Nicardipine HCl/ Sodium Chloride (Cardene/Iv Sodium Chloride 0.9% 250ml) 270 ml @ 27 mls/hr ONCE ONCE IV Last administered on 09/15/16 14:26; Start 09/15/16 at 14:30; Stop 09/16/16 at 00:29; Status DC Ketorolac Tromethamine (Toradol) 30 mg 1X ONCE IV Last administered on 21:03; Start 09/15/16 at 20:45; Stop 09/15/16 at 20:46; Status DC Ketorolac Tromethamine (Toradol) 15 mg PRN Q6HRS PRN IV PAIN Last administered on 09/16/16 16:34; Start 09/16/16 at 03:00; Stop 09/21/16 at 02:59 Hydromorphone HCl (Dilaudid) 0.4 mg PRN Q4HRS PRN IVP MODERATE PAIN 2ND CHOICE Last administered on 09/16/16 17:05; Start 09/16/16 at 02:45 Ondansetron HCl (Zofran) 4 mg STK-MED ONCE .ROUTE ; Start 09/16/16 at 10:42; Stop 09/16/16 at 10:43; Status DC Ondansetron HCl (Zofran) 4 mg 1X ONCE IV Last administered on 09/16/16 11:00; Start 09/16/16 at 11:00; Stop 09/16/16 at 11:01; Status DC Gadobutrol (Gadavist) 6 mmol 1X ONCE IV Last administered on 09/16/16 11:00; Start 09/16/16 at 11:00; Stop 09/16/16 at 11:01; Status DC Methocarbamol (Robaxin) 750 mg PRN Q6HRS PRN PO MUSCLE SPASMS Last administered on 09/16/16 15:35; Start 09/16/16 at 15:30 Oxycodone/ Acetaminophen (Percocet 10/325) 2 tab PRN Q4HRS PRN PO MODERATE PAIN ; Start 09/16/16 at 15:30 Vitals/I & O Vital Sign - Last 24 Hours 09/15/16 09/15/16 09/15/16 09/16/16 21:00 22:00 23:00 00:00 Pulse 106 78 81 69 Resp 18 16 14 16 B/P 149/71 133/67 122/61 142/71 Pulse Ox 100 100 100 100 O2 Delivery Nasal Cannula Nasal Cannula Nasal Cannula Nasal Cannula O2 Flow Rate 3.0 3.0 3.0 3.0 09/16/16 09/16/16 09/16/16 09/16/16 00:00 00:00 01:00 02:00 Temp 98.1 98.1 Pulse 64 58 Resp 15 13 B/P 133/73 122/72 Pulse Ox 100 100 O2 Delivery Nasal Cannula Nasal Cannula Nasal Cannula O2 Flow Rate 3.0 3.0 3.0 09/16/16 09/16/16 09/16/16 09/16/16 03:00 04:00 04:00 04:00 Temp 98.0 98.0 Pulse 58 58 Resp 12 13 B/P 120/70 132/72 Pulse Ox 100 100 O2 Delivery Nasal Cannula Nasal Cannula Nasal Cannula O2 Flow Rate 3.0 3.0 3.0 09/16/16 09/16/16 09/16/16 09/16/16 05:00 06:00 07:00 07:30 Pulse 56 59 58 Resp 11 12 14 B/P 139/74 128/75 125/73 Pulse Ox 100 100 100 100 O2 Delivery Nasal Cannula Nasal Cannula Nasal Cannula Nasal Cannula O2 Flow Rate 3.0 3.0 3.0 3.0 09/16/16 09/16/16 09/16/16 09/16/16 08:00 08:00 08:01 09:00 Temp 98.3 98.3 Pulse 56 Resp 12 B/P 134/72 Pulse Ox 100 99 O2 Delivery Nasal Cannula Nasal Cannula Nasal Cannula O2 Flow Rate 3.0 3.0 3.0 09/16/16 09/16/16 09/16/16 09/16/16 09:40 10:00 11:00 11:45 Pulse 54 60 Resp 20 22 B/P 158/79 Pulse Ox 99 99 99 98 O2 Delivery Nasal Cannula Nasal Cannula Nasal Cannula Nasal Cannula O2 Flow Rate 3.0 3.0 3.0 3.0 09/16/16 09/16/16 09/16/16 09/16/16 12:00 12:00 12:15 13:00 Temp 98.3 98.3 Pulse 61 62 Resp 22 B/P 149/77 147/84 Pulse Ox 99 99 99 O2 Delivery Nasal Cannula Nasal Cannula Nasal Cannula Nasal Cannula O2 Flow Rate 3.0 3.0 3.0 3.0 09/16/16 09/16/16 09/16/16 09/16/16 13:40 14:00 14:24 14:48 Pulse 70 Resp 22 35 25 B/P 169/88 Pulse Ox 99 99 98 99 O2 Delivery Nasal Cannula Nasal Cannula Nasal Cannula Nasal Cannula O2 Flow Rate 3.0 3.0 3.0 3.0 09/16/16 09/16/16 09/16/16 09/16/16 15:00 15:40 16:00 16:00 Temp 98.1 98.1 Pulse 58 56 Resp 20 B/P 142/79 149/77 Pulse Ox 99 98 100 O2 Delivery Nasal Cannula Nasal Cannula Nasal Cannula Nasal Cannula O2 Flow Rate 3.0 3.0 3.0 3.0 09/16/16 09/16/16 09/16/16 09/16/16 16:40 17:00 17:05 17:59 Pulse 58 Resp 21 20 22 B/P 148/79 Pulse Ox 98 99 98 98 O2 Delivery Nasal Cannula Nasal Cannula Nasal Cannula Nasal Cannula O2 Flow Rate 3.0 3.0 3.0 3.0 09/16/16 09/16/16 09/16/16 09/16/16 18:00 19:00 20:20 20:20 Temp 97.8 97.8 Pulse 62 68 58 B/P 152/81 146/70 122/81 Pulse Ox 97 99 100 O2 Delivery Room Air Room Air Nasal Cannula Nasal Cannula O2 Flow Rate 2.0 2.0 Intake and Output 09/15/16 09/15/16 09/16/16 15:00 23:00 07:00 Intake Total 50 ml 150 ml 121 ml Output Total 350 ml 800 ml Balance 50 ml -200 ml -679 ml MARIOLA WASHINGTON MD Sep 16, 2016 20:50
[2016-09-17] VITALS (12 sets, daily range): BP systolic 132–166; BP diastolic 72–87
[2016-09-17] MEDS: KETOROLAC 15 MG/ML VIAL. IV PRN ×4 (00:05→19:37)
[2016-09-17] MEDS ORDERED: PANT20TA2 PO (01:10)
[2016-09-17] MEDS ORDERED: OXYC-250 PO (01:10)
[2016-09-17] MEDS ORDERED: FENT1PAT92 TD (01:10)
[2016-09-17] MEDS: HYDROMORPHONE 2 MG/ML VIAL. IVP PRN ×4 (02:25→15:58)
[2016-09-17] MEDS: DEXAMETHASONE SOD PHOS 4 MG/ML VIAL IV SCH ×4 (02:29→17:52)
[2016-09-17] MEDS: OXYCODONE/APAP 10/325 TABLET. PO PRN ×2 (04:20→16:53)
--- NOTE | 2016-09-17 08:53 | PDOC ---
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 Interested in eating again. No SOB, CP, abd pain, nausea, or other complaints. No vision deficits. Objective: Vital Signs: Vital Signs Date Time Temp Pulse Resp B/P Pulse Ox O2 Delivery O2 Flow Rate FiO2 09/17/16 08:00 97.6 61 158/87 100 Room Air 97.6 09/16/16 20:20 2.0 09/16/16 17:59 22 Physical Exam: Heart: Regular rate Extremities: No edema General: Alert, Oriented X3, Cooperative, No acute distress Lungs: Normal air movement Neuro: Other (no focal CN deficits) Psych/Mental Status: Mental status NL, Mood NL Labs/Imaging: Path pending Assessment/Plan A/P: 1. 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 Primary oncologist is Dr. Duoglas Aragon 2. 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
[2016-09-17] MEDS: FENTANYL PF 100 MCG/2 ML VIAL. IV PRN (09:25)
[2016-09-17] MEDS: LEVETIRACETAM 500 MG in IV NORMAL SALINE 100ML 100 ML IV SCH ×2 (09:27→20:54)
[2016-09-17] MEDS: MORPHINE ER 15 MG TABLET.ER PO SCH ×2 (09:28→20:54)
--- NOTE | 2016-09-17 09:33 | PDOC ---
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 Plan s/p resection of right cerebellar mass, Pain control IV Dilaudid follow NS recommendations. Biopsy results pending IV Decadron off nicardipine gtt, goals sbp < 140 IV Keppra IV Zofran PRN Neuro checks per protocol ICU stay PT/OT History of Present Illness History of Present Illness headaches better no fever no chills. Vitals Vitals Vital Signs Date Time Temp Pulse Resp B/P Pulse Ox O2 Delivery O2 Flow Rate FiO2 09/17/16 09:28 22 96 Room Air 09/17/16 08:00 97.6 61 158/87 97.6 09/16/16 20:20 2.0 Physical Exam General: Alert, Oriented X3, Cooperative, No acute distress Heart: Regular rate, Normal S1, Normal S2 Lungs: Clear Abdomen: Normal bowel sounds, Soft Extremities: No edema Assessment and Plan Assessmemt and Plan Problems Medical Problems: (1) Cerebellar mass Status: Acute (2) Intracranial hemorrhage Status: Acute Problems: Comment Review of Relevant I have reviewed the following items samara (where applicable) has been applied. Medications Current Medications Sodium Chloride (Iv Sodium Chloride 0.9% 1000ml Bag) 1,000 ml @ 1,000 mls/hr Q1H IV Last administered on 09/13/16 11:20; Start 09/13/16 at 10:44; Stop at 11:43; Status DC Fentanyl Citrate (Fentanyl 2ml Vial) 50 mcg 1X ONCE IV Last administered on 11:20; Start 09/13/16 at 10:45; Stop 09/13/16 at 10:53; Status DC Meclizine HCl 25 mg 25 mg 1X ONCE PO Last administered on 09/13/16 11:19; Start 09/13/16 at 10:45; Stop 09/13/16 at 10:53; Status DC Nicardipine HCl/ Sodium Chloride (Cardene/Iv Sodium Chloride 0.9% 250ml) 270 ml @ 0 mls/hr CONT PRN IV SEE I/O RECORD; Start 09/13/16 at 11:15; Stop 09/13/16 at 11:22; Status DC Dexamethasone Sodium Phosphate 10 mg 10 mg 1X ONCE IV Last administered on 09/13 11:33; Start 09/13/16 at 12:00; Stop 09/13/16 at 12:01; Status DC Nicardipine HCl/ Sodium Chloride (Cardene/Iv Sodium Chloride 0.9% 250ml) 270 ml @ 0 mls/hr CONT PRN IV SEE I/O RECORD Last administered on 09/13/16 22:20; Start 09/13/16 at 12:00 Ondansetron HCl (Zofran) 4 mg PRN Q8HRS PRN IV NAUSEA/VOMITING Last administered on 09/14/16 08:31; Start 09/13/16 at 11:30; Stop 09/14/16 at 11:29; Status DC Fentanyl Citrate (Fentanyl 2ml Vial) 50 mcg PRN Q1HR PRN IV PAIN Last administered on 09/14/16 08:16; Start 09/13/16 at 11:30; Stop 09/14/16 at 11:29; Status DC Acetaminophen (Tylenol) 650 mg PRN Q4HRS PRN PO FEVER; Start 09/13/16 at 11:30; Stop 09/14/16 at 11:29; Status DC Dexamethasone Sodium Phosphate (Decadron) 2 mg Q6HRS IV ; Start 09/13/16 at 18:00 ; Stop 09/13/16 at 18:00; Status DC Gadobutrol (Gadavist) 7.5 mmol 1X ONCE IV Last administered on 09/13/16 12:56 ; Start 09/13/16 at 13:00; Stop 09/13/16 at 13:01; Status DC Dexamethasone Sodium Phosphate 4 mg 4 mg Q6HRS IV Last administered on 06:52; Start 09/13/16 at 18:00 Levetiracetam/ Sodium Chloride (Keppra/Iv Sodium Chloride 0.9% 100ml) 105 ml @ 400 mls/hr Q12HR IV Last administered on 09/17/16 09:27; Start 09/13/16 at 14: 30 Lorazepam (Ativan) 2 mg PRN Q6HRS PRN IV ANXIETY / AGITATION Last administered on 09/14/16 11:38; Start 09/13/16 at 14:15 Oxycodone/ Acetaminophen (Percocet 10/325) 1 tab PRN Q4HRS PRN PO pain Last administered on 09/16/16 15:40; Start 09/13/16 at 15:00 Morphine Sulfate 15 mg 15 mg BID PO Last administered on 09/17/16 09:28; Start 09/13/16 at 15:00 Potassium Chloride/Dextrose/ Sod Cl (KCl 20 Meq In D5W-1/2 NS) 1,000 ml @ 100 mls/hr 1X ONCE IV Last administered on 09/13/16 16:33; Start 09/13/16 at 15:00 ; Stop 09/14/16 at 00:59; Status DC Iohexol (Omnipaque 300 Mg/ml) 75 ml 1X ONCE IV Last administered on 09/14/16 08:40; Start 09/14/16 at 08:00; Stop 09/14/16 at 08:01; Status DC Info (Do NOT chart on this entry -- for MONITORING) 1 each PRN DAILY PRN MC SEE COMMENTS; Start 09/14/16 at 08:00; Stop 09/16/16 at 07:59; Status DC Ondansetron HCl (Zofran) 4 mg PRN Q6HRS PRN IV Nausea; Start 09/15/16 at 07:00; Stop 09/16/16 at 06:59; Status DC Fentanyl Citrate (Fentanyl 2ml Vial) 25 mcg PRN Q5MIN PRN IV MILD PAIN Last administered on 09/14/16 21:15; Start 09/15/16 at 07:00; Stop 09/16/16 at 06:59; Status DC Fentanyl Citrate (Fentanyl 2ml Vial) 50 mcg PRN Q5MIN PRN IV MODERATE PAIN Last administered on 09/15/16 15:10; Start 09/15/16 at 07:00; Stop 09/16/16 at 06: 59; Status DC Morphine Sulfate 1 mg 1 mg PRN Q10MIN PRN IV SEVERE PAIN; Start 09/15/16 at 07: 00; Stop 09/16/16 at 02:43; Status DC Lactated Ringer's (Iv Lactated Ringers) 1,000 ml @ 0 mls/hr Q0M IV Last administered on 09/15/16 09:16; Start 09/15/16 at 07:00; Stop 09/15/16 at 18:59; Status DC Lidocaine HCl 2 ml 1X PRN PRN ID IV START; Start 09/15/16 at 07:00; Stop at 06:59; Status DC Hydromorphone HCl (Dilaudid) 0.5 mg PRN Q10MIN PRN IV SEVERE PAIN, Second choice Last administered on 09/16/16 01:48; Start 09/15/16 at 07:00; Stop at 02:43; Status DC Prochlorperazine Edisylate (Compazine) 5 mg PACU PRN PRN IV NAUSEA; Start at 07:00; Stop 09/16/16 at 06:59; Status DC Fentanyl Citrate 25 mcg 25 mcg PRN Q1HR PRN IV MODERATE PAIN 1ST CHOICE Last administered on 09/17/16 09:25; Start 09/14/16 at 12:30 Bacitracin 11220 unit/Sodium Chloride 1,000 ml @ 1,000 mls/hr 1X PERIOP ONCE IRR Last administered on 09/15/16 10:33; Start 09/15/16 at 08:00; Stop 09/15/16 at 08:59; Status DC Potassium Chloride/Dextrose/ Sod Cl 1,000 ml @ 40 mls/hr 1X ONCE IV Last administered on 09/14/16 17:30; Start 09/14/16 at 17:30; Stop 09/15/16 at 18:29; Status DC Potassium Chloride/Dextrose/ Sodium Chloride (Iv D5% - 1/2 NS) 1,010 ml @ 40 mls/hr Q24H IV ; Start 09/14/16 at 23:15; Status UNV Fentanyl Citrate 50 mcg 50 mcg PRN Q2HR PRN IV SEVERE PAIN Last administered on 09/15/16 04:29; Start 09/14/16 at 23:15; Stop 09/15/16 at 14:35; Status DC Potassium Chloride/Dextrose/ Sod Cl (KCl 20 Meq In D5W-1/2 NS) 1,000 ml @ 40 mls/hr Q24H IV Last administered on 09/14/16 23:33; Start 09/14/16 at 23:30; Stop 09/16/16 at 19:44; Status DC Lidocaine/ Epinephrine (Xylocaine 1%-Epi 1:100,000) 20 ml STK-MED ONCE .ROUTE Last administered on 09/15/16 10:33; Start 09/15/16 at 06:41; Stop 09/15/16 at 06: 42; Status DC Thrombin 20,000 unit STK-MED ONCE TP Last administered on 09/15/16 10:33; Start 09/15/16 at 06:42; Stop 09/15/16 at 06:43; Status DC Gelatin (Gelfoam Powder) 1 gm STK-MED ONCE .ROUTE Last administered on 10:33; Start 09/15/16 at 06:42; Stop 09/15/16 at 06:43; Status DC Gelatin (Gelfoam Size 100) 1 each STK-MED ONCE .ROUTE ; Start 09/15/16 at 06:42 ; Stop 09/15/16 at 06:43; Status DC Povidone Iodine ( Betadine Oint) 28 domenica STK-MED ONCE TP ; Start 09/15/16 at 06:43 ; Stop 09/15/16 at 06:44; Status DC Bacitracin 14 domenica STK-MED ONCE TP Last administered on 09/15/16 10:33; Start at 06:43; Stop 09/15/16 at 06:44; Status DC Gadobutrol (Gadavist) 6 mmol 1X ONCE IV Last administered on 09/15/16 08:43; Start 09/15/16 at 08:15; Stop 09/15/16 at 08:19; Status DC Dexamethasone Sodium Phosphate (Decadron) 20 mg STK-MED ONCE .ROUTE ; Start 09/15 at 08:54; Stop 09/15/16 at 08:55; Status DC Ondansetron HCl 4 mg 4 mg STK-MED ONCE .ROUTE ; Start 09/15/16 at 08:54; Stop 09/15/16 at 08:55; Status DC Propofol 50 ml @ As Directed STK-MED ONCE IV ; Start 09/15/16 at 08:54; Stop 09/15 at 08:55; Status DC Propofol (Diprivan) 20 ml @ As Directed STK-MED ONCE IV ; Start 09/15/16 at 08:54 ; Stop 09/15/16 at 08:55; Status DC Lidocaine HCl 100 mg STK-MED ONCE .ROUTE ; Start 09/15/16 at 08:54; Stop 09/15/16 at 08:55; Status DC Fentanyl Citrate (Fentanyl 2ml Vial) 100 mcg STK-MED ONCE .ROUTE ; Start at 08:54; Stop 09/15/16 at 08:55; Status DC Remifentanil HCl (Ultiva) 2 mg STK-MED ONCE IV ; Start 09/15/16 at 08:54; Stop at 08:55; Status DC Sodium Chloride (Sodium Chloride) 50 ml STK-MED ONCE IJ ; Start 09/15/16 at 08:55 ; Stop 09/15/16 at 08:56; Status DC Rocuronium [place] (Zemuron) 50 mg STK-MED ONCE .ROUTE ; Start 09/15/16 at 09:00 ; Stop 09/15/16 at 09:01; Status DC Midazolam HCl 2 mg 2 mg STK-MED ONCE .ROUTE ; Start 09/15/16 at 09:02; Stop at 09:03; Status DC Cefazolin Sodium/ Dextrose 50 ml @ As Directed STK-MED ONCE IV ; Start 09/15/16 at 09:12; Stop 09/15/16 at 09:13; Status DC Cefazolin Sodium/ Dextrose 50 ml @ 100 mls/hr 1X ONCE IV ; Start 09/15/16 at 09 :15; Stop 09/15/16 at 09:44; Status UNV Cefazolin Sodium/ Dextrose (Ancef 2gm Premix) 50 ml @ 100 mls/hr 1X ONCE IV Last administered on 09/15/16 10:11; Start 09/15/16 at 09:30; Stop 09/15/16 at 09: 59; Status DC Cellulose 1 each STK-MED ONCE .ROUTE Last administered on 09/15/16 10:33; Start 09/15/16 at 10:13; Stop 09/15/16 at 10:14; Status DC Mannitol (Mannitol) 12.5 g STK-MED ONCE .ROUTE ; Start 09/15/16 at 10:14; Stop at 10:15; Status DC Gelatin (Gelfoam Size 100) 1 each STK-MED ONCE .ROUTE ; Start 09/15/16 at 10:14 ; Stop 09/15/16 at 10:15; Status DC Phenylephrine HCl 1 mg STK-MED ONCE IV ; Start 09/15/16 at 10:34; Stop 09/15/16 at 10:35; Status DC Irrigating Solution (Duovisc Kit) 1 kit STK-MED ONCE .ROUTE ; Start 09/15/16 at 12:58; Stop 09/15/16 at 12:59; Status DC Multi-Ingred Cream/Lotion/Oil/ Oint (Artificial Tears Eye Oint) 7 domenica STK-MED ONCE .ROUTE ; Start 09/15/16 at 13:19; Stop 09/15/16 at 13:20; Status DC Fentanyl Citrate (Fentanyl 2ml Vial) 50 mcg PRN Q1HR PRN IV SEVERE PAIN Last administered on 09/16/16 14:24; Start 09/15/16 at 14:15 Fentanyl Citrate 25 mcg 25 mcg PRN Q1HR PRN IV SEVERE PAIN; Start 09/15/16 at 14 :15; Stop 09/15/16 at 14:35; Status DC Nicardipine HCl/ Sodium Chloride (Cardene/Iv Sodium Chloride 0.9% 250ml) 270 ml @ 27 mls/hr ONCE ONCE IV Last administered on 09/15/16 14:26; Start 09/15/16 at 14:30; Stop 09/16/16 at 00:29; Status DC Ketorolac Tromethamine (Toradol) 30 mg 1X ONCE IV Last administered on 21:03; Start 09/15/16 at 20:45; Stop 09/15/16 at 20:46; Status DC Ketorolac Tromethamine (Toradol) 15 mg PRN Q6HRS PRN IV PAIN Last administered on 09/17/16 05:28; Start 09/16/16 at 03:00; Stop 09/21/16 at 02:59 Hydromorphone HCl (Dilaudid) 0.4 mg PRN Q4HRS PRN IVP MODERATE PAIN 2ND CHOICE Last administered on 09/17/16 06:52; Start 09/16/16 at 02:45 Ondansetron HCl (Zofran) 4 mg STK-MED ONCE .ROUTE ; Start 09/16/16 at 10:42; Stop 09/16/16 at 10:43; Status DC Ondansetron HCl (Zofran) 4 mg 1X ONCE IV Last administered on 09/16/16 11:00; Start 09/16/16 at 11:00; Stop 09/16/16 at 11:01; Status DC Gadobutrol (Gadavist) 6 mmol 1X ONCE IV Last administered on 09/16/16 11:00; Start 09/16/16 at 11:00; Stop 09/16/16 at 11:01; Status DC Methocarbamol (Robaxin) 750 mg PRN Q6HRS PRN PO MUSCLE SPASMS Last administered on 09/16/16 15:35; Start 09/16/16 at 15:30 Oxycodone/ Acetaminophen (Percocet 10/325) 2 tab PRN Q4HRS PRN PO MODERATE PAIN Last administered on 09/17/16 04:20; Start 09/16/16 at 15:30 Active Scripts Active Reported Protonix (Pantoprazole Sodium) 20 Mg Tablet.dr 1 Tab PO DAILY DURAGESIC 75mcg/hr (Fentanyl) 1 Each Patch.td72 1 Patch TD Q72H Percocet 10-325 Mg Tablet (Oxycodone/Acetaminophen) 1 Each Tablet 1 Tab PO Q4- 6HRS Vitals/I & O Vital Sign - Last 24 Hours 09/16/16 09/16/16 09/16/16 09/16/16 09:40 10:00 11:00 11:45 Pulse 54 60 Resp 20 22 B/P 158/79 Pulse Ox 99 99 99 98 O2 Delivery Nasal Cannula Nasal Cannula Nasal Cannula Nasal Cannula O2 Flow Rate 3.0 3.0 3.0 3.0 09/16/16 09/16/16 09/16/16 09/16/16 12:00 12:00 12:15 13:00 Temp 98.3 98.3 Pulse 61 62 Resp 22 B/P 149/77 147/84 Pulse Ox 99 99 99 O2 Delivery Nasal Cannula Nasal Cannula Nasal Cannula Nasal Cannula O2 Flow Rate 3.0 3.0 3.0 3.0 09/16/16 09/16/16 09/16/16 09/16/16 13:40 14:00 14:24 14:48 Pulse 70 Resp 22 35 25 B/P 169/88 Pulse Ox 99 99 98 99 O2 Delivery Nasal Cannula Nasal Cannula Nasal Cannula Nasal Cannula O2 Flow Rate 3.0 3.0 3.0 3.0 09/16/16 09/16/16 09/16/16 09/16/16 15:00 15:40 16:00 16:00 Temp 98.1 98.1 Pulse 58 56 Resp 20 B/P 142/79 149/77 Pulse Ox 99 98 100 O2 Delivery Nasal Cannula Nasal Cannula Nasal Cannula Nasal Cannula O2 Flow Rate 3.0 3.0 3.0 3.0 09/16/16 09/16/16 09/16/16 09/16/16 16:40 17:00 17:05 17:59 Pulse 58 Resp 21 20 22 B/P 148/79 Pulse Ox 98 99 98 98 O2 Delivery Nasal Cannula Nasal Cannula Nasal Cannula Nasal Cannula O2 Flow Rate 3.0 3.0 3.0 3.0 09/16/16 09/16/16 09/16/16 09/16/16 18:00 19:00 20:20 20:20 Temp 97.8 97.8 Pulse 62 68 58 B/P 152/81 146/70 122/81 Pulse Ox 97 99 100 O2 Delivery Room Air Room Air Nasal Cannula Nasal Cannula O2 Flow Rate 2.0 2.0 09/16/16 09/16/16 09/16/16 09/17/16 21:00 22:00 23:00 00:00 Temp 98.2 98.2 Pulse 70 74 60 56 B/P 160/83 142/68 137/84 153/78 Pulse Ox 99 98 99 97 O2 Delivery Room Air Room Air Room Air Room Air 09/17/16 09/17/16 09/17/16 09/17/16 01:00 02:00 03:00 04:00 Pulse 60 56 56 56 B/P 147/79 145/74 145/79 137/74 Pulse Ox 99 96 99 100 O2 Delivery Room Air Room Air Room Air 09/17/16 09/17/16 09/17/16 09/17/16 05:00 06:00 07:00 08:00 Temp 98.1 97.6 98.1 97.6 Pulse 56 55 55 61 B/P 153/83 149/83 132/77 158/87 Pulse Ox 99 100 100 100 O2 Delivery Room Air Room Air Room Air 09/17/16 09/17/16 09:25 09:28 Resp 22 22 Pulse Ox 96 96 O2 Delivery Room Air Room Air Intake and Output 09/16/16 09/16/16 09/17/16 15:00 23:00 07:00 Intake Total 80 ml 140 ml Output Total 0 ml 580 ml 400 ml Balance 80 ml -440 ml -400 ml MARIOLA WASHINGTON MD Sep 17, 2016 09:33
[2016-09-17 11:09] LABS: CALCIUM 8.7 mg/dL (8.5-10.1); GFR 76.5; POTASSIUM 4.2 mmol/L (3.5-5.1)
--- NOTE | 2016-09-17 11:52 | PDOC ---
SUBJECTIVE Subjective Reports significant improvement of headache/incisional pain today. Denies nausea /vomiting. Reports some intermittent diplopia that is quite transient. OBJECTIVE Objective 09/16/16 MRI brain with expected post-op changes, small residual 5mm mass near anterior resection cavity near brainstem, reduced mass effect on 4th ventricle, no ventriculomegaly Vital Signs Vital Signs Date Time Temp Pulse Resp B/P Pulse Ox O2 Delivery O2 Flow Rate FiO2 09/17/16 11:08 10 98 Room Air 09/17/16 09:55 10 98 Nasal Cannula 09/17/16 09:28 22 96 Room Air 09/17/16 09:25 22 96 Room Air 09/17/16 08:00 97.6 61 158/87 100 Room Air 97.6 09/17/16 07:00 55 132/77 100 Room Air 09/17/16 06:00 55 149/83 100 09/17/16 05:00 98.1 56 153/83 99 Room Air 98.1 09/17/16 04:00 56 137/74 100 09/17/16 03:00 56 145/79 99 Room Air 09/17/16 02:00 56 145/74 96 Room Air 09/17/16 01:00 60 147/79 99 Room Air 09/17/16 00:00 98.2 56 153/78 97 Room Air 98.2 09/16/16 23:00 60 137/84 99 Room Air 09/16/16 22:00 74 142/68 98 Room Air 09/16/16 21:00 70 160/83 99 Room Air 09/16/16 20:20 Nasal Cannula 2.0 09/16/16 20:20 58 122/81 100 Nasal Cannula 2.0 09/16/16 19:00 97.8 68 146/70 99 Room Air 97.8 09/16/16 18:00 62 152/81 97 Room Air 09/16/16 17:59 22 98 Nasal Cannula 3.0 09/16/16 17:05 20 98 Nasal Cannula 3.0 09/16/16 17:00 58 148/79 99 Nasal Cannula 3.0 09/16/16 16:40 21 98 Nasal Cannula 3.0 09/16/16 16:00 98.1 56 149/77 100 Nasal Cannula 3.0 98.1 09/16/16 16:00 Nasal Cannula 3.0 09/16/16 15:40 20 98 Nasal Cannula 3.0 09/16/16 15:00 58 142/79 99 Nasal Cannula 3.0 09/16/16 14:48 25 99 Nasal Cannula 3.0 09/16/16 14:24 35 98 Nasal Cannula 3.0 09/16/16 14:00 70 169/88 99 Nasal Cannula 3.0 09/16/16 13:40 22 99 Nasal Cannula 3.0 09/16/16 13:00 62 147/84 99 Nasal Cannula 3.0 09/16/16 12:15 22 99 Nasal Cannula 3.0 09/16/16 12:00 98.3 61 149/77 99 Nasal Cannula 3.0 98.3 09/16/16 12:00 Nasal Cannula 3.0 09/16/16 11:45 22 98 Nasal Cannula 3.0 I & O Intake and Output 09/17/16 07:00 Intake Total 220 ml Output Total 1030 ml Balance -810 ml Intake Oral 120 ml IV Total 100 ml Output Urine Total 1030 ml PHYSICAL EXAM Physical Exam AA, NAD, speech fluent, PERRL, EOMI, reports some diplopia on right lateral gaze , slight decrease hearing on right relative to left, face symmetric, RAMESH 5/5, cerebellar accuracy slightly reduced on right relative to left ASSESSMENT/PLAN Assessment/Plan 61M POD 2 suboccipital craniectomy for resection of right cerebellar mass -overall appears to be recovering well -pain controlled with present regimen -increase activity/PT/OT -- ?rehab? depending on progress with therapies -may downgrade from ICU from NS standpoint if otherwise meets criteria from other services involved -may begin pharmacological DVT prophylaxis 09/18/16 from NS standpoint Problems: COMMENT Lab Laboratory Tests Test 09/17/16 06:00 Sodium Level 138mmol/L (136-145) Potassium Level 4.2mmol/L (3.5-5.1) Chloride Level 103mmol/L (98-107) Carbon Dioxide Level 30mmol/L (21-32) Anion Gap 5 (6-14) Blood Urea Nitrogen 29mg/dL (8-26) Creatinine 1.0mg/dL (0.7-1.3) Estimated GFR (Cockcroft-Gault) 76.5 Glucose Level 155mg/dL (70-99) Calcium Level 8.7mg/dL (8.5-10.1) BHARTI VALADEZ MD Sep 17, 2016 11:52
--- NOTE | 2016-09-17 12:14 | PDOC ---
Provider Note Provider Note Day 2 post op for resection of right cerebellar metastasis. Post op KRUGER better, now ambulating. Dr Moreno noted that lesion was all malignant without obvious significant hemorrhage. 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 Dominant right cerebellar lesion resected. Multiple other lesions seen on MRI. Recommend post op whole brain RT 2 to 4 weeks post op. He will be treated in [facility]. I did phone his previous radiation department in [place] to review situation and they will call patient for follow up appointment. SID SANTANA MD Sep 17, 2016 12:14
--- NOTE | 2016-09-17 13:16 | PDOC ---
PROGRESS NOTES Assessment Assessment Large right cerebellar adenocarcinoma metastatic mass with hemorrhage and mass effect and effacement of the 4th ventricle. Multiple small metastatic lesions in bilateral hemispheres. Cerebral edema. Headache ICP Vomiting Esophageal cancer adenocarcinoma s/p surgical resection about 5 months ago. Received chemo and radiation therapy before surgery. Right cerebellar tonsillar ectopia. GERD RECOMMENDATIONS/PLAN: Decadron 4 mg IV q6h, duration per Neurosurgery. Keppra 500 mg bid. BP control. Pain control. Right cerebellar mass resection on 09/15. Oncology on team. Discussed with his family at bedside in ICU on 09/17/16. HISTORY OF THE PRESENT ILLNESS: 61-y-old male patient with Hx of esophageal cancer and received presurgical chemo and radiation therapies then surgery about 5 months ago. He developed symptoms of nausea, vomiting and headaches this time and metastatic intracranial disease with large hemorrhage in right cerebellar was evidential. He has been doing fine since 09/15 after NS surgery for right cerebellar mass resection. Some pain at incision and occipital head. PAST MEDICAL HISTORY: Please see above. PAST SURGERY HISTORY: Cholecystectomy Esophagectomy ALLERGY: Reviewed. MEDICATIONS: Refer to [facility] FAMILY HISTORY: Non contributory. SOCIAL HISTORY: Denies current smoking, drinking, and illicit drug use. He smoked 2 pack of cigarettes a day for many years but quit in 1991. REVIEW OF SYSTEMS: Constitutional: Mildly malnutrition. Head: No recent traumatic brain or head injury. Skin: No edema, or rash. Ear: No infection, tinnitus. Eyes: No vision loss or color blindness. Nose: No bleeding or purulent discharges. Hearing: No hearing decrease. Neck: No injury. Cardiac: No PA, arrhythmia. Pulmonary: No COPD. GI: GERD. Urinary/genital: No dysuria, hematuria, incontinence, urinary retention. Endocrinologic: No cousin face, craniofacial dysmorphism, polydactyly, goiter. Skeletomuscular: No muscular atrophy, deformity. Neurological: see HP. Psychiatric: Denies current drug use/abuse. Otherwise, not [id number] review of systems. PHYSICAL EXAMINATION: General appearance is in subacute distress. HEENT: Normocephalic and nontraumatic. Eyes, nose, ears, and throat are unremarkable. Neck is supple. No lymphadenopathy. No crepitus. Cardiovascular: S1, S2, regular rate and rhythm. Pulmonary: Clear to auscultation bilaterally. Abdomen: Bowel sounds are positive. Extremities: No rash, lesions, or edema. No restriction of range of motion NEUROLOGICAL EXAMINATION: Awake. Sitting in chair. Oriented to time, place and person. PERRL. EOMI. CN: no focal findings. Muscle tone: within normal. Muscle strength: 4+ DTR: 2 UE, 3 at knee Plantar reflex: Flexor response bilaterally Gait: not examined in chair. Sensory exam: no acute abnormal findings. F-T-N test not accurate. Objective Objective Vital Signs Date Time Temp Pulse Resp B/P Pulse Ox O2 Delivery O2 Flow Rate FiO2 09/17/16 11:38 20 97 Room Air 09/17/16 08:00 97.6 61 158/87 97.6 09/16/16 20:20 2.0 Intake and Output 09/17/16 07:00 Intake Total 220 ml Output Total 1030 ml Balance -810 ml Intake Oral 120 ml IV Total 100 ml Output Urine Total 1030 ml Vitals Signs Vitals VS - Last 72 Hours, by Label Date Time Temp Pulse Resp B/P Pulse Ox O2 Delivery O2 Flow Rate FiO2 09/17/16 11:38 20 97 Room Air 09/17/16 11:08 10 98 Room Air 09/17/16 09:55 10 98 Nasal Cannula 09/17/16 09:28 22 96 Room Air 09/17/16 09:25 22 96 Room Air 09/17/16 08:00 97.6 61 158/87 100 Room Air 97.6 09/17/16 08:00 Room Air 09/17/16 07:00 55 132/77 100 Room Air 09/17/16 06:00 55 149/83 100 09/17/16 05:00 98.1 56 153/83 99 Room Air 98.1 09/17/16 04:00 56 137/74 100 09/17/16 03:00 56 145/79 99 Room Air 09/17/16 02:00 56 145/74 96 Room Air 09/17/16 01:00 60 147/79 99 Room Air 09/17/16 00:00 98.2 56 153/78 97 Room Air 98.2 09/16/16 23:00 60 137/84 99 Room Air 09/16/16 22:00 74 142/68 98 Room Air 09/16/16 21:00 70 160/83 99 Room Air 09/16/16 20:20 Nasal Cannula 2.0 09/16/16 20:20 58 122/81 100 Nasal Cannula 2.0 09/16/16 19:00 97.8 68 146/70 99 Room Air 97.8 09/16/16 18:00 62 152/81 97 Room Air 09/16/16 17:59 22 98 Nasal Cannula 3.0 09/16/16 17:05 20 98 Nasal Cannula 3.0 09/16/16 17:00 58 148/79 99 Nasal Cannula 3.0 09/16/16 16:40 21 98 Nasal Cannula 3.0 09/16/16 16:00 98.1 56 149/77 100 Nasal Cannula 3.0 98.1 09/16/16 16:00 Nasal Cannula 3.0 09/16/16 15:40 20 98 Nasal Cannula 3.0 09/16/16 15:00 58 142/79 99 Nasal Cannula 3.0 09/16/16 14:48 25 99 Nasal Cannula 3.0 09/16/16 14:24 35 98 Nasal Cannula 3.0 09/16/16 14:00 70 169/88 99 Nasal Cannula 3.0 09/16/16 13:40 22 99 Nasal Cannula 3.0 09/16/16 13:00 62 147/84 99 Nasal Cannula 3.0 09/16/16 12:15 3.0 09/16/16 12:00 98.3 61 149/77 99 Nasal Cannula 3.0 98.3 09/16/16 12:00 Nasal Cannula 3.0 09/16/16 11:45 22 98 Nasal Cannula 3.0 09/16/16 11:00 60 99 Nasal Cannula 3.0 09/16/16 10:00 54 158/79 99 Nasal Cannula 3.0 09/16/16 09:40 20 99 Nasal Cannula 3.0 09/16/16 09:00 99 Nasal Cannula 3.0 09/16/16 08:01 09/16/16 08:00 98.3 56 12 134/72 100 Nasal Cannula 3.0 98.3 09/16/16 08:00 Nasal Cannula 3.0 09/16/16 08:00 20 99 Nasal Cannula 3.0 09/16/16 07:30 100 Nasal Cannula 3.0 09/16/16 07:00 58 14 125/73 100 Nasal Cannula 3.0 Laboratory Laboratory Laboratory Tests Test 09/17/16 06:00 Sodium Level 138mmol/L (136-145) Potassium Level 4.2mmol/L (3.5-5.1) Chloride Level 103mmol/L (98-107) Carbon Dioxide Level 30mmol/L (21-32) Anion Gap 5 (6-14) Blood Urea Nitrogen 29mg/dL (8-26) Creatinine 1.0mg/dL (0.7-1.3) Estimated GFR (Cockcroft-Gault) 76.5 Glucose Level 155mg/dL (70-99) Calcium Level 8.7mg/dL (8.5-10.1) Medication Medications Current Medications Methocarbamol (Robaxin) 750 mg PRN Q6HRS PRN PO MUSCLE SPASMS Last administered on 09/16/16 15:35; Start 09/16/16 at 15:30 Oxycodone/ Acetaminophen (Percocet 10/325) 2 tab PRN Q4HRS PRN PO MODERATE PAIN Last administered on 09/17/16 04:20; Start 09/16/16 at 15:30 Comment Review of Relevant I have reviewed the following items samara (where applicable) has been applied. BOYD SURESH MD Sep 17, 2016 13:16
--- NOTE | 2016-09-17 15:39 | PATHOLOGY ---
PATHOLOGY REPORT * * * * * * * * FINAL DIAGNOSIS: A. Cerebellar mass biopsy: - METASTATIC ADENOCARCINOMA, MODERATELY DIFFERENTIATED, WITH EXTENSIVE NECROSIS. SEE COMMENT. B. Additional cerebellar mass: - METASTATIC ADENOCARCINOMA, MODERATELY DIFFERENTIATED, WITH EXTENSIVE NECROSIS. COMMENT: Sections of the cerebellar mass reveal a malignant epithelial neoplasm. The neoplasm has a papillary and glandular architecture. The malignant cells have moderate amounts of clear to vacuolated amphophilic cytoplasm. The malignant cells possess enlarged, rounded to ovoid moderately pleomorphic hyperchromatic nuclei containing prominent nucleoli. There is extensive tumor necrosis. A limited panel of immunoperoxidase stains is obtained and yields the following results: (Block A2) Cytokeratin 7: tumor cells positive Cytokeratin 20: tumor cells negative CDX-2: tumor cells positive TTF-1: tumor cells focally positive The morphologic and immunophenotypic findings are supportive of the diagnosis of a metastatic moderately differentiated adenocarcinoma, and are consistent with gastroesophageal origin. Correlate clinically. The case is also examined by Dr. Asya Hinton, who concurs with the diagnosis. (JPM:mgr; d/t: 09/17/16) Special Stains Performed: Immunoperoxidase stains for CK7, CK20, CDX-2, TTF-1. REPORT ELECTRONICALLY SIGNED BY: Stephen Arzate M.D. DATE/TIME: 09/17/2016 15:38 * * * * * * * * GROSS PATHOLOGY: A. The specimen is received fresh for intraoperative consultation and is designated "cerebellar mass - frozen section". This consists of multiple small segments and two larger segments of parra red soft tissue ranging from 0.1-0.2 cm up to 1.3 cm in greatest dimension. A outside sales representative insurance portion of the specimen is submitted for frozen section as FSA1. The tissue remaining from frozen section is submitted for permanent sections as A1. The remainder of the specimen is submitted for microscopy as A2. (JPM:csd; d/t: 09/15/2016) B. The specimen is received in formalin, labeled "Studt, Tristan and more cerebellar mass." Received is a 4.7 x 4.4 x 2.0 cm aggregate of parra-brown, rubbery, friable, and necrotic appearing soft tissue. The specimen is serially sectioned and representatively submitted in cassette B1-B3. (TTL; 09/16/2016) FROZEN SECTION DIAGNOSIS: (Intraoperative Consultation with Frozen Section -- Dr. Arzate); Cerebellar mass biopsy: - METASTATIC ADENOCARCINOMA. The results are reported to Dr. Moreno in the operating room. (JPM:csd; d/t: 09/15/2016) Testing performed [place] [address] INITIAL CPT CODE(S): A; 32873, 89296, 59906, 45383, 34077, 42880 B; 88430 Professional services [place] [address] Technical services performed by [facility] at [address] [place] [address], [address] [address]. SPECIMEN(S) RECEIVED: A.Cerebellum mass B.More cerebellar mass CLINICAL HISTORY: Cerebellar mass with cerebellar hemorrhage PATIENT: TRISTAN SANTAMARIA DOB/AGE: 11 1955 (Age: 61) PATIENT #: [id number] ALT CASE #: SPECIMEN COLLECTION DATE: 09/15/2016 SPECIMEN RECEIVED DATE: 09/15/2016 [facility] - [address] [place] [address] - PHONE: [phone] * * * END OF REPORT * * *
[2016-09-18] MEDS: DEXAMETHASONE SOD PHOS 4 MG/ML VIAL IV SCH ×3 (00:01→12:00)
[2016-09-18 03:20] VITALS: BP 175/83
[2016-09-18] MEDS: OXYCODONE/APAP 10/325 TABLET. PO PRN ×4 (03:40→22:43)
[2016-09-18] MEDS: KETOROLAC 15 MG/ML VIAL. IV PRN (06:16)
[2016-09-18 07:00] VITALS: BP 164/78
[2016-09-18] MEDS: MORPHINE ER 15 MG TABLET.ER PO SCH ×2 (08:59→21:24)
[2016-09-18] MEDS: LEVETIRACETAM 500 MG in IV NORMAL SALINE 100ML 100 ML IV SCH ×2 (09:02→21:23)
[2016-09-18] MEDS: METHOCARBAMOL 750 MG TABLET PO PRN ×2 (10:41→16:47)
[2016-09-18 11:00] VITALS: BP 159/72
--- NOTE | 2016-09-18 12:00 | PDOC ---
SUBJECTIVE Subjective Denies acute complaints. Reports intermittent diplopia resolved. OBJECTIVE Vital Signs Vital Signs Date Time Temp Pulse Resp B/P Pulse Ox O2 Delivery O2 Flow Rate FiO2 09/18/16 11:00 97.7 54 18 159/72 96 Room Air 97.7 09/18/16 08:59 Room Air 09/18/16 07:00 Room Air 09/18/16 07:00 97.6 51 18 164/78 96 Room Air 97.6 09/18/16 04:40 20 96 Room Air 09/18/16 03:40 20 96 Room Air 09/18/16 03:20 98.1 52 18 175/83 96 Room Air 98.1 09/18/16 00:55 20 96 Room Air 09/17/16 23:21 97.9 59 18 162/82 96 Room Air 97.9 09/17/16 20:54 20 97 Room Air 09/17/16 19:25 Room Air 09/17/16 19:25 97.9 59 18 166/75 97 Room Air 97.9 09/17/16 17:55 Room Air 09/17/16 16:53 Room Air 09/17/16 16:40 97.7 61 18 164/72 97 Room Air 97.7 09/17/16 15:58 19 98 09/17/16 15:00 Room Air I & O Intake and Output 09/18/16 07:00 Intake Total 550 ml Output Total 970 ml Balance -420 ml Intake Oral 450 ml IV Total 100 ml Output Urine Total 970 ml PHYSICAL EXAM Physical Exam AAOx4, NAD, speech fluent, RAMESH 5/5, right cerebellar function speed and accuracy improving, sensation intact LT ASSESSMENT/PLAN Assessment/Plan 61M POD 3 suboccipital craniectomy for resection of cerebellar mass -overall, appears to be recovering well from surgery -if unable to void with d/c taylor, recommend urology consult -continue to increase activities/PT/OT - rehab if recommended by therapies -steroid taper to off over next few weeks -keppra per neurology recs, no seizure-like activity at any time -pharmacological DVT prophylaxis okay from NS standpoint at this time -from NS standpoint, could d/c to appropriate venue pending PT/OT recs with appropriate arrangements, void after taylor d/c or urology recs, and if otherwise meets criteria from other services Problems: BHARTI VALADEZ MD Sep 18, 2016 12:00
[2016-09-18] MEDS ORDERED: MAGNESIUM HYDROXIDE 2,400 MG/30 ML ORAL.SUSP. PO PRN (12:15)
--- NOTE | 2016-09-18 13:50 | PDOC ---
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 Plan s/p resection of right cerebellar mass, Pain control IV Dilaudid/fentanyl follow NS recommendations. Biopsy results pending IV Decadron taper off nicardipine gtt, goals sbp < 140 IV Keppra IV Zofran PRN SNU placement PT/OT d/w family at bedside. History of Present Illness History of Present Illness no fever headaches better Vitals Vitals Vital Signs Date Time Temp Pulse Resp B/P Pulse Ox O2 Delivery O2 Flow Rate FiO2 09/18/16 12:03 Room Air 09/18/16 11:00 97.7 54 18 159/72 96 97.7 Physical Exam General: Alert, Oriented X3, Cooperative, No acute distress Heart: Regular rate, Normal S1, Normal S2 Lungs: Clear Abdomen: Normal bowel sounds, Soft Extremities: No edema Assessment and Plan Assessmemt and Plan Problems Medical Problems: (1) Cerebellar mass Status: Acute (2) Intracranial hemorrhage Status: Acute Problems: Comment Review of Relevant I have reviewed the following items samara (where applicable) has been applied. Labs Laboratory Tests Test 09/17/16 06:00 Sodium Level 138mmol/L (136-145) Potassium Level 4.2mmol/L (3.5-5.1) Chloride Level 103mmol/L (98-107) Carbon Dioxide Level 30mmol/L (21-32) Anion Gap 5 (6-14) Blood Urea Nitrogen 29mg/dL (8-26) Creatinine 1.0mg/dL (0.7-1.3) Estimated GFR (Cockcroft-Gault) 76.5 Glucose Level 155mg/dL (70-99) Calcium Level 8.7mg/dL (8.5-10.1) Medications Current Medications Sodium Chloride (Iv Sodium Chloride 0.9% 1000ml Bag) 1,000 ml @ 1,000 mls/hr Q1H IV Last administered on 09/13/16 11:20; Start 09/13/16 at 10:44; Stop at 11:43; Status DC Fentanyl Citrate (Fentanyl 2ml Vial) 50 mcg 1X ONCE IV Last administered on 11:20; Start 09/13/16 at 10:45; Stop 09/13/16 at 10:53; Status DC Meclizine HCl 25 mg 25 mg 1X ONCE PO Last administered on 09/13/16 11:19; Start 09/13/16 at 10:45; Stop 09/13/16 at 10:53; Status DC Nicardipine HCl/ Sodium Chloride (Cardene/Iv Sodium Chloride 0.9% 250ml) 270 ml @ 0 mls/hr CONT PRN IV SEE I/O RECORD; Start 09/13/16 at 11:15; Stop 09/13/16 at 11:22; Status DC Dexamethasone Sodium Phosphate 10 mg 10 mg 1X ONCE IV Last administered on 09/13 11:33; Start 09/13/16 at 12:00; Stop 09/13/16 at 12:01; Status DC Nicardipine HCl/ Sodium Chloride (Cardene/Iv Sodium Chloride 0.9% 250ml) 270 ml @ 0 mls/hr CONT PRN IV SEE I/O RECORD Last administered on 09/13/16 22:20; Start 09/13/16 at 12:00 Ondansetron HCl (Zofran) 4 mg PRN Q8HRS PRN IV NAUSEA/VOMITING Last administered on 09/14/16 08:31; Start 09/13/16 at 11:30; Stop 09/14/16 at 11:29; Status DC Fentanyl Citrate (Fentanyl 2ml Vial) 50 mcg PRN Q1HR PRN IV PAIN Last administered on 09/14/16 08:16; Start 09/13/16 at 11:30; Stop 09/14/16 at 11:29; Status DC Acetaminophen (Tylenol) 650 mg PRN Q4HRS PRN PO FEVER; Start 09/13/16 at 11:30; Stop 09/14/16 at 11:29; Status DC Dexamethasone Sodium Phosphate (Decadron) 2 mg Q6HRS IV ; Start 09/13/16 at 18:00 ; Stop 09/13/16 at 18:00; Status DC Gadobutrol (Gadavist) 7.5 mmol 1X ONCE IV Last administered on 09/13/16 12:56 ; Start 09/13/16 at 13:00; Stop 09/13/16 at 13:01; Status DC Dexamethasone Sodium Phosphate 4 mg 4 mg Q6HRS IV Last administered on 12:00; Start 09/13/16 at 18:00; Stop 09/18/16 at 12:11; Status DC Levetiracetam/ Sodium Chloride (Keppra/Iv Sodium Chloride 0.9% 100ml) 105 ml @ 400 mls/hr Q12HR IV Last administered on 09/18/16 09:02; Start 09/13/16 at 14: 30 Lorazepam (Ativan) 2 mg PRN Q6HRS PRN IV ANXIETY / AGITATION Last administered on 09/14/16 11:38; Start 09/13/16 at 14:15 Oxycodone/ Acetaminophen (Percocet 10/325) 1 tab PRN Q4HRS PRN PO MILD - MODERATE PAIN Last administered on 09/18/16 03:40; Start 09/13/16 at 15:00 Morphine Sulfate 15 mg 15 mg BID PO Last administered on 09/18/16 08:59; Start 09/13/16 at 15:00 Potassium Chloride/Dextrose/ Sod Cl (KCl 20 Meq In D5W-1/2 NS) 1,000 ml @ 100 mls/hr 1X ONCE IV Last administered on 09/13/16 16:33; Start 09/13/16 at 15:00 ; Stop 09/14/16 at 00:59; Status DC Iohexol (Omnipaque 300 Mg/ml) 75 ml 1X ONCE IV Last administered on 09/14/16 08:40; Start 09/14/16 at 08:00; Stop 09/14/16 at 08:01; Status DC Info (Do NOT chart on this entry -- for MONITORING) 1 each PRN DAILY PRN MC SEE COMMENTS; Start 09/14/16 at 08:00; Stop 09/16/16 at 07:59; Status DC Ondansetron HCl (Zofran) 4 mg PRN Q6HRS PRN IV Nausea; Start 09/15/16 at 07:00; Stop 09/16/16 at 06:59; Status DC Fentanyl Citrate (Fentanyl 2ml Vial) 25 mcg PRN Q5MIN PRN IV MILD PAIN Last administered on 09/14/16 21:15; Start 09/15/16 at 07:00; Stop 09/16/16 at 06:59; Status DC Fentanyl Citrate (Fentanyl 2ml Vial) 50 mcg PRN Q5MIN PRN IV MODERATE PAIN Last administered on 09/15/16 15:10; Start 09/15/16 at 07:00; Stop 09/16/16 at 06: 59; Status DC Morphine Sulfate 1 mg 1 mg PRN Q10MIN PRN IV SEVERE PAIN; Start 09/15/16 at 07: 00; Stop 09/16/16 at 02:43; Status DC Lactated Ringer's (Iv Lactated Ringers) 1,000 ml @ 0 mls/hr Q0M IV Last administered on 09/15/16 09:16; Start 09/15/16 at 07:00; Stop 09/15/16 at 18:59; Status DC Lidocaine HCl 2 ml 1X PRN PRN ID IV START; Start 09/15/16 at 07:00; Stop at 06:59; Status DC Hydromorphone HCl (Dilaudid) 0.5 mg PRN Q10MIN PRN IV SEVERE PAIN, Second choice Last administered on 09/16/16 01:48; Start 09/15/16 at 07:00; Stop at 02:43; Status DC Prochlorperazine Edisylate (Compazine) 5 mg PACU PRN PRN IV NAUSEA; Start at 07:00; Stop 09/16/16 at 06:59; Status DC Fentanyl Citrate 25 mcg 25 mcg PRN Q1HR PRN IV MODERATE PAIN 1ST CHOICE Last administered on 09/17/16 09:25; Start 09/14/16 at 12:30 Bacitracin 08040 unit/Sodium Chloride 1,000 ml @ 1,000 mls/hr 1X PERIOP ONCE IRR Last administered on 09/15/16 10:33; Start 09/15/16 at 08:00; Stop 09/15/16 at 08:59; Status DC Potassium Chloride/Dextrose/ Sod Cl 1,000 ml @ 40 mls/hr 1X ONCE IV Last administered on 09/14/16 17:30; Start 09/14/16 at 17:30; Stop 09/15/16 at 18:29; Status DC Potassium Chloride/Dextrose/ Sodium Chloride (Iv D5% - 1/2 NS) 1,010 ml @ 40 mls/hr Q24H IV ; Start 09/14/16 at 23:15; Status UNV Fentanyl Citrate 50 mcg 50 mcg PRN Q2HR PRN IV SEVERE PAIN Last administered on 09/15/16 04:29; Start 09/14/16 at 23:15; Stop 09/15/16 at 14:35; Status DC Potassium Chloride/Dextrose/ Sod Cl (KCl 20 Meq In D5W-1/2 NS) 1,000 ml @ 40 mls/hr Q24H IV Last administered on 09/14/16 23:33; Start 09/14/16 at 23:30; Stop 09/16/16 at 19:44; Status DC Lidocaine/ Epinephrine (Xylocaine 1%-Epi 1:100,000) 20 ml STK-MED ONCE .ROUTE Last administered on 09/15/16 10:33; Start 09/15/16 at 06:41; Stop 09/15/16 at 06: 42; Status DC Thrombin 20,000 unit STK-MED ONCE TP Last administered on 09/15/16 10:33; Start 09/15/16 at 06:42; Stop 09/15/16 at 06:43; Status DC Gelatin (Gelfoam Powder) 1 gm STK-MED ONCE .ROUTE Last administered on 10:33; Start 09/15/16 at 06:42; Stop 09/15/16 at 06:43; Status DC Gelatin (Gelfoam Size 100) 1 each STK-MED ONCE .ROUTE ; Start 09/15/16 at 06:42 ; Stop 09/15/16 at 06:43; Status DC Povidone Iodine ( Betadine Oint) 28 domenica STK-MED ONCE TP ; Start 09/15/16 at 06:43 ; Stop 09/15/16 at 06:44; Status DC Bacitracin 14 domenica STK-MED ONCE TP Last administered on 09/15/16 10:33; Start at 06:43; Stop 09/15/16 at 06:44; Status DC Gadobutrol (Gadavist) 6 mmol 1X ONCE IV Last administered on 09/15/16 08:43; Start 09/15/16 at 08:15; Stop 09/15/16 at 08:19; Status DC Dexamethasone Sodium Phosphate (Decadron) 20 mg STK-MED ONCE .ROUTE ; Start 09/15 at 08:54; Stop 09/15/16 at 08:55; Status DC Ondansetron HCl 4 mg 4 mg STK-MED ONCE .ROUTE ; Start 09/15/16 at 08:54; Stop 09/15/16 at 08:55; Status DC Propofol 50 ml @ As Directed STK-MED ONCE IV ; Start 09/15/16 at 08:54; Stop 09/15 at 08:55; Status DC Propofol (Diprivan) 20 ml @ As Directed STK-MED ONCE IV ; Start 09/15/16 at 08:54 ; Stop 09/15/16 at 08:55; Status DC Lidocaine HCl 100 mg STK-MED ONCE .ROUTE ; Start 09/15/16 at 08:54; Stop 09/15/16 at 08:55; Status DC Fentanyl Citrate (Fentanyl 2ml Vial) 100 mcg STK-MED ONCE .ROUTE ; Start at 08:54; Stop 09/15/16 at 08:55; Status DC Remifentanil HCl (Ultiva) 2 mg STK-MED ONCE IV ; Start 09/15/16 at 08:54; Stop at 08:55; Status DC Sodium Chloride (Sodium Chloride) 50 ml STK-MED ONCE IJ ; Start 09/15/16 at 08:55 ; Stop 09/15/16 at 08:56; Status DC Rocuronium Warren (Zemuron) 50 mg STK-MED ONCE .ROUTE ; Start 09/15/16 at 09:00 ; Stop 09/15/16 at 09:01; Status DC Midazolam HCl 2 mg 2 mg STK-MED ONCE .ROUTE ; Start 09/15/16 at 09:02; Stop at 09:03; Status DC Cefazolin Sodium/ Dextrose 50 ml @ As Directed STK-MED ONCE IV ; Start 09/15/16 at 09:12; Stop 09/15/16 at 09:13; Status DC Cefazolin Sodium/ Dextrose 50 ml @ 100 mls/hr 1X ONCE IV ; Start 09/15/16 at 09 :15; Stop 09/15/16 at 09:44; Status UNV Cefazolin Sodium/ Dextrose (Ancef 2gm Premix) 50 ml @ 100 mls/hr 1X ONCE IV Last administered on 09/15/16 10:11; Start 09/15/16 at 09:30; Stop 09/15/16 at 09: 59; Status DC Cellulose 1 each STK-MED ONCE .ROUTE Last administered on 09/15/16 10:33; Start 09/15/16 at 10:13; Stop 09/15/16 at 10:14; Status DC Mannitol (Mannitol) 12.5 g STK-MED ONCE .ROUTE ; Start 09/15/16 at 10:14; Stop at 10:15; Status DC Gelatin (Gelfoam Size 100) 1 each STK-MED ONCE .ROUTE ; Start 09/15/16 at 10:14 ; Stop 09/15/16 at 10:15; Status DC Phenylephrine HCl 1 mg STK-MED ONCE IV ; Start 09/15/16 at 10:34; Stop 09/15/16 at 10:35; Status DC Irrigating Solution (Duovisc Kit) 1 kit STK-MED ONCE .ROUTE ; Start 09/15/16 at 12:58; Stop 09/15/16 at 12:59; Status DC Multi-Ingred Cream/Lotion/Oil/ Oint (Artificial Tears Eye Oint) 7 domenica STK-MED ONCE .ROUTE ; Start 09/15/16 at 13:19; Stop 09/15/16 at 13:20; Status DC Fentanyl Citrate (Fentanyl 2ml Vial) 50 mcg PRN Q1HR PRN IV SEVERE PAIN Last administered on 09/16/16 14:24; Start 09/15/16 at 14:15; Stop 09/17/16 at 09:32; Status DC Fentanyl Citrate 25 mcg 25 mcg PRN Q1HR PRN IV SEVERE PAIN; Start 09/15/16 at 14 :15; Stop 09/15/16 at 14:35; Status DC Nicardipine HCl/ Sodium Chloride (Cardene/Iv Sodium Chloride 0.9% 250ml) 270 ml @ 27 mls/hr ONCE ONCE IV Last administered on 09/15/16 14:26; Start 09/15/16 at 14:30; Stop 09/16/16 at 00:29; Status DC Ketorolac Tromethamine (Toradol) 30 mg 1X ONCE IV Last administered on 21:03; Start 09/15/16 at 20:45; Stop 09/15/16 at 20:46; Status DC Ketorolac Tromethamine (Toradol) 15 mg PRN Q6HRS PRN IV INFLAMMATION/PAIN Last administered on 09/18/16 06:16; Start 09/16/16 at 03:00; Stop 09/21/16 at 02:59 Hydromorphone HCl (Dilaudid) 0.4 mg PRN Q4HRS PRN IVP MODERATE PAIN 2ND CHOICE Last administered on 09/17/16 15:58; Start 09/16/16 at 02:45 Ondansetron HCl (Zofran) 4 mg STK-MED ONCE .ROUTE ; Start 09/16/16 at 10:42; Stop 09/16/16 at 10:43; Status DC Ondansetron HCl (Zofran) 4 mg 1X ONCE IV Last administered on 09/16/16 11:00; Start 09/16/16 at 11:00; Stop 09/16/16 at 11:01; Status DC Gadobutrol (Gadavist) 6 mmol 1X ONCE IV Last administered on 09/16/16 11:00; Start 09/16/16 at 11:00; Stop 09/16/16 at 11:01; Status DC Methocarbamol (Robaxin) 750 mg PRN Q6HRS PRN PO MUSCLE SPASMS Last administered on 09/18/16 10:41; Start 09/16/16 at 15:30 Oxycodone/ Acetaminophen (Percocet 10/325) 2 tab PRN Q4HRS PRN PO MODERATE PAIN Last administered on 09/18/16 12:03; Start 09/16/16 at 15:30 Dexamethasone Sodium Phosphate (Decadron) 4 mg Q8HRS PO ; Start 09/18/16 at 14: 00 Magnesium Hydroxide (Milk Of Magnesia) 2,400 mg PRN DAILY PRN PO CONSTIPATION; Start 09/18/16 at 12:15 Docusate Sodium (Colace) 100 mg DAILY PO ; Start 09/18/16 at 13:00 Senna/Docusate Sodium (Senna Plus) 1 tab PRN BID PRN PO CONSTIPATION; Start 06/24 at 12:15 Dexamethasone (Decadron) 4 mg Q8HRS PO ; Start 09/19/16 at 06:00; Stop 09/22/16 at 22:01 Dexamethasone (Decadron) 4 mg Q12HR PO ; Start 09/23/16 at 09:00; Stop 09/26/16 at 21:01 Dexamethasone (Decadron) 2 mg Q8HRS PO ; Start 09/27/16 at 06:00; Stop 09/30/16 at 22:01 Dexamethasone (Decadron) 2 mg Q12HR PO ; Start 10/01/16 at 09:00; Stop 10/04/16 at 21:01 Dexamethasone (Decadron) 2 mg DAILYWBKFT PO ; Start 10/05/16 at 08:00; Stop 10/08 at 08:01 Active Scripts Active Reported Protonix (Pantoprazole Sodium) 20 Mg Tablet.dr 1 Tab PO DAILY DURAGESIC 75mcg/hr (Fentanyl) 1 Each Patch.td72 1 Patch TD Q72H Percocet 10-325 Mg Tablet (Oxycodone/Acetaminophen) 1 Each Tablet 1 Tab PO Q4- 6HRS Vitals/I & O Vital Sign - Last 24 Hours 09/17/16 09/17/16 09/17/16 09/17/16 15:00 15:58 16:40 16:53 Temp 97.7 97.7 Pulse 61 Resp 19 18 B/P 164/72 Pulse Ox 98 97 O2 Delivery Room Air Room Air Room Air 09/17/16 09/17/16 09/17/16 09/17/16 17:55 19:25 19:25 20:54 Temp 97.9 97.9 Pulse 59 Resp 18 20 B/P 166/75 Pulse Ox 97 97 O2 Delivery Room Air Room Air Room Air Room Air 09/17/16 09/18/16 09/18/16 09/18/16 23:21 00:55 03:20 03:40 Temp 97.9 98.1 97.9 98.1 Pulse 59 52 Resp 18 20 18 20 B/P 162/82 175/83 Pulse Ox 96 96 96 96 O2 Delivery Room Air Room Air Room Air Room Air 09/18/16 09/18/16 09/18/16 09/18/16 04:40 07:00 07:00 08:59 Temp 97.6 97.6 Pulse 51 Resp 20 18 B/P 164/78 Pulse Ox 96 96 O2 Delivery Room Air Room Air Room Air Room Air 09/18/16 09/18/16 11:00 12:03 Temp 97.7 97.7 Pulse 54 Resp 18 B/P 159/72 Pulse Ox 96 O2 Delivery Room Air Room Air Intake and Output 09/17/16 09/17/16 09/18/16 15:00 23:00 07:00 Intake Total 210 ml 120 ml 220 ml Output Total 370 ml 150 ml 450 ml Balance -160 ml -30 ml -230 ml MARIOLA WASHINGTON MD Sep 18, 2016 13:50
[2016-09-18] MEDS ORDERED: DEXAMETHASONE SOD PHOS 4 MG/ML VIAL PO SCH (14:00)
[2016-09-18] MEDS: DEXAMETHASONE 4 MG TABLET PO SCH ×2 (14:26→21:24)
[2016-09-18] MEDS: DOCUSATE SODIUM 100 MG CAPSULE PO SCH (14:26)
[2016-09-18 15:00] VITALS: BP 142/82
[2016-09-18 19:20] VITALS: BP 142/67
[2016-09-18] MEDS: SENNOSIDES/DOCUSATE 8.6/50MG TABLET. PO PRN (22:43)
[2016-09-18 23:20] VITALS: BP 139/80
[2016-09-19] MEDS: DEXAMETHASONE 4 MG TABLET PO SCH ×3 (05:03→21:01)
[2016-09-19] MEDS: KETOROLAC 15 MG/ML VIAL. IV PRN (05:03)
[2016-09-19] MEDS: OXYCODONE/APAP 10/325 TABLET. PO PRN ×2 (05:04→17:47)
[2016-09-19 07:00] VITALS: BP 150/79
[2016-09-19] MEDS: DOCUSATE SODIUM 100 MG CAPSULE PO SCH (08:46)
[2016-09-19] MEDS: LEVETIRACETAM 500 MG in IV NORMAL SALINE 100ML 100 ML IV SCH (08:46)
[2016-09-19] MEDS: MORPHINE ER 15 MG TABLET.ER PO SCH ×2 (08:46→21:01)
[2016-09-19 11:00] VITALS: BP 139/75
--- NOTE | 2016-09-19 12:12 | PDOC ---
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 Plan s/p resection of right cerebellar mass, Pain control follow NS recommendations. Decadron taper SNU placement PT/OT d/w family at bedside. History of Present Illness History of Present Illness no fever headaches better Vitals Vitals Vital Signs Date Time Temp Pulse Resp B/P Pulse Ox O2 Delivery O2 Flow Rate FiO2 09/19/16 08:46 Nasal Cannula 09/19/16 07:00 97.8 50 18 150/79 96 97.8 Physical Exam General: Alert, Oriented X3, Cooperative, No acute distress Heart: Regular rate, Normal S1, Normal S2 Lungs: Clear Abdomen: Normal bowel sounds, Soft Extremities: No edema Assessment and Plan Assessmemt and Plan Problems Medical Problems: (1) Cerebellar mass Status: Acute (2) Intracranial hemorrhage Status: Acute Problems: Comment Review of Relevant I have reviewed the following items samara (where applicable) has been applied. Medications Current Medications Sodium Chloride (Iv Sodium Chloride 0.9% 1000ml Bag) 1,000 ml @ 1,000 mls/hr Q1H IV Last administered on 09/13/16 11:20; Start 09/13/16 at 10:44; Stop at 11:43; Status DC Fentanyl Citrate (Fentanyl 2ml Vial) 50 mcg 1X ONCE IV Last administered on 11:20; Start 09/13/16 at 10:45; Stop 09/13/16 at 10:53; Status DC Meclizine HCl 25 mg 25 mg 1X ONCE PO Last administered on 09/13/16 11:19; Start 09/13/16 at 10:45; Stop 09/13/16 at 10:53; Status DC Nicardipine HCl/ Sodium Chloride (Cardene/Iv Sodium Chloride 0.9% 250ml) 270 ml @ 0 mls/hr CONT PRN IV SEE I/O RECORD; Start 09/13/16 at 11:15; Stop 09/13/16 at 11:22; Status DC Dexamethasone Sodium Phosphate 10 mg 10 mg 1X ONCE IV Last administered on 09/13 11:33; Start 09/13/16 at 12:00; Stop 09/13/16 at 12:01; Status DC Nicardipine HCl/ Sodium Chloride (Cardene/Iv Sodium Chloride 0.9% 250ml) 270 ml @ 0 mls/hr CONT PRN IV SEE I/O RECORD Last administered on 09/13/16 22:20; Start 09/13/16 at 12:00; Stop 09/18/16 at 14:50; Status DC Ondansetron HCl (Zofran) 4 mg PRN Q8HRS PRN IV NAUSEA/VOMITING Last administered on 09/14/16 08:31; Start 09/13/16 at 11:30; Stop 09/14/16 at 11:29; Status DC Fentanyl Citrate (Fentanyl 2ml Vial) 50 mcg PRN Q1HR PRN IV PAIN Last administered on 09/14/16 08:16; Start 09/13/16 at 11:30; Stop 09/14/16 at 11:29; Status DC Acetaminophen (Tylenol) 650 mg PRN Q4HRS PRN PO FEVER; Start 09/13/16 at 11:30; Stop 09/14/16 at 11:29; Status DC Dexamethasone Sodium Phosphate (Decadron) 2 mg Q6HRS IV ; Start 09/13/16 at 18:00 ; Stop 09/13/16 at 18:00; Status DC Gadobutrol (Gadavist) 7.5 mmol 1X ONCE IV Last administered on 09/13/16 12:56 ; Start 09/13/16 at 13:00; Stop 09/13/16 at 13:01; Status DC Dexamethasone Sodium Phosphate 4 mg 4 mg Q6HRS IV Last administered on 12:00; Start 09/13/16 at 18:00; Stop 09/18/16 at 12:11; Status DC Levetiracetam/ Sodium Chloride (Keppra/Iv Sodium Chloride 0.9% 100ml) 105 ml @ 400 mls/hr Q12HR IV Last administered on 09/19/16 08:46; Start 09/13/16 at 14: 30 Lorazepam (Ativan) 2 mg PRN Q6HRS PRN IV ANXIETY / AGITATION Last administered on 09/14/16 11:38; Start 09/13/16 at 14:15 Oxycodone/ Acetaminophen (Percocet 10/325) 1 tab PRN Q4HRS PRN PO MILD - MODERATE PAIN Last administered on 09/18/16 22:43; Start 09/13/16 at 15:00 Morphine Sulfate 15 mg 15 mg BID PO Last administered on 09/19/16 08:46; Start 09/13/16 at 15:00 Potassium Chloride/Dextrose/ Sod Cl (KCl 20 Meq In D5W-1/2 NS) 1,000 ml @ 100 mls/hr 1X ONCE IV Last administered on 09/13/16 16:33; Start 09/13/16 at 15:00 ; Stop 09/14/16 at 00:59; Status DC Iohexol (Omnipaque 300 Mg/ml) 75 ml 1X ONCE IV Last administered on 09/14/16 08:40; Start 09/14/16 at 08:00; Stop 09/14/16 at 08:01; Status DC Info (Do NOT chart on this entry -- for MONITORING) 1 each PRN DAILY PRN MC SEE COMMENTS; Start 09/14/16 at 08:00; Stop 09/16/16 at 07:59; Status DC Ondansetron HCl (Zofran) 4 mg PRN Q6HRS PRN IV Nausea; Start 09/15/16 at 07:00; Stop 09/16/16 at 06:59; Status DC Fentanyl Citrate (Fentanyl 2ml Vial) 25 mcg PRN Q5MIN PRN IV MILD PAIN Last administered on 09/14/16 21:15; Start 09/15/16 at 07:00; Stop 09/16/16 at 06:59; Status DC Fentanyl Citrate (Fentanyl 2ml Vial) 50 mcg PRN Q5MIN PRN IV MODERATE PAIN Last administered on 09/15/16 15:10; Start 09/15/16 at 07:00; Stop 09/16/16 at 06: 59; Status DC Morphine Sulfate 1 mg 1 mg PRN Q10MIN PRN IV SEVERE PAIN; Start 09/15/16 at 07: 00; Stop 09/16/16 at 02:43; Status DC Lactated Ringer's (Iv Lactated Ringers) 1,000 ml @ 0 mls/hr Q0M IV Last administered on 09/15/16 09:16; Start 09/15/16 at 07:00; Stop 09/15/16 at 18:59; Status DC Lidocaine HCl 2 ml 1X PRN PRN ID IV START; Start 09/15/16 at 07:00; Stop at 06:59; Status DC Hydromorphone HCl (Dilaudid) 0.5 mg PRN Q10MIN PRN IV SEVERE PAIN, Second choice Last administered on 09/16/16 01:48; Start 09/15/16 at 07:00; Stop at 02:43; Status DC Prochlorperazine Edisylate (Compazine) 5 mg PACU PRN PRN IV NAUSEA; Start at 07:00; Stop 09/16/16 at 06:59; Status DC Fentanyl Citrate 25 mcg 25 mcg PRN Q1HR PRN IV MODERATE PAIN 1ST CHOICE Last administered on 09/17/16 09:25; Start 09/14/16 at 12:30 Bacitracin 40297 unit/Sodium Chloride 1,000 ml @ 1,000 mls/hr 1X PERIOP ONCE IRR Last administered on 09/15/16 10:33; Start 09/15/16 at 08:00; Stop 09/15/16 at 08:59; Status DC Potassium Chloride/Dextrose/ Sod Cl 1,000 ml @ 40 mls/hr 1X ONCE IV Last administered on 09/14/16 17:30; Start 09/14/16 at 17:30; Stop 09/15/16 at 18:29; Status DC Potassium Chloride/Dextrose/ Sodium Chloride (Iv D5% - 1/2 NS) 1,010 ml @ 40 mls/hr Q24H IV ; Start 09/14/16 at 23:15; Status UNV Fentanyl Citrate 50 mcg 50 mcg PRN Q2HR PRN IV SEVERE PAIN Last administered on 09/15/16 04:29; Start 09/14/16 at 23:15; Stop 09/15/16 at 14:35; Status DC Potassium Chloride/Dextrose/ Sod Cl (KCl 20 Meq In D5W-1/2 NS) 1,000 ml @ 40 mls/hr Q24H IV Last administered on 09/14/16 23:33; Start 09/14/16 at 23:30; Stop 09/16/16 at 19:44; Status DC Lidocaine/ Epinephrine (Xylocaine 1%-Epi 1:100,000) 20 ml STK-MED ONCE .ROUTE Last administered on 09/15/16 10:33; Start 09/15/16 at 06:41; Stop 09/15/16 at 06: 42; Status DC Thrombin 20,000 unit STK-MED ONCE TP Last administered on 09/15/16 10:33; Start 09/15/16 at 06:42; Stop 09/15/16 at 06:43; Status DC Gelatin (Gelfoam Powder) 1 gm STK-MED ONCE .ROUTE Last administered on 10:33; Start 09/15/16 at 06:42; Stop 09/15/16 at 06:43; Status DC Gelatin (Gelfoam Size 100) 1 each STK-MED ONCE .ROUTE ; Start 09/15/16 at 06:42 ; Stop 09/15/16 at 06:43; Status DC Povidone Iodine ( Betadine Oint) 28 domenica STK-MED ONCE TP ; Start 09/15/16 at 06:43 ; Stop 09/15/16 at 06:44; Status DC Bacitracin 14 domenica STK-MED ONCE TP Last administered on 09/15/16 10:33; Start at 06:43; Stop 09/15/16 at 06:44; Status DC Gadobutrol (Gadavist) 6 mmol 1X ONCE IV Last administered on 09/15/16 08:43; Start 09/15/16 at 08:15; Stop 09/15/16 at 08:19; Status DC Dexamethasone Sodium Phosphate (Decadron) 20 mg STK-MED ONCE .ROUTE ; Start 09/15 at 08:54; Stop 09/15/16 at 08:55; Status DC Ondansetron HCl 4 mg 4 mg STK-MED ONCE .ROUTE ; Start 09/15/16 at 08:54; Stop 09/15/16 at 08:55; Status DC Propofol 50 ml @ As Directed STK-MED ONCE IV ; Start 09/15/16 at 08:54; Stop 09/15 at 08:55; Status DC Propofol (Diprivan) 20 ml @ As Directed STK-MED ONCE IV ; Start 09/15/16 at 08:54 ; Stop 09/15/16 at 08:55; Status DC Lidocaine HCl 100 mg STK-MED ONCE .ROUTE ; Start 09/15/16 at 08:54; Stop 09/15/16 at 08:55; Status DC Fentanyl Citrate (Fentanyl 2ml Vial) 100 mcg STK-MED ONCE .ROUTE ; Start at 08:54; Stop 09/15/16 at 08:55; Status DC Remifentanil HCl (Ultiva) 2 mg STK-MED ONCE IV ; Start 09/15/16 at 08:54; Stop at 08:55; Status DC Sodium Chloride (Sodium Chloride) 50 ml STK-MED ONCE IJ ; Start 09/15/16 at 08:55 ; Stop 09/15/16 at 08:56; Status DC Rocuronium [place] (Zemuron) 50 mg STK-MED ONCE .ROUTE ; Start 09/15/16 at 09:00 ; Stop 09/15/16 at 09:01; Status DC Midazolam HCl 2 mg 2 mg STK-MED ONCE .ROUTE ; Start 09/15/16 at 09:02; Stop at 09:03; Status DC Cefazolin Sodium/ Dextrose 50 ml @ As Directed STK-MED ONCE IV ; Start 09/15/16 at 09:12; Stop 09/15/16 at 09:13; Status DC Cefazolin Sodium/ Dextrose 50 ml @ 100 mls/hr 1X ONCE IV ; Start 09/15/16 at 09 :15; Stop 09/15/16 at 09:44; Status UNV Cefazolin Sodium/ Dextrose (Ancef 2gm Premix) 50 ml @ 100 mls/hr 1X ONCE IV Last administered on 09/15/16 10:11; Start 09/15/16 at 09:30; Stop 09/15/16 at 09: 59; Status DC Cellulose 1 each STK-MED ONCE .ROUTE Last administered on 09/15/16 10:33; Start 09/15/16 at 10:13; Stop 09/15/16 at 10:14; Status DC Mannitol (Mannitol) 12.5 g STK-MED ONCE .ROUTE ; Start 09/15/16 at 10:14; Stop at 10:15; Status DC Gelatin (Gelfoam Size 100) 1 each STK-MED ONCE .ROUTE ; Start 09/15/16 at 10:14 ; Stop 09/15/16 at 10:15; Status DC Phenylephrine HCl 1 mg STK-MED ONCE IV ; Start 09/15/16 at 10:34; Stop 09/15/16 at 10:35; Status DC Irrigating Solution (Duovisc Kit) 1 kit STK-MED ONCE .ROUTE ; Start 09/15/16 at 12:58; Stop 09/15/16 at 12:59; Status DC Multi-Ingred Cream/Lotion/Oil/ Oint (Artificial Tears Eye Oint) 7 domenica STK-MED ONCE .ROUTE ; Start 09/15/16 at 13:19; Stop 09/15/16 at 13:20; Status DC Fentanyl Citrate (Fentanyl 2ml Vial) 50 mcg PRN Q1HR PRN IV SEVERE PAIN Last administered on 09/16/16 14:24; Start 09/15/16 at 14:15; Stop 09/17/16 at 09:32; Status DC Fentanyl Citrate 25 mcg 25 mcg PRN Q1HR PRN IV SEVERE PAIN; Start 09/15/16 at 14 :15; Stop 09/15/16 at 14:35; Status DC Nicardipine HCl/ Sodium Chloride (Cardene/Iv Sodium Chloride 0.9% 250ml) 270 ml @ 27 mls/hr ONCE ONCE IV Last administered on 09/15/16 14:26; Start 09/15/16 at 14:30; Stop 09/16/16 at 00:29; Status DC Ketorolac Tromethamine (Toradol) 30 mg 1X ONCE IV Last administered on 21:03; Start 09/15/16 at 20:45; Stop 09/15/16 at 20:46; Status DC Ketorolac Tromethamine (Toradol) 15 mg PRN Q6HRS PRN IV INFLAMMATION/PAIN Last administered on 09/19/16 05:03; Start 09/16/16 at 03:00; Stop 09/21/16 at 02:59 Hydromorphone HCl (Dilaudid) 0.4 mg PRN Q4HRS PRN IVP MODERATE PAIN 2ND CHOICE Last administered on 09/17/16 15:58; Start 09/16/16 at 02:45 Ondansetron HCl (Zofran) 4 mg STK-MED ONCE .ROUTE ; Start 09/16/16 at 10:42; Stop 09/16/16 at 10:43; Status DC Ondansetron HCl (Zofran) 4 mg 1X ONCE IV Last administered on 09/16/16 11:00; Start 09/16/16 at 11:00; Stop 09/16/16 at 11:01; Status DC Gadobutrol (Gadavist) 6 mmol 1X ONCE IV Last administered on 09/16/16 11:00; Start 09/16/16 at 11:00; Stop 09/16/16 at 11:01; Status DC Methocarbamol (Robaxin) 750 mg PRN Q6HRS PRN PO MUSCLE SPASMS Last administered on 09/18/16 16:47; Start 09/16/16 at 15:30 Oxycodone/ Acetaminophen (Percocet 10325) 2 tab PRN Q4HRS PRN PO MODERATE PAIN Last administered on 09/19/16 05:04; Start 09/16/16 at 15:30 Dexamethasone Sodium Phosphate (Decadron) 4 mg Q8HRS PO ; Start 09/18/16 at 14: 00; Stop 09/18/16 at 14:18; Status DC Magnesium Hydroxide (Milk Of Magnesia) 2,400 mg PRN DAILY PRN PO CONSTIPATION Last administered on 09/19/16 08:46; Start 09/18/16 at 12:15 Docusate Sodium (Colace) 100 mg DAILY PO Last administered on 09/19/16 08:46; Start 09/18/16 at 13:00 Senna/Docusate Sodium (Senna Plus) 1 tab PRN BID PRN PO CONSTIPATION Last administered on 09/18/16 22:43; Start 09/18/16 at 12:15 Dexamethasone (Decadron) 4 mg Q8HRS PO Last administered on 09/19/16 05:03; Start 09/19/16 at 06:00; Stop 09/22/16 at 22:01 Dexamethasone (Decadron) 4 mg Q12HR PO ; Start 09/23/16 at 09:00; Stop 09/26/16 at 21:01 Dexamethasone (Decadron) 2 mg Q8HRS PO ; Start 09/27/16 at 06:00; Stop 09/30/16 at 22:01 Dexamethasone (Decadron) 2 mg Q12HR PO ; Start 10/01/16 at 09:00; Stop 10/04/16 at 21:01 Dexamethasone (Decadron) 2 mg DAILYWBKFT PO ; Start 10/05/16 at 08:00; Stop 10/08 at 08:01 Dexamethasone (Decadron) 4 mg TID PO Last administered on 09/18/16t 21:24; Start 09/18/16 at 14:30; Stop 09/18/16 at 21:01; Status DC Active Scripts Active Reported Protonix (Pantoprazole Sodium) 20 Mg Tablet.dr 1 Tab PO DAILY DURAGESIC 75mcg/hr (Fentanyl) 1 Each Patch.td72 1 Patch TD Q72H Percocet 10-325 Mg Tablet (Oxycodone/Acetaminophen) 1 Each Tablet 1 Tab PO Q4- 6HRS Vitals/I & O Vital Sign - Last 24 Hours 09/18/16 09/18/16 09/18/16 09/18/16 14:26 15:00 18:39 19:20 Temp 97.6 98.1 97.6 98.1 Pulse 59 61 Resp 18 18 B/P 142/82 142/67 Pulse Ox 96 97 O2 Delivery Nasal Cannula Room Air Room Air Room Air 09/18/16 09/18/16 09/18/16 09/18/16 20:30 21:24 22:43 23:20 Temp 97.9 97.9 Pulse 55 Resp 18 18 18 B/P 139/80 Pulse Ox 96 O2 Delivery Room Air Room Air Room Air Room Air 09/19/16 09/19/16 09/19/16 09/19/16 00:10 01:24 05:04 07:00 Temp 97.8 97.8 Pulse 50 Resp 18 18 18 B/P 150/79 Pulse Ox 96 O2 Delivery Room Air Room Air Room Air Room Air 09/19/16 09/19/16 07:25 08:46 O2 Delivery Room Air Nasal Cannula Intake and Output 09/18/16 09/18/16 09/19/16 15:00 23:00 07:00 Intake Total 180 ml 200 ml Output Total 400 ml Balance -220 ml 200 ml MARIOLA WASHINGTON MD Sep 19, 2016 12:11
--- NOTE | 2016-09-19 14:14 | PDOC ---
SUBJECTIVE Subjective Denies acute complaints. Reports ambulation/dysequilibrium continues to gradually improve each day. Denies diplopia. Pain controlled with present regimen. Has been voiding since taylor discontinued. No BM yet. OBJECTIVE Vital Signs Vital Signs Date Time Temp Pulse Resp B/P Pulse Ox O2 Delivery O2 Flow Rate FiO2 09/19/16 12:50 Room Air 09/19/16 11:00 98.2 64 16 139/75 94 Room Air 98.2 09/19/16 08:46 Nasal Cannula 09/19/16 07:25 Room Air 09/19/16 07:00 97.8 50 18 150/79 96 Room Air 97.8 09/19/16 05:04 18 Room Air 09/19/16 00:10 18 Room Air 09/18/16 23:20 97.9 55 18 139/80 96 Room Air 97.9 09/18/16 22:43 18 Room Air 09/18/16 21:24 18 Room Air 09/18/16 20:30 Room Air 09/18/16 19:20 98.1 61 18 142/67 97 Room Air 98.1 09/18/16 18:39 Room Air 09/18/16 15:00 97.6 59 18 142/82 96 Room Air 97.6 09/18/16 14:26 Nasal Cannula I & O Intake and Output 09/19/16 07:00 Intake Total 380 ml Output Total 400 ml Balance -20 ml Intake Oral 380 ml Output Urine Total 400 ml # Voids 1 PHYSICAL EXAM Physical Exam AAOx4, NAD, posterior neck incision c/d/i flat with shelly, pupils equal, EOMI without diplopia, reports right hearing improved, RAMESH 5/5, sensation intact LT, cerebellar function improving ASSESSMENT/PLAN Assessment/Plan POD 4 suboccipital craniectomy with cerebellar mass resection -neurologically stable and improving - overall appears to be recovering well from surgery thus far -metastatic disease adeno - will receive adjunctive tx with his primary oncologist after d/c -continue therapies, increase activity as able -bowel regimen -steroid taper to off next few weeks as ordered (to be continued as ordered after discharge from hospital) -pharmacological dvt ppx okay from NS standpoint -keppra per neurology, no seizures -okay for d/c from NS standpoint when appropriate arrangements made and clear to do so by other services - SNU placement pending -upon d/c, will need follow-up with NS 2 weeks post-op for incision check and staple removal -upon d/c, will have activity restriction of no lifting over 10lbs and no strenuous activity -incision may be open to air or may have breathable gauze and tape as needed Problems: BHARTI VALADEZ MD Sep 19, 2016 14:14
[2016-09-19 15:00] VITALS: BP 143/74
[2016-09-19 19:17] VITALS: BP 130/85
[2016-09-19] MEDS: LEVETIRACETAM 500 MG TABLET PO SCH (21:00)
[2016-09-19] MEDS: SENNOSIDES/DOCUSATE 8.6/50MG TABLET. PO PRN (21:05)
[2016-09-19 23:22] VITALS: BP 153/85
[2016-09-20] MEDS: OXYCODONE/APAP 10/325 TABLET. PO PRN ×2 (03:05→13:13)
[2016-09-20 03:25] VITALS: BP 173/90
[2016-09-20] MEDS: DEXAMETHASONE 4 MG TABLET PO SCH ×2 (06:05→13:12)
[2016-09-20 07:00] VITALS: BP 149/82
--- NOTE | 2016-09-20 08:32 | PDOC ---
PROGRESS NOTES Chief Complaint Chief Complaint KRUGER Cerebellar mass ASSESSMENT AND PLAN: 1. Cerebellar mass: s/p resection on 09/[address] Moreno; ?met esophageal CA. steroid taper 2. Pain control: adequate 3. Esophageal CA: locally advanced esophageal cancer s/p neoadjuvant chemoradiation followed by esophagectomy in [place], [place]. to return to primary onc upon D/C 4. Dispo: SNF when bed available Vitals Vitals Vital Signs Date Time Temp Pulse Resp B/P Pulse Ox O2 Delivery O2 Flow Rate FiO2 09/20/16 07:20 Room Air 09/20/16 07:00 97.8 41 16 149/82 96 97.8 Physical Exam General: Alert, Oriented X3, Cooperative, No acute distress Heart: Regular rate, Normal S1, Normal S2 Lungs: Clear Abdomen: Normal bowel sounds, Soft Extremities: No edema Skin: No rashes Review of Systems Review of Systems feels ok, pain well controlled. eager to leave the hospital BHARGAV PERALTA MD Sep 20, 2016 08:32
[2016-09-20] MEDS ORDERED: MAGNESIUM CITRATE 296 ML SOLUTION. PO PRN (09:15)
--- NOTE | 2016-09-20 09:19 | PDOC ---
Subjective: Subjective: Onc f/u- Esophageal cancer Pt qwith severe constipation. Working on ambulating again. Planning for inpt rehab closer to home. Headaches controlled. Objective: Vital Signs: Vital Signs Date Time Temp Pulse Resp B/P Pulse Ox O2 Delivery O2 Flow Rate FiO2 09/20/16 07:20 Room Air 09/20/16 07:00 97.8 41 16 149/82 96 97.8 Physical Exam: Heart: Regular rate General: No acute distress Psych/Mental Status: Mental status NL, Mood NL Labs/Imaging: None new Assessment/Plan A/P: 1. 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 Douglas Aragon. I have called his office to discuss pt's hospital course and findings. Planning for rehab in [place]. 2. Constipation due to pain meds. Mag citrate, miralax ordered. Ok to dc from med onc [facility]. ERCI KAY DO Sep 20, 2016 09:19
[2016-09-20] MEDS: MORPHINE ER 15 MG TABLET.ER PO SCH (09:32)
[2016-09-20] MEDS: LEVETIRACETAM 500 MG TABLET PO SCH (09:32)
[2016-09-20] MEDS: DOCUSATE SODIUM 100 MG CAPSULE PO SCH (09:33)
--- NOTE | 2016-09-20 09:55 | PDOC ---
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 Status-post resection Multiple small metastatic lesions in bilateral hemispheres. Cerebral edema. Esophageal cancer adenocarcinoma s/p surgical resection about 5 months ago. Plan Decadron 4 mg IV q6h, duration per Neurosurgery. Keppra 500 mg bid., switched to oral. Subjective No complaints, denies pain Objective Vital Signs Date Time Temp Pulse Resp B/P Pulse Ox O2 Delivery O2 Flow Rate FiO2 09/20/16 09:32 Room Air 09/20/16 07:00 97.8 41 16 149/82 96 97.8 Intake and Output 09/20/16 07:00 Intake Total 1490 ml Output Total 300 ml Balance 1190 ml Intake Oral 1490 ml Output Urine Total 300 ml PHYSICAL EXAM Alert. Oriented to time, place and person. PERRL. EOMI. CN: no focal findings. Muscle tone: normal. Muscle strength: 4/5 DTR: 2+ Plantar reflex: flexor Gait: not examined in bed. Sensory exam: no abnormal findings. Bilateral dysmetria, worse on the right, mild. Review of Relevant I have reviewed the following items samara (where applicable) has been applied. Medications Current Medications Sodium Chloride (Iv Sodium Chloride 0.9% 1000ml Bag) 1,000 ml @ 1,000 mls/hr Q1H IV Last administered on 09/13/16 11:20; Start 09/13/16 at 10:44; Stop at 11:43; Status DC Fentanyl Citrate (Fentanyl 2ml Vial) 50 mcg 1X ONCE IV Last administered on 11:20; Start 09/13/16 at 10:45; Stop 09/13/16 at 10:53; Status DC Meclizine HCl 25 mg 25 mg 1X ONCE PO Last administered on 09/13/16 11:19; Start 09/13/16 at 10:45; Stop 09/13/16 at 10:53; Status DC Nicardipine HCl/ Sodium Chloride (Cardene/Iv Sodium Chloride 0.9% 250ml) 270 ml @ 0 mls/hr CONT PRN IV SEE I/O RECORD; Start 09/13/16 at 11:15; Stop 09/13/16 at 11:22; Status DC Dexamethasone Sodium Phosphate 10 mg 10 mg 1X ONCE IV Last administered on 09/13 11:33; Start 09/13/16 at 12:00; Stop 09/13/16 at 12:01; Status DC Nicardipine HCl/ Sodium Chloride (Cardene/Iv Sodium Chloride 0.9% 250ml) 270 ml @ 0 mls/hr CONT PRN IV SEE I/O RECORD Last administered on 09/13/16 22:20; Start 09/13/16 at 12:00; Stop 09/18/16 at 14:50; Status DC Ondansetron HCl (Zofran) 4 mg PRN Q8HRS PRN IV NAUSEA/VOMITING Last administered on 09/14/16 08:31; Start 09/13/16 at 11:30; Stop 09/14/16 at 11:29; Status DC Fentanyl Citrate (Fentanyl 2ml Vial) 50 mcg PRN Q1HR PRN IV PAIN Last administered on 09/14/16 08:16; Start 09/13/16 at 11:30; Stop 09/14/16 at 11:29; Status DC Acetaminophen (Tylenol) 650 mg PRN Q4HRS PRN PO FEVER; Start 09/13/16 at 11:30; Stop 09/14/16 at 11:29; Status DC Dexamethasone Sodium Phosphate (Decadron) 2 mg Q6HRS IV ; Start 09/13/16 at 18:00 ; Stop 09/13/16 at 18:00; Status DC Gadobutrol (Gadavist) 7.5 mmol 1X ONCE IV Last administered on 09/13/16 12:56 ; Start 09/13/16 at 13:00; Stop 09/13/16 at 13:01; Status DC Dexamethasone Sodium Phosphate 4 mg 4 mg Q6HRS IV Last administered on 12:00; Start 09/13/16 at 18:00; Stop 09/18/16 at 12:11; Status DC Levetiracetam/ Sodium Chloride (Keppra/Iv Sodium Chloride 0.9% 100ml) 105 ml @ 400 mls/hr Q12HR IV Last administered on 09/19/16 08:46; Start 09/13/16 at 14: 30; Stop 09/19/16 at 15:14; Status DC Lorazepam (Ativan) 2 mg PRN Q6HRS PRN IV ANXIETY / AGITATION Last administered on 09/14/16 11:38; Start 09/13/16 at 14:15 Oxycodone/ Acetaminophen (Percocet 10/325) 1 tab PRN Q4HRS PRN PO MILD - MODERATE PAIN Last administered on 09/18/16 22:43; Start 09/13/16 at 15:00 Morphine Sulfate 15 mg 15 mg BID PO Last administered on 09/20/16 09:32; Start 09/13/16 at 15:00 Potassium Chloride/Dextrose/ Sod Cl (KCl 20 Meq In D5W-1/2 NS) 1,000 ml @ 100 mls/hr 1X ONCE IV Last administered on 09/13/16 16:33; Start 09/13/16 at 15:00 ; Stop 09/14/16 at 00:59; Status DC Iohexol (Omnipaque 300 Mg/ml) 75 ml 1X ONCE IV Last administered on 09/14/16 08:40; Start 09/14/16 at 08:00; Stop 09/14/16 at 08:01; Status DC Info (Do NOT chart on this entry -- for MONITORING) 1 each PRN DAILY PRN MC SEE COMMENTS; Start 09/14/16 at 08:00; Stop 09/16/16 at 07:59; Status DC Ondansetron HCl (Zofran) 4 mg PRN Q6HRS PRN IV Nausea; Start 09/15/16 at 07:00; Stop 09/16/16 at 06:59; Status DC Fentanyl Citrate (Fentanyl 2ml Vial) 25 mcg PRN Q5MIN PRN IV MILD PAIN Last administered on 09/14/16 21:15; Start 09/15/16 at 07:00; Stop 09/16/16 at 06:59; Status DC Fentanyl Citrate (Fentanyl 2ml Vial) 50 mcg PRN Q5MIN PRN IV MODERATE PAIN Last administered on 09/15/16 15:10; Start 09/15/16 at 07:00; Stop 09/16/16 at 06: 59; Status DC Morphine Sulfate 1 mg 1 mg PRN Q10MIN PRN IV SEVERE PAIN; Start 09/15/16 at 07: 00; Stop 09/16/16 at 02:43; Status DC Lactated Ringer's (Iv Lactated Ringers) 1,000 ml @ 0 mls/hr Q0M IV Last administered on 09/15/16 09:16; Start 09/15/16 at 07:00; Stop 09/15/16 at 18:59; Status DC Lidocaine HCl 2 ml 1X PRN PRN ID IV START; Start 09/15/16 at 07:00; Stop at 06:59; Status DC Hydromorphone HCl (Dilaudid) 0.5 mg PRN Q10MIN PRN IV SEVERE PAIN, Second choice Last administered on 09/16/16 01:48; Start 09/15/16 at 07:00; Stop at 02:43; Status DC Prochlorperazine Edisylate (Compazine) 5 mg PACU PRN PRN IV NAUSEA; Start at 07:00; Stop 09/16/16 at 06:59; Status DC Fentanyl Citrate 25 mcg 25 mcg PRN Q1HR PRN IV MODERATE PAIN 1ST CHOICE Last administered on 09/17/16 09:25; Start 09/14/16 at 12:30 Bacitracin 67176 unit/Sodium Chloride 1,000 ml @ 1,000 mls/hr 1X PERIOP ONCE IRR Last administered on 09/15/16 10:33; Start 09/15/16 at 08:00; Stop 09/15/16 at 08:59; Status DC Potassium Chloride/Dextrose/ Sod Cl 1,000 ml @ 40 mls/hr 1X ONCE IV Last administered on 09/14/16 17:30; Start 09/14/16 at 17:30; Stop 09/15/16 at 18:29; Status DC Potassium Chloride/Dextrose/ Sodium Chloride (Iv D5% - 1/2 NS) 1,010 ml @ 40 mls/hr Q24H IV ; Start 09/14/16 at 23:15; Status UNV Fentanyl Citrate 50 mcg 50 mcg PRN Q2HR PRN IV SEVERE PAIN Last administered on 09/15/16 04:29; Start 09/14/16 at 23:15; Stop 09/15/16 at 14:35; Status DC Potassium Chloride/Dextrose/ Sod Cl (KCl 20 Meq In D5W-1/2 NS) 1,000 ml @ 40 mls/hr Q24H IV Last administered on 09/14/16 23:33; Start 09/14/16 at 23:30; Stop 09/16/16 at 19:44; Status DC Lidocaine/ Epinephrine (Xylocaine 1%-Epi 1:100,000) 20 ml STK-MED ONCE .ROUTE Last administered on 09/15/16 10:33; Start 09/15/16 at 06:41; Stop 09/15/16 at 06: 42; Status DC Thrombin 20,000 unit STK-MED ONCE TP Last administered on 09/15/16 10:33; Start 09/15/16 at 06:42; Stop 09/15/16 at 06:43; Status DC Gelatin (Gelfoam Powder) 1 gm STK-MED ONCE .ROUTE Last administered on 10:33; Start 09/15/16 at 06:42; Stop 09/15/16 at 06:43; Status DC Gelatin (Gelfoam Size 100) 1 each STK-MED ONCE .ROUTE ; Start 09/15/16 at 06:42 ; Stop 09/15/16 at 06:43; Status DC Povidone Iodine ( Betadine Oint) 28 domenica STK-MED ONCE TP ; Start 09/15/16 at 06:43 ; Stop 09/15/16 at 06:44; Status DC Bacitracin 14 domenica STK-MED ONCE TP Last administered on 09/15/16 10:33; Start at 06:43; Stop 09/15/16 at 06:44; Status DC Gadobutrol (Gadavist) 6 mmol 1X ONCE IV Last administered on 09/15/16 08:43; Start 09/15/16 at 08:15; Stop 09/15/16 at 08:19; Status DC Dexamethasone Sodium Phosphate (Decadron) 20 mg STK-MED ONCE .ROUTE ; Start 09/15 at 08:54; Stop 09/15/16 at 08:55; Status DC Ondansetron HCl 4 mg 4 mg STK-MED ONCE .ROUTE ; Start 09/15/16 at 08:54; Stop 09/15/16 at 08:55; Status DC Propofol 50 ml @ As Directed STK-MED ONCE IV ; Start 09/15/16 at 08:54; Stop 09/15 at 08:55; Status DC Propofol (Diprivan) 20 ml @ As Directed STK-MED ONCE IV ; Start 09/15/16 at 08:54 ; Stop 09/15/16 at 08:55; Status DC Lidocaine HCl 100 mg STK-MED ONCE .ROUTE ; Start 09/15/16 at 08:54; Stop 09/15/16 at 08:55; Status DC Fentanyl Citrate (Fentanyl 2ml Vial) 100 mcg STK-MED ONCE .ROUTE ; Start at 08:54; Stop 09/15/16 at 08:55; Status DC Remifentanil HCl (Ultiva) 2 mg STK-MED ONCE IV ; Start 09/15/16 at 08:54; Stop at 08:55; Status DC Sodium Chloride (Sodium Chloride) 50 ml STK-MED ONCE IJ ; Start 09/15/16 at 08:55 ; Stop 09/15/16 at 08:56; Status DC Rocuronium Mccall (Zemuron) 50 mg STK-MED ONCE .ROUTE ; Start 09/15/16 at 09:00 ; Stop 09/15/16 at 09:01; Status DC Midazolam HCl 2 mg 2 mg STK-MED ONCE .ROUTE ; Start 09/15/16 at 09:02; Stop at 09:03; Status DC Cefazolin Sodium/ Dextrose 50 ml @ As Directed STK-MED ONCE IV ; Start 09/15/16 at 09:12; Stop 09/15/16 at 09:13; Status DC Cefazolin Sodium/ Dextrose 50 ml @ 100 mls/hr 1X ONCE IV ; Start 09/15/16 at 09 :15; Stop 09/15/16 at 09:44; Status UNV Cefazolin Sodium/ Dextrose (Ancef 2gm Premix) 50 ml @ 100 mls/hr 1X ONCE IV Last administered on 09/15/16 10:11; Start 09/15/16 at 09:30; Stop 09/15/16 at 09: 59; Status DC Cellulose 1 each STK-MED ONCE .ROUTE Last administered on 09/15/16 10:33; Start 09/15/16 at 10:13; Stop 09/15/16 at 10:14; Status DC Mannitol (Mannitol) 12.5 g STK-MED ONCE .ROUTE ; Start 09/15/16 at 10:14; Stop at 10:15; Status DC Gelatin (Gelfoam Size 100) 1 each STK-MED ONCE .ROUTE ; Start 09/15/16 at 10:14 ; Stop 09/15/16 at 10:15; Status DC Phenylephrine HCl 1 mg STK-MED ONCE IV ; Start 09/15/16 at 10:34; Stop 09/15/16 at 10:35; Status DC Irrigating Solution (Duovisc Kit) 1 kit STK-MED ONCE .ROUTE ; Start 09/15/16 at 12:58; Stop 09/15/16 at 12:59; Status DC Multi-Ingred Cream/Lotion/Oil/ Oint (Artificial Tears Eye Oint) 7 domenica STK-MED ONCE .ROUTE ; Start 09/15/16 at 13:19; Stop 09/15/16 at 13:20; Status DC Fentanyl Citrate (Fentanyl 2ml Vial) 50 mcg PRN Q1HR PRN IV SEVERE PAIN Last administered on 09/16/16 14:24; Start 09/15/16 at 14:15; Stop 09/17/16 at 09:32; Status DC Fentanyl Citrate 25 mcg 25 mcg PRN Q1HR PRN IV SEVERE PAIN; Start 09/15/16 at 14 :15; Stop 09/15/16 at 14:35; Status DC Nicardipine HCl/ Sodium Chloride (Cardene/Iv Sodium Chloride 0.9% 250ml) 270 ml @ 27 mls/hr ONCE ONCE IV Last administered on 09/15/16 14:26; Start 09/15/16 at 14:30; Stop 09/16/16 at 00:29; Status DC Ketorolac Tromethamine (Toradol) 30 mg 1X ONCE IV Last administered on 21:03; Start 09/15/16 at 20:45; Stop 09/15/16 at 20:46; Status DC Ketorolac Tromethamine (Toradol) 15 mg PRN Q6HRS PRN IV INFLAMMATION/PAIN Last administered on 09/19/16 05:03; Start 09/16/16 at 03:00; Stop 09/21/16 at 02:59 Hydromorphone HCl (Dilaudid) 0.4 mg PRN Q4HRS PRN IVP MODERATE PAIN 2ND CHOICE Last administered on 09/17/16 15:58; Start 09/16/16 at 02:45 Ondansetron HCl (Zofran) 4 mg STK-MED ONCE .ROUTE ; Start 09/16/16 at 10:42; Stop 09/16/16 at 10:43; Status DC Ondansetron HCl (Zofran) 4 mg 1X ONCE IV Last administered on 09/16/16 11:00; Start 09/16/16 at 11:00; Stop 09/16/16 at 11:01; Status DC Gadobutrol (Gadavist) 6 mmol 1X ONCE IV Last administered on 09/16/16 11:00; Start 09/16/16 at 11:00; Stop 09/16/16 at 11:01; Status DC Methocarbamol (Robaxin) 750 mg PRN Q6HRS PRN PO MUSCLE SPASMS Last administered on 09/18/16 16:47; Start 09/16/16 at 15:30 Oxycodone/ Acetaminophen (Percocet 10/325) 2 tab PRN Q4HRS PRN PO MODERATE PAIN Last administered on 09/20/16 03:05; Start 09/16/16 at 15:30 Dexamethasone Sodium Phosphate (Decadron) 4 mg Q8HRS PO ; Start 09/18/16 at 14: 00; Stop 09/18/16 at 14:18; Status DC Magnesium Hydroxide (Milk Of Magnesia) 2,400 mg PRN DAILY PRN PO CONSTIPATION Last administered on 09/19/16 08:46; Start 09/18/16 at 12:15 Docusate Sodium (Colace) 100 mg DAILY PO Last administered on 09/20/16 09:33; Start 09/18/16 at 13:00 Senna/Docusate Sodium (Senna Plus) 1 tab PRN BID PRN PO CONSTIPATION Last administered on 09/19/16 21:05; Start 09/18/16 at 12:15 Dexamethasone (Decadron) 4 mg Q8HRS PO Last administered on 09/20/16 06:05; Start 09/19/16 at 06:00; Stop 09/22/16 at 22:01 Dexamethasone (Decadron) 4 mg Q12HR PO ; Start 09/23/16 at 09:00; Stop 09/26/16 at 21:01 Dexamethasone (Decadron) 2 mg Q8HRS PO ; Start 09/27/16 at 06:00; Stop 09/30/16 at 22:01 Dexamethasone (Decadron) 2 mg Q12HR PO ; Start 10/01/16 at 09:00; Stop 10/04/16 at 21:01 Dexamethasone (Decadron) 2 mg DAILYWBKFT PO ; Start 10/05/16 at 08:00; Stop 10/08 at 08:01 Dexamethasone (Decadron) 4 mg TID PO Last administered on 09/18/16 21:24; Start 09/18/16 at 14:30; Stop 09/18/16 at 21:01; Status DC Levetiracetam (Keppra) 500 mg BID PO Last administered on 09/20/16 09:32; Start 09/19/16 at 21:00 Magnesium Citrate (Citroma) 296 ml PRN 1X PRN PO CONSTIPATION; Start 09/20/16 at 09:15 Polyethylene Glycol (miraLAX PACKET) 17 gm DAILY PO Last administered on 09:33; Start 09/20/16 at 10:00 Active Scripts Active Reported Protonix (Pantoprazole Sodium) 20 Mg Tablet.dr 1 Tab PO DAILY DURAGESIC 75mcg/hr (Fentanyl) 1 Each Patch.td72 1 Patch TD Q72H Percocet 10-325 Mg Tablet (Oxycodone/Acetaminophen) 1 Each Tablet 1 Tab PO Q4- 6HRS Vitals/I & O Vital Sign - Last 24 Hours 09/19/16 09/19/16 09/19/16 09/19/16 11:00 15:00 17:47 19:17 Temp 98.2 98.1 98.0 98.2 98.1 98.0 Pulse 64 49 68 Resp 16 18 18 B/P 139/75 143/74 130/85 Pulse Ox 94 97 99 O2 Delivery Room Air Room Air Room Air Room Air 09/19/16 09/19/16 09/19/16 09/20/16 20:00 21:01 23:22 01:01 Temp 98.1 98.1 Pulse 61 Resp 20 18 20 B/P 153/85 Pulse Ox 97 95 95 O2 Delivery Room Air Room Air Room Air Room Air 09/20/16 09/20/16 09/20/16 09/20/16 03:05 03:25 04:05 07:00 Temp 97.7 97.8 97.7 97.8 Pulse 65 41 Resp 20 18 20 16 B/P 173/90 149/82 Pulse Ox 95 95 95 96 O2 Delivery Room Air Room Air Room Air Room Air 09/20/16 09/20/16 07:20 09:32 O2 Delivery Room Air Room Air Intake and Output 09/19/16 09/19/16 09/20/16 15:00 23:00 07:00 Intake Total 240 ml 1050 ml 200 ml Output Total 300 ml 0 ml Balance 240 ml 750 ml 200 ml DEYVI GALLEGOS MD Sep 20, 2016 09:55
[2016-09-20] MEDS ORDERED: POLYETHYLENE GLYCOL 3350 17 GM PACKET. PO SCH (10:00)
[2016-09-20] MEDS ORDERED: OXYC1TAB9 PO (10:36)
[2016-09-20] MEDS ORDERED: POLY17PO5 PO (10:36)
[2016-09-20] MEDS ORDERED: DEXA4TAB PO (10:43)
[2016-09-20] MEDS ORDERED: LEVE500T56 PO (10:43)
[2016-09-20 11:00] VITALS: BP 146/77
--- NOTE | 2016-09-20 12:42 | PDOC ---
SUBJECTIVE Subjective Denies acute changes. Had BM. OBJECTIVE Vital Signs Vital Signs Date Time Temp Pulse Resp B/P Pulse Ox O2 Delivery O2 Flow Rate FiO2 09/20/16 11:00 98.3 65 16 146/77 96 Room Air 98.3 09/20/16 09:32 Room Air 09/20/16 07:20 Room Air 09/20/16 07:00 97.8 41 16 149/82 96 Room Air 97.8 09/20/16 04:05 20 95 Room Air 09/20/16 03:25 97.7 65 18 173/90 95 Room Air 97.7 09/20/16 03:05 20 95 Room Air 09/20/16 01:01 20 95 Room Air 09/19/16 23:22 98.1 61 18 153/85 95 Room Air 98.1 09/19/16 21:01 20 97 Room Air 09/19/16 20:00 Room Air 09/19/16 19:17 98.0 68 18 130/85 99 Room Air 98.0 09/19/16 17:47 Room Air 09/19/16 15:00 98.1 49 18 143/74 97 Room Air 98.1 I & O Intake and Output 09/20/16 07:00 Intake Total 1490 ml Output Total 300 ml Balance 1190 ml Intake Oral 1490 ml Output Urine Total 300 ml PHYSICAL EXAM Physical Exam AAOx4, NAD, incision c/d/i flat with shelly, RAMESH 5/5, sensation intact LT, cerebellar function continues to improve ASSESSMENT/PLAN Assessment/Plan POD 5 suboccipital craniectomy with cerebellar mass resection -neurologically stable and improving - continues to recover well from surgery thus far -metastatic disease adeno - will receive adjunctive tx with his primary oncologist after d/c -continue therapies, increase activity as able -bowel regimen, had large BM -steroid taper to off next few weeks as ordered (to be continued as ordered after discharge from hospital) -keppra per neurology, no seizures -okay for d/c from NS standpoint when otherwise meets criteria from other services/PT/OT -upon d/c, will need follow-up with NS 2 weeks post-op for incision check and staple removal [phone] -upon d/c, will have activity restriction of no lifting over 10lbs and no strenuous activity -upon d/c, incision may be open to air or may have breathable gauze and tape as needed; keep incision clean and dry; do not soak, scrub, or submerge; avoid direct water pressure Problems: BHARTI VALADEZ MD Sep 20, 2016 12:42
--- NOTE | 2016-09-20 17:54 | OP ---
DATE OF SURGERY: 09/15/2016 PREOPERATIVE DIAGNOSES: Cerebellar mass. POSTOPERATIVE DIAGNOSES: Presumptive metastasis. SURGEON: Bry Valadez MD. PHOTO CARTOGRAPHER: None. ANESTHESIA: General. PROCEDURE: A stereotactic right suboccipital craniectomy for resection of cerebellar mass. ANESTHESIA: General. COMPLICATIONS: None intraprocedurally. INDICATIONS FOR THE PROCEDURE: The patient is a 61-year-old gentleman who presented with headaches, nausea and vomiting and some disequilibrium. Imaging of the head was obtained showing multiple diffuse enhancing lesions consistent with metastatic disease, most prominent being approximately 4 x 3 cm mass in the right cerebellum with mass effect on the fourth ventricle and throughout the posterior fossa. Please refer to the patient's chart for additional detail. DESCRIPTION OF PROCEDURE: After informed consent was obtained, the patient was brought into the operating room. He was placed under general anesthesia. He was placed in the prone position on the Diogenes frame. All pressure points were checked and padded appropriately. A [place] sugar reprocess operator head was attached to a pressure of 70 pounds and this was affixed to the bed in the prone position exposing the suboccipital and neck region. The patient had received a stereotactic MRI prior to anesthesia and this was registered with good localization. Midline incision extending from the region of the inion down to the upper cervical spine was made with a 10 blade scalpel. Monopolar electrocautery was utilized to dissect the avascular midline to the suboccipital region as well as to the upper cervical region of C1. Dissection was carried rightward to expose the bony right suboccipital region. The trajectory to the mass was planned with stereotaxis and craniectomy was performed with a pneumatic drill over the right suboccipital region. Once this was complete, the underlying dura was incised in a cruciate fashion and the leaflets were reflected in 4 directions. Again trajectory to the mass was localized with stereotaxis. Small corticectomy was made in the exposed brain with bipolar electrocautery with gentle suction. Dissection was carried to the mass lesion through the shortest trajectory through a small amount of parenchyma. Once the lesion was encountered, it was noted to be fairly friable from the adjacent parenchyma. The center of the lesion was accessed with a pituitary rongeur as well as bipolar electrocautery and several sections were sent for frozen, which was consistent with metastatic adenocarcinoma. The margins of the mass were gently dissected using microdissection techniques with bipolar electrocautery and cottonoids and the remained the lesion was removed in a piecemeal fashion. Small area near the brainstem was noted to be fairly adherent and this was carefully dissected and minimized, but large majority of this metastatic lesion was removed and the posterior fossa was noted to be very well decompressed. Additionally, the adjacent parenchyma was noted grossly to be without tumor and this was verified with stereotaxis. Upon completion of this, pristine hemostasis was achieved with Gelfoam thrombin, generous gentle warm isotonic irrigation as well as some use of bipolar electrocautery. Once hemostasis was achieved, the parenchyma was lined with Surgicel. Once this was complete, the dura was then reapproximated with 4-0 Nurolon in a simple interrupted fashion. A region of dura was noted to be ____ approximated and the small piece of adjacent muscle was taken and sutured to the surface of the dura for an additional protective barrier. Duragen and DuraSeal was then applied as an onlay duraplasty over the dural repair. A small piece of mesh was instituted over the craniectomy site and secured with 4-mm screws. Upon completion of this additional DuraSeal was applied over the repair site. The wound was generously irrigated with antibiotic irrigation prior to the final closure. The muscles and fascia were then reapproximated with 0 Vicryl in a simple interrupted fashion. The subcutaneous tissues were reapproximated with 2-0 Vicryl in interrupted inverted fashion and the skin was reapproximated with shelly. Once this was complete, the wound was dressed with Xeroform, Telfa, 4 x 4 and Tegaderm. The Santizo was removed and the patient was turned supine onto an adjacent bed, a head wrap of Kerlix was applied with pressure over the incision site. The patient was subsequently extubated in the operating room and returned to the ICU in stable condition. At the end of procedure, all needle and sponge counts were correct x 2. There were no intraprocedural complications apparent. BRY VALADEZ MD DR: PAULINE/nancy JOB#: [id number] / [id number]
[2016-09-23] MEDS ORDERED: DEXAMETHASONE 4 MG TABLET PO SCH (09:00)
--- NOTE | 2016-09-23 09:47 | DS ---
DATE OF DISCHARGE: 09/20/2016 CHIEF COMPLAINT: Headache, cerebellar mass. HISTORY OF PRESENT ILLNESS: The patient is a 61-year-old gentleman with a previous diagnosis of esophageal cancer for which he had received concurrent neoadjuvant chemoradiation followed by esophagectomy in [place], [place]. He started having headaches, which did not get relieved. An MRI showed abnormalities with a cerebellar mass. He was taken to the operating room by Dr. Moreno on 09/15/2016 for resection. Suspicion was for possible metastatic disease from his primary cancer. Unfortunately, final path was not available by time of discharge. Postop course was uneventful. He had been started on Decadron steroid with taper during his hospitalization. He was referred to rehabilitation upon discharge. PHYSICAL EXAMINATION: Please refer to note from discharge date. DISCHARGE DATE: 09/20/2016 DISCHARGE DISPOSITION: To SNF. DISCHARGE CONDITION: Improved. DISCHARGE DIAGNOSES: 1. Cerebellar mass. 2. Esophageal cancer. DISCHARGE MEDICATIONS: Please refer to MAR. DISCHARGE INSTRUCTIONS: The patient will follow up with his primary oncologist in [place], [place]. BHARGAV PERALTA MD DR: UR/nts JOB#: [id number] / [id number]
[2016-09-27] MEDS ORDERED: DEXAMETHASONE 1 MG TABLET PO SCH (06:00)
[2016-10-01] MEDS ORDERED: DEXAMETHASONE 1 MG TABLET PO SCH (09:00)
[2016-10-05] MEDS ORDERED: DEXAMETHASONE 1 MG TABLET PO SCH (08:00)
== END 2016-09-20 12:30 | disposition home or self-care (01) | DRG 23 ==
LOC: ER 09:35 → 1 WEST ICU 11:25 → 4 NORTH 09-17 16:38
PROVIDERS: ADMIT Internal Medicine; ATTEND Internal Medicine
PROC: 00Q20ZZ Repair Dura Mater, Open Approach (ICD-10-PCS; 2016-09-15)
PROC: 00BC0ZZ Excision of Cerebellum, Open Approach (ICD-10-PCS; principal; 2016-09-15 09:00)
DX: I61.4 Nontraumatic intracerebral hemorrhage in cerebellum (principal); G93.6 Cerebral edema; C79.31 Secondary malignant neoplasm of brain; G43.909 Migraine, unspecified, not intractable, without status migrainosus; I16.0 Hypertensive urgency; N18.9 Chronic kidney disease, unspecified; K59.03 Drug induced constipation; K21.9 Gastro-esophageal reflux disease without esophagitis; J44.9 Chronic obstructive pulmonary disease, unspecified; I12.9 Hypertensive chronic kidney disease with stage 1 through stage 4 chronic kidney disease, or unspecified chronic kidney disease; F41.9 Anxiety disorder, unspecified; Z79.52 Long term (current) use of systemic steroids; Z82.3 Family history of stroke; Z82.49 Family history of ischemic heart disease and other diseases of the circulatory system; Z82.5 Family history of asthma and other chronic lower respiratory diseases; Z85.01 Personal history of malignant neoplasm of esophagus; Z85.028 Personal history of other malignant neoplasm of stomach; Z87.891 Personal history of nicotine dependence; Z90.3 Acquired absence of stomach [part of]; Z92.21 Personal history of antineoplastic chemotherapy; Z92.3 Personal history of irradiation; Z90.49 Acquired absence of other specified parts of digestive tract
CPT/HCPCS: 36415; 70450; 70552; 70553; 71260; 74177; 80048; 80053; 85027; 85610; 85730; 86850; 86900; 86901; 87641; 88307; 88331; 88341; 88342; 93005; 96361; 96374; 96375; C1713; G0481; J0690; J1100; J1170; J1885; J1953; J2060; J2150; J2250; J2370; J2405; J2704; J3010; J3490; J7030; J7050; J7120; J8540; J8597; Q9967; 92610; 97116; 97530; 99285-25; A9585; G0641